=== PATIENT | male | born 1945 | race Caucasian/White ===

== ENCOUNTER → 2021-07-23 12:23 | Outpatient (BNVA) | payer MEDICARE, SELFPAY | PROVIDERS: PCP Nurse Practitioner Family; Visit Provider Internal Medicine Cardiovascular Disease | DX: I25.10 Atherosclerotic heart disease of native coronary artery without angina pectoris (principal); I10 Essential (primary) hypertension | CPT/HCPCS: 93005; 99212 ==

== ENCOUNTER → 2022-07-11 09:26 | Outpatient (REF) | payer MEDICARE, SELFPAY ==
--- NOTE | 2022-07-11 09:30 | CA_ITS ---
Transthoracic Echocardiogram Patient (Last, First, Middle): Luc Boswell A Gender: Male Date of : 1945 Age: 76 Procedure Date: 07/11/2022 Procedure Type: Transthoracic Echocardiogram Location: OP Height: 157.48 cm Weight: 70.76 kg BSA: 1.72 m2 Heart Rate: 63 bpm BP: 120 / 60 mmHg [employer] Teacher: SB Referring MD: Brijesh Kang MD Symptoms: I25.10 - Atherosclerotic heart disease of [place] coronary... Study Quality: Adequate ECG Rhythm: Sinus Conclusions: - The left ventricular systolic function is normal. The calculated ejection fraction is 61% by biplane method. - Mildly increased right ventricular cavity size. - There is moderate calcification of the aortic valve. No significant aortic stenosis. Findings Left Ventricle Normal left ventricular cavity size. There is normal left ventricular wall thickness. The left ventricular systolic function is normal. The calculated ejection fraction is 61% by biplane method. There is no evidence of regional wall motion abnormalities. Diastolic function is normal for age. Right Ventricle Mildly increased right ventricular cavity size. There is normal right ventricular systolic function. Atria Both atria are normal in size. Aortic Valve There is moderate calcification of the aortic valve. There is trace (trivial) aortic valve regurgitation. No significant aortic stenosis. Mitral Valve The mitral valve appears normal. There is trace mitral valve regurgitation. There is no mitral valve stenosis. Pulmonic Valve The pulmonic valve is likely normal. Tricuspid Valve Normal tricuspid valve structure. There is trace tricuspid valve regurgitation. The pulmonary artery systolic pressure is normal. Great Vessels The aortic annulus, sinuses of valsalva, and asc aorta are normal in size. Venous The inferior vena cava is normal in size and collapses greater than 50% with inspiration. Pericardium/Pleural There is no evidence of pericardial effusion. Prior Study Comparison Changes noted compared to prior study dated: 04/06/2015. See comments on RV size. Measurements 2D Linear Measurements IVSd: 0.80 0.6-0.9/0.6-1.0 cm LVIDd: 4.88 3.9-5.3/4.2-5.9 cm LVIDd Index: 2.84 2.4-3.2/2.2-3.1 cm/m2 LVIDs: 2.99 2.0-3.6 cm LVPWd: 0.76 0.7-1.1 cm LA Diam: 3.80 2.7-3.8/3.0-4.0 cm LAIDs Index: 2.21 1.5-2.3 cm/m2 LV Mass: 157.43 67-162/88-224 g LV Mass Index: 91.53 43-95/49-115 g/m2 LVOT Diam: 2.00 3.0+(-)1.3 cm 2D Systolic Function EF 4C: 66.50 >55% EF 2C: 54.70 >55% EF BiP: 61.00 >55% Mitral Valve MV Pk E: 0.61 MV PK A: 0.88 MV Decel Time: 186.00 E/A: 0.70 E'Lateral: 10.60 E'Medial: 4.57 E/E' Med: 13.30 E/E' Lat: 5.70 PHT: 55.00 MVA PHT: 4.00 Decel Wells: 3.26 Aortic Valve AoV Pk Gaurav: 2.02 AoV Mn Gaurav: 1.40 AoV VTI: 0.40 AoV Pk Grad: 16.00 Aov Mn Grad: 9.00 TALON Cont.VTI: 1.79 LVOT LVOT Pk Gaurav: 1.20 LVOT Mn Gaurav: 0.78 LVOT VTI: 0.23 LVOT Pk Grad: 6.00 LVOT Mn Grad: 3.00 LVOT Diam: 2.00 LVOT Area: 3.14 Diastolic Function MV Pk E: 0.61 MV Pk A: 0.88 E/A: 0.70 E'Medial: 4.57 E/E' Med: 13.30 E' Laterial: 10.60 E/E' Lat: 5.70 Right Ventricle TAPSE (mm): 22.60 TVS' Gaurav: 12.40 Tricuspid Valve TR Pk Gaurav: 2.09 TR Pk Grad: 17.00 RVSP: 17.00 Great Vessels Aorta Sinus of Valsalva: 3.40 2.0-3.5 cm Ao Asc: 3.30 2.1-3.4 cm Pulmonary Valve PV Pk Gaurav: 1.06 Peak PV Grad: 4.00 Updated in Other Vendor System with Status of Final Butch Webb MD electronically signed on 07/13/2022 12:10:32 PM with status of Final
== END ==
LOC: HO.CARD 09:26
PROVIDERS: PCP Internal Medicine; Visit Provider Internal Medicine Cardiovascular Disease
DX: I25.10 Atherosclerotic heart disease of native coronary artery without angina pectoris (principal)
CPT/HCPCS: 93306

== ENCOUNTER → 2022-08-28 13:05 | Outpatient (BNVA) | payer MEDICARE, SELFPAY | PROVIDERS: PCP Internal Medicine; Visit Provider Internal Medicine Cardiovascular Disease | DX: I25.10 Atherosclerotic heart disease of native coronary artery without angina pectoris (principal); R07.9 Chest pain, unspecified | CPT/HCPCS: 93005; 99212 ==

== ENCOUNTER → 2022-09-26 09:44 | Outpatient (REF) | payer MEDICARE, SELFPAY ==
--- NOTE | ~2022-09-26 | NM_ITS ---
Lexiscan Myocardial perfusion study Indication: Chest pain, assess for coronary disease ischemia Technique: The patient was brought in for a Lexiscan perfusion study on 09/26/2022 and was injected 0.4 mg of Lexiscan intravenously. Within a minute of this injection 25mCi of sestamibi was given intravenously. Images were obtained using the SPECT gamma camera interlaced with the gating device. Images were obtained in supine position. Resting perfusion study was performed on 09/30/2022. Patient was administered 25 mCi of sestamibi intravenously at rest. Images were then obtained in supine position. Images were processed with the software and compared side to side in short axis, horizontal long axis and vertical long axis views. Total DLP 94mGy-cm. Findings: Raw acquisition reviewed. The stress perfusion study showed moderate to severely diminished tracer uptake in the basal to mid inferior wall. There is improvement with CT attenuation correction and hence could be from diaphragmatic attenuation artifact. There is also minimally reduced tracer uptake in mid anteroseptal wall with improvement during CT attenuation correction. The gated study shows normal LV systolic function with calculated LVEF of 71%. LV cavity is normal in size. The gated study shows normal wall thickening and contraction of segments. Resting study shows no significant perfusion abnormality. Both uncorrected as well as CT attenuation corrected images were reviewed. Gating at rest reveals normal wall motion with ejection fraction at 74%. The findings are consistent with reversible defect in the basal to mid inferior wall but improving with CT attenuation correction and hence could be from diaphragmatic attenuation artifact. Less likely from ischemia. Mild mid to distal mid anteroseptal defect which also improves with CT attenuation correction. NM/NM clark perf SPECT rest & str Impression: 1. Myocardial perfusion imaging study shows reversible mid to distal inferior defect suspected to be from diaphragmatic attenuation artifact; less likely from ischemia. Mild reversible defect in the mid anteroseptal wall, could indicate mild degree of ischemia vs artifact. 2. Gated LVEF is >70% during stress and rest. 3. Transient ischemic dilatation not present. EKG component of the test reported separately..
--- NOTE | 2022-09-26 09:56 | CA_ITS ---
Acquisition Time: 2022-09-26 10:10:11 Total Exercise Time: 00:02:00 Test Indications: CP Medications: SEE CHART Protocol: LEXISCAN Max HR: 102 BPM 71% of Pred: 142 BPM Max BP: 136/074 mmHG Max Work Load: 1.0 METS Pharmacological stress test with Lexican injection, while sitting and kicking his legs, without anginal symptoms, with PACs, with normotensive response to injection, with nondiagnostic EKG for ischemia. In recovery he reported abdominal cramping that was treated with Aminophylline 75mg IVP to reverse Lexiscan with improvement in symptom. Nuclear images pending. Test reviewed with Dr Kang Referred By: Brijesh Kang Overread By: BREONNA MARTELL
== END ==
LOC: HO.CARD 09:44
PROVIDERS: PCP Internal Medicine; Visit Provider Internal Medicine Cardiovascular Disease
DX: R07.9 Chest pain, unspecified (principal)
CPT/HCPCS: 78452; 93017; A9500; J0280; J2785

== ENCOUNTER 2022-10-23 12:24 | Outpatient (REF) | payer MEDICARE, SELFPAY ==
[2022-10-23 12:56] LABS: Basophils Percent Auto 0.2 % (0-2); Eosinophils Absolute Auto 0.1 X10*3/uL (0.0-0.4); Eosinophils Percent Auto 1.8 % (0-4); Hematocrit 40.3 % (42.0-52.0); Hemoglobin 13.6 g/dl (14.0-18.0); Imm Gran Abs Auto 0.01 X10*3/uL (0.00-0.03); Imm Gran Pct Auto 0.2 % (0.0-0.4); Lymphocytes Absolute Auto 1.5 X10*3/uL (1.2-4.9); MANUAL DIFF FLAG NO; Mean Corpuscular HGB Conc 33.7 g/dl (31.0-36.0); Mean Corpuscular Hemoglobin 31.6 pg (27.0-33.0); Mean Corpuscular Volume 93.7 fL (80.0-98.0); Mean Platelet Volume 9.4 fL (9.4-12.4); Monocytes Absolute Auto 0.6 X10*3/uL (0.1-1.2); Monocytes Percent Auto 9.5 % (2-11); Neutrophils Absolute Auto 4.3 x10*3/uL (2.0-8.3); Neutrophils Percent Auto 65.3 % (45-73); Platelet Count 231 X10*3/uL (160-400); Red Cell Distribution Width 13.5 % (11.0-16.0); White Blood Count 6.6 X10*3/uL (4.8-10.8)
[2022-10-23 13:07] LABS: Estimated Average Glucose 117 mg/dL; Hemoglobin A1c % 5.7 %
[2022-10-23 13:25] LABS: Alanine Aminotransferase 19 U/L (0-40); Albumin Level 4.1 g/dL (3.5-5.0); Alkaline Phosphatase 120 U/L (39-117); Anion Gap 12 (12-20); Aspartate Amino Transferase 17 U/L (5-37); Bilirubin Total 0.8 mg/dL (0.0-1.0); Blood Urea Nitrogen 12 mg/dL (9-16); Calcium 9.4 mg/dL (8.4-10.2); Carbon Dioxide 29 mmol/L (22-29); Chloride 106 mmol/L (96-108); Cholesterol 116 mg/dL; Estimated Glomerular Filt Rate > 60; Glucose Random 113 mg/dL (60-115); HDL Cholesterol 37 mg/dL; LDL Cholesterol Calculated 67 mg/dl; Potassium 4.4 mmol/L (3.3-5.1); Sodium 143 mmol/L (135-145); Total Protein 6.3 g/dL (6.5-8.0); Triglycerides 63 mg/dL
== END 2022-10-23 12:25 | disposition home or self-care (01) ==
LOC: HO.LAB 12:24
PROVIDERS: Visit Provider Registered Nurse
DX: Z00.00 Encounter for general adult medical examination without abnormal findings (principal); I10 Essential (primary) hypertension; I25.10 Atherosclerotic heart disease of native coronary artery without angina pectoris; E78.5 Hyperlipidemia, unspecified; R07.9 Chest pain, unspecified; R93.1 Abnormal findings on diagnostic imaging of heart and coronary circulation; R73.01 Impaired fasting glucose; Z95.5 Presence of coronary angioplasty implant and graft; Z79.899 Other long term (current) drug therapy
CPT/HCPCS: 36415; 80053; 80061; 83036; 85025; 99212

== ENCOUNTER 2022-11-21 09:32 | Outpatient (REF) | payer MEDICARE, SELFPAY ==
[2022-11-21 09:50] LABS: MANUAL DIFF FLAG NO
[2022-11-21 10:32] LABS: Basophils Percent Auto 0.2 % (0-2); Eosinophils Absolute Auto 0.1 X10*3/uL (0.0-0.4); Eosinophils Percent Auto 2.3 % (0-4); Hematocrit 43.4 % (42.0-52.0); Hemoglobin 14.8 g/dl (14.0-18.0); Imm Gran Abs Auto 0.01 X10*3/uL (0.00-0.03); Imm Gran Pct Auto 0.2 % (0.0-0.4); Lymphocytes Absolute Auto 1.2 X10*3/uL (1.2-4.9); Lymphocytes Percent Auto 21.9 % (20-40); Mean Corpuscular HGB Conc 34.1 g/dl (31.0-36.0); Mean Corpuscular Volume 93.9 fL (80.0-98.0); Mean Platelet Volume 9.9 fL (9.4-12.4); Monocytes Absolute Auto 0.5 X10*3/uL (0.1-1.2); Monocytes Percent Auto 9.5 % (2-11); Neutrophils Absolute Auto 3.7 x10*3/uL (2.0-8.3); Neutrophils Percent Auto 65.9 % (45-73); Platelet Count 235 X10*3/uL (160-400); Red Blood Count 4.62 X10*6/uL (4.60-5.80); Red Cell Distribution Width 13.2 % (11.0-16.0); White Blood Count 5.6 X10*3/uL (4.8-10.8)
[2022-11-21 11:05] LABS: Iron 124 mcg/dL (45-160); Percent Iron Saturation 41 % (15-50); Total Iron Binding Capacity 301 mcg/dL (228-428); Unsaturated Iron Binding 177 ug/dL
[2022-11-21 11:48] LABS: Ferritin 208 ng/mL (20-250)
[2022-11-21 12:10] LABS: Vitamin B12 520 pg/mL (200-900)
== END 2022-11-21 09:33 | disposition home or self-care (01) ==
LOC: HO.LAB 09:32
PROVIDERS: PCP Internal Medicine; Visit Provider Registered Nurse
DX: D64.9 Anemia, unspecified (principal)
CPT/HCPCS: 36415; 82607; 82728; 83540; 85025

== ENCOUNTER → 2023-04-07 11:03 | Outpatient (BNVA) | payer MEDICARE, SELFPAY | PROVIDERS: PCP Internal Medicine; Referring Provider Internal Medicine; Visit Provider Internal Medicine Cardiovascular Disease | DX: I25.10 Atherosclerotic heart disease of native coronary artery without angina pectoris (principal); I10 Essential (primary) hypertension; Z79.899 Other long term (current) drug therapy | CPT/HCPCS: 99212 ==

== ENCOUNTER 2023-10-20 11:14 | Outpatient (AMB) | payer MEDICARE, SELFPAY ==
--- NOTE | 2023-10-20 11:16 | MHC.OFFVIS ---
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 Allergy (Unknown, Uncoded 10/23/22 12:55) Unknown Medication List - Last Reconciled 10/20/23 by Brijesh Kang MD alfuzosin ER 10 mg PO DAILY aspirin (Adult Aspirin Regimen) 81 mg PO DAILY atorvastatin 80 mg PO DAILY isosorbide mononitrate ER 30 mg PO DAILY lisinopril 10 mg PO DAILY metoprolol succinate ER 50 mg PO DAILY HPI HPI Comments History of Present Illness Details Luc comes for follow-up. Patient since I last saw him denies any exertional chest pain. Remains active. Taking all his medications. Although his prostate medications was stopped due to low blood pressure it seems like. He denies any lightheadedness, syncope. Denies any heart failure symptoms. Denies any palpitations, lightheadedness, syncope. Takes all his medications now. [facility] Medical History Hyperlipidemia HTN (hypertension) CAD (coronary artery disease) Surgical History Stented coronary artery Hx of cardiac cath Family History Father Cancer Mother Cancer Social History Patient Tobacco Use Status: Former Tobacco user Review of Systems Const Denies chills, Denies fatigue, Denies fever(s), Denies frequent falls, Denies weakness, Denies weight gain and Denies weight loss ENT Denies dizziness Card Denies chest pain, Denies leg edema, Denies lightheadedness, Denies palpitations, Denies dyspnea, Denies dyspnea on exertion, Denies orthopnea and Denies other (loss of consciousness) Resp Denies cough, Denies dyspnea and Denies dyspnea on exertion GI Denies hematochezia and Denies change in stool character Musc Denies abnormal gait, Denies muscle weakness, Denies numbness, Denies radiating pain into limb and Denies tingling Neuro Denies abnormal gait, Denies dizziness, Denies frequent falls, Denies numbness, Denies tingling and Denies weakness Endo Denies fatigue and Denies palpitations Physical Exam Vital Signs: Last Vital Signs Pulse 59 10/20/23 11:19 BP 122/80 10/20/23 11:19 BMI result Body Mass Index 27.7 Const General: cooperative, healthy appearing, comfortable and no acute distress Nutritional Appearance: thin and other (Frail appearing elderly man) Orientation/consciousness: patient oriented x3 Neck Neck: Yes normal visual inspection Resp Effort & Inspection: normal respiratory effort Auscultation: clear to auscultation bilaterally, no crackles, no rales, no rhonchi and no wheezes Cardio Jugular venous distension: no JVD Rate: regular rate Rhythm: regular rhythm Heart sounds: S1 normal heart sound present, S2 normal heart sound present, no gallops, no murmurs and no rubs GI Inspection: Yes normal to inspection Neuro General: patient oriented x3 Extrem General: Yes normal to inspection, No no pedal edema and No calf tenderness Psych Appearance: grossly normal Mental Status: mental status grossly normal Speech and movement: Normal speech and movement present Office Procedures EKG Details: EKG shows normal sinus rhythm at [address] changes [id number]-[id number], Complete Assessment & Plan Assessment & Plan (1) CAD (coronary artery disease): Code(s): I25.10 - Atherosclerotic heart disease of [place] coronary artery without angina pectoris Plan: CAD with prior drug clinic sent to [facility] with recent exertional symptoms which are now controlled on dual antianginal therapy. He has mildly abnormal myocardial perfusion imaging. Advised to call me with any recurrent exertional symptoms on dual antianginal therapy that might require cardiac catheterization. Continue aggressive risk factor modification. Continue high-intensity statin therapy. Target goal LDL closer to 60 mg/dL. Continue low-dose aspirin therapy for life. Advised to maintain activity level as tolerated. (2) HTN (hypertension): Code(s): I10 - Essential (primary) hypertension Plan: Hypertension which is well optimized on today's exam. Continue current therapy. Importance of good blood pressure control was discussed. Advised to maintain adequate hydration. Low-salt diet was discussed. Advised to monitor blood pressure at home maintain a log. Will follow up in the clinic in 6 months. Thank you for allowing me to partake in his care Orders: Orders Lipid Panel Today I25.10 - Atherosclerotic heart disease of [place] coronary artery without angina pectoris Coding Level of Care Code Est Pt Level 4 (09084) Diagnoses CAD (coronary artery disease) I25.10 HTN (hypertension) I10 CPT Codes EKG - CPT: 22302-[id number], Complete ([id number])
[2023-10-20 11:19] VITALS: BP 122/80; PULSE 59; BMI 27.7
== END 2023-10-20 11:37 | disposition home or self-care (01) ==
PROVIDERS: Visit Provider Internal Medicine Cardiovascular Disease
DX: I25.10 Atherosclerotic heart disease of native coronary artery without angina pectoris (principal); I10 Essential (primary) hypertension
CPT/HCPCS: 93010; 99214

== ENCOUNTER → 2023-10-20 11:14 | Outpatient (BNVA) | payer MEDICARE, SELFPAY | PROVIDERS: Visit Provider Internal Medicine Cardiovascular Disease | DX: I25.10 Atherosclerotic heart disease of native coronary artery without angina pectoris (principal); R00.1 Bradycardia, unspecified; I10 Essential (primary) hypertension; Z98.890 Other specified postprocedural states; Z95.5 Presence of coronary angioplasty implant and graft | CPT/HCPCS: 93005; 99212 ==

== ENCOUNTER 2023-10-28 10:14 | Outpatient (REF) | payer MEDICARE, SELFPAY ==
[2023-10-28 11:16] LABS: Cholesterol 140 mg/dL (<200); HDL Cholesterol 42 mg/dL (>40); LDL Cholesterol Calculated 77 mg/dL (<100); Triglycerides 105 mg/dL (<150)
== END 2023-10-28 10:15 | disposition home or self-care (01) ==
LOC: HO.LAB 10:14
PROVIDERS: PCP Internal Medicine; Visit Provider Internal Medicine Cardiovascular Disease
DX: I25.10 Atherosclerotic heart disease of native coronary artery without angina pectoris (principal)
CPT/HCPCS: 36415; 80061

== ENCOUNTER 2023-12-10 12:00 | Emergency (ER) | payer MEDICARE, SELFPAY ==
--- NOTE | ~2023-12-10 | XR_ITS ---
EXAMINATION: XR KNEE LEFT XR KNEE RIGHT CLINICAL INFORMATION: Knee pain COMPARISON: None TECHNIQUE: Right knee, 4 views Left knee, 4 views FINDINGS: Left knee: Bones have normal alignment. No fracture, subluxation or joint effusion. Moderate narrowing of medial tibiofemoral joint space with subarticular sclerosis and small marginal osteophytes. Also, marginal osteophytes are present at mildly degenerated without femoral and lateral tibiofemoral compartments. There are mild peripheral vascular calcifications in the lower extremity. Right knee: No fracture, subluxation or joint effusion. Minimal tibial osteophytes at tibiofemoral compartments. There are small osteophytes of the patella. Peripheral vascular calcifications are noted. XR/XR knee RT 3V IMPRESSION: * No acute osseous injury at either knee. * Osteoarthritis of the knees, left knee worse than right knee. At the left knee, the joint degeneration is worst (moderate in degree) at the medial tibiofemoral compartment.
--- NOTE | ~2023-12-10 | XR_ITS ---
EXAMINATION: XR LUMBOSACRAL SPINE CLINICAL INFORMATION: Back pain COMPARISON: Lumbar spine radiographs 08/13/2013 TECHNIQUE: Three views of the lumbosacral spine. FINDINGS: Degenerative changes are noted throughout the visualized spine with relative sparing of only L5-S1. Joint space narrowing seen elsewhere most marked from L2 through L5. There is endplate sclerosis and osteophyte formation. No bony destructive lesions are seen. XR/XR lumbar spine 2-3V IMPRESSION: Degenerative changes throughout the spine as described above.
--- NOTE | ~2023-12-10 | XR_ITS ---
EXAMINATION: XR KNEE LEFT XR KNEE RIGHT CLINICAL INFORMATION: Knee pain COMPARISON: None TECHNIQUE: Right knee, 4 views Left knee, 4 views FINDINGS: Left knee: Bones have normal alignment. No fracture, subluxation or joint effusion. Moderate narrowing of medial tibiofemoral joint space with subarticular sclerosis and small marginal osteophytes. Also, marginal osteophytes are present at mildly degenerated without femoral and lateral tibiofemoral compartments. There are mild peripheral vascular calcifications in the lower extremity. Right knee: No fracture, subluxation or joint effusion. Minimal tibial osteophytes at tibiofemoral compartments. There are small osteophytes of the patella. Peripheral vascular calcifications are noted. XR/XR knee LT 3V IMPRESSION: * No acute osseous injury at either knee. * Osteoarthritis of the knees, left knee worse than right knee. At the left knee, the joint degeneration is worst (moderate in degree) at the medial tibiofemoral compartment.
[2023-12-10 12:27] VITALS: BP 135/76; PULSE 71; RESP 18; TEMP 36.4; O2SAT 95; BMI 29.7
--- NOTE | 2023-12-10 12:27 | ED_ITS ---
HPI - Extremity Injury (Lower) General Chief Complaint: Extremity Injury, Lower Stated Complaint: Knee pain Time Seen by Provider: 12/10/23 14:07 Source: patient Mode of arrival: ambulatory Limitations: no limitations History of Present Illness HPI Narrative: Patient states that after shoveling the heavy snow he developed bilateral knee pain, no falling, nothing popped. complaint: knee injury Onset (ago): hour(s) Place: home Related Data Home Medications Medication Instructions Recorded Confirmed aspirin 81 mg tablet,delayed 81 mg PO DAILY 07/23/21 10/20/23 release (Adult Aspirin Regimen) alfuzosin 10 mg tablet,extended 10 mg PO DAILY 10/23/22 10/20/23 release 24 hr Previous Rx's Medication Instructions Recorded atorvastatin 80 mg tablet 80 mg PO DAILY #30 tabs 07/25/23 metoprolol succinate 50 mg 50 mg PO DAILY #90 tabs 09/23/23 tablet,extended release 24 hr ezetimibe 10 mg tablet (Zetia) 10 mg PO DAILY #30 tabs 10/29/23 isosorbide mononitrate 30 mg 30 mg PO DAILY #30 tabs 11/05/23 tablet,extended release 24 hr lisinopril 10 mg tablet 10 mg PO DAILY #90 tabs 12/02/23 meloxicam 7.5 mg tablet 7.5 mg PO DAILY #20 tabs 12/10/23 Allergies Allergy/AdvReac Type Severity Reaction Status Date / Time No Known Allergies Allergy Verified 04/07/23 11:26 Review of Systems Review of Systems: Yes all other systems are reviewed and are negative Neurologic: Denies Sensory deficit (Neuro) PMFSH Past Medical History Onset Date is defined in the Problem List Problems that require an onset date and time if occurred within 24 hrs of arrival to the ED Aortic Dissection and Rupture; Neurologic impairment; Cardiopulmonary Arrest; Endotracheal Intubation; Insertion or Replacement of Mechanical Circulatory Assist Device Medical History Hyperlipidemia HTN (hypertension) CAD (coronary artery disease) Surgical History Stented coronary artery Hx of cardiac cath Family History Family History Father Cancer Mother Cancer Social History Social History Patient Tobacco Use Status: Former Tobacco user Physical Exam Vital Signs: Vital Signs: Last Vital Signs Temp 97.5 F 12/10/23 12:27 Pulse 71 12/10/23 12:27 Resp 18 12/10/23 12:27 BP 135/76 12/10/23 12:27 Pulse Ox 95 12/10/23 12:27 O2 Del Method Room Air 12/10/23 12:27 BMI result Body Mass Index 29.7 Const: General: healthy appearing Nutritional Appearance: average body habitus Orientation/consciousness: oriented to person and patient oriented x3 Limitations: no limitations HEENT: Head: Yes normal to inspection Ears: external ears normal General nose exam: Normal external nose present Mouth: Normal oral and palatal mucosa present and oropharynx normal Throat: Yes posterior oropharynx normal Eyes: General: appearance normal, both eyes and all related structures Neck: Other: supple Neck: Yes normal visual inspection Chest: Chest palpation & inspection: normal inspection of the chest Resp: Auscultation: clear to auscultation bilaterally Cardio: Jugular venous distension: no JVD Rate: regular rate Rhythm: regular rhythm Heart sounds: S1 normal heart sound present and S2 normal h eart sound present GI: Inspection: Yes normal to inspection Palpation (GI): Soft to palpation, nontender and No hepatosplenomegaly present Auscultation: normal bowel sounds : General: Yes no CVA tenderness Back/Spine/Pelvis: Other: no tenderness Back: no CVA tenderness Skin: General skin exam: no rashes or lesions noted Neuro: General: oriented to person and patient oriented x3 Cranial nerves: Yes CN's II-XII intact bilaterally Motor exam (neuro): 5/5 motor strength present throughout Sensory Exam: No Sensory deficit (Neuro) Extrem: Other: bilateral chronic changes, no effusion, no erythema, Psych: Appearance: grossly normal Course Course Course Narrative: RME: 78 yo M w/ PMHx HTN, CAD, HLD, presenting to the ED c/o bilateral knee pain & low back pain s/p shoveling bottom of driveway. Denies injury or fall X-rays ordered Full HPI, ROS and PE to be performed by primary ED provider. Reevaluation(s) Reevaluation #1: Patient with mild strain from shoveliing snow Time: 14:18 Medical Decision Making Differential Diagnosis Differential Diagnoses: The differential diagnosis associated with the presentation includes (back strain, knee strain, internal derangement of knees, osteoarthritis) Independent Interpretation I performed an independent interpretation of an: Plain X-Ray (Knee: degenerative changes of the knees, Lumbar moderate degenerative changes) Tests considered The following testing was considered but not selected: MRI of knee and back were considered, but no acute changes Discharge Plan Discharge Clinical Impression: Lumbar back pain, Acute knee pain Patient Disposition: Home, Self-Care Instructions: Acute Low Back Pain (ED), Arthralgia (ED) Prescriptions: New meloxicam 7.5 mg tablet 7.5 mg PO DAILY Qty: 20 0RF No Action atorvastatin 80 mg tablet 80 mg PO DAILY Qty: 30 11RF metoprolol succinate 50 mg tablet extended release 24 hr 50 mg PO DAILY Qty: 90 3RF ezetimibe [Zetia] 10 mg tablet 10 mg PO DAILY Qty: 30 6RF Rx Instructions: This is for your cholesterol. Continue your atorvastatin along with this new med. isosorbide mononitrate 30 mg tablet extended release 24 hr 30 mg PO DAILY Qty: 30 11RF lisinopril 10 mg tablet 10 mg PO DAILY Qty: 90 3RF aspirin [Adult Aspirin Regimen] 81 mg tablet,delayed release (DR/EC) 81 mg PO DAILY alfuzosin 10 mg tablet extended release 24 hr 10 mg PO DAILY Referrals: [facility] [Provider Group] - 5 days (call for follow up)
== END 2023-12-10 15:12 | disposition home or self-care (01) ==
LOC: HO.ED 14:28
PROVIDERS: Emergency Provider Emergency Medicine; PCP Internal Medicine
DX: M54.50 Low back pain, unspecified (principal); M25.562 Pain in left knee; M25.561 Pain in right knee
CPT/HCPCS: 72100; 73562; 99282; 99283

== ENCOUNTER 2023-12-24 10:38 | Outpatient (AMB) | payer MEDICARE, SELFPAY ==
--- NOTE | 2023-12-24 10:39 | MHC.OFFVIS ---
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 Patient reports his pain is a 8 on the 1-10 pain scale. He denies any injury and has been going on for about 3 years. He states that he has had cortisone injections in the past and they did help somewhat. He has also had viscosupplementation injections which gave him minimal relief. He has done physical therapy exercises which aggravated his pain. Has also tried Tylenol and anti-inflammatory medicines which gave him minimal relief. The patient wishes to hold off on surgery for as long as possible. Allergies No Known Allergies Allergy (Verified 12/24/23 10:46) Medication List - Last Reconciled 12/24/23 by Wiliam Rowan MD alfuzosin ER 10 mg PO DAILY aspirin (Adult Aspirin Regimen) 81 mg PO DAILY atorvastatin 80 mg PO DAILY ezetimibe (Zetia) 10 mg PO DAILY finasteride 5 mg PO DAILY isosorbide mononitrate ER 30 mg PO DAILY lisinopril 10 mg PO DAILY meloxicam 7.5 mg PO DAILY metoprolol succinate ER 50 mg PO DAILY [facility] Medical History Hyperlipidemia HTN (hypertension) CAD (coronary artery disease) Surgical History Stented coronary artery Hx of cardiac cath Family History Father Cancer Mother Cancer Social History Patient Tobacco Use Status: Former Tobacco user Physical Exam Vital Signs: BMI result Body Mass Index 29.5 Const Other: Well-nourished well-developed very friendly male awake alert and oriented x3 in no acute distress Extrem Other: Bilateral lower extremity examination shows good capillary refill, no skin lesions noted, normal sensation light touch Bilateral knee examination shows minimal effusions, palpable crepitus with range of motion, pain with range of motion, no instability Office Procedures Joint Injection/Drain Joint Injection/Drain Primary Site: left knee Prep: site was prepped using aseptic technique Injected: 40 mg of, DepoMedrol and 1% plain lidocaine Procedure: The patient tolerated the procedure well Coding 98958 - Large joint Procedure code (CPT) selection complete Joint Injection/Drain Joint Injection/Drain Primary Site: right knee Prep: site was prepped using aseptic technique Injected: 40 mg of, DepoMedrol and 1% plain lidocaine Procedure: The patient tolerated the procedure well Coding 24945 - Large joint Procedure code (CPT) selection complete Results Reviewed Results Reviewed: X-rays of the patient's bilateral knee show moderate joint space narrowing, subchondral sclerosis, no acute bony abnormalities Assessment & Plan Assessment & Plan (1) Arthritis of left knee: Code(s): M17.12 - Unilateral primary osteoarthritis, left knee (2) Arthritis of right knee: Code(s): M17.11 - Unilateral primary osteoarthritis, right knee Plan Mr. Boswell presents with bilateral knee pains due to degenerative joint disease. I had a lengthy discussion with the patient regarding the treatment options. He wishes to hold off on surgery for as long as possible. I agree with this plan. The risks and benefits of bilateral knee cortisone injections were discussed at length with the patient. The patient wished to proceed. He tolerated the injections well. Will continue with his home exercise program. He will follow up with me on an as-needed basis should his symptoms not plateau at an unacceptable level over the next few months. Feel free to call me at any time should questions regarding his orthopedic management arise. Thank you very much for asking me to see this very friendly gentleman. I spent 22 minutes in reviewing the patient's records and imaging studies, seeing the patient and documenting in the medical record. Orders: Orders AMB Joint Injection/Aspiration Today M17.11 - Unilateral primary osteoarthritis, right knee AMB Joint Injection/Aspiration Today M17.12 - Unilateral primary osteoarthritis, left knee Coding Level of Care Code New Pt Level 2 (89586) Diagnoses Arthritis of left knee M17.12 Arthritis of right knee M17.11 CPT Codes Coding - 89333 Large joint: 64613 - Large joint ([id number]) Coding - 59264 Large joint: 48733 - Large joint ([id number])
[2023-12-24 10:40] VITALS: BMI 29.5
== END 2023-12-24 11:34 | disposition home or self-care (01) ==
PROVIDERS: PCP Internal Medicine; Visit Provider Orthopaedic Surgery
DX: M17.0 Bilateral primary osteoarthritis of knee (principal)
CPT/HCPCS: 20610; 99202

== ENCOUNTER → 2023-12-24 10:38 | Outpatient (BNVA) | payer MEDICARE, SELFPAY | PROVIDERS: PCP Internal Medicine; Visit Provider Orthopaedic Surgery | DX: M17.11 Unilateral primary osteoarthritis, right knee (principal); M17.12 Unilateral primary osteoarthritis, left knee | CPT/HCPCS: 20610; 99202; J1020 ==

== ENCOUNTER 2024-02-19 10:46 | Outpatient (AMB) | payer MEDICARE, SELFPAY ==
[2024-02-19 11:14] VITALS: BMI 29.5
--- NOTE | 2024-02-19 11:14 | MHC.OFFVIS ---
Intake Vital Signs 02/19/24 11:14 Height 5 ft 1 in Weight 156 lb BMI 29.5 Intake Visit Reasons: OV-Bilateral knee pain-follow up Intake Note: Luc is a 78 year old male who presents with bilateral knee pains, left greater than right. The patient states that at this point his right knee pain is tolerable to him. He describes his left knee pain as sharp and severe in nature. The patient states that he underwent left knee arthroscopic surgery by Dr. Esteves in 2014. He got very good relief from that procedure. He wishes to hold off on total knee replacement surgery for as long as possible. The patient states that his right knee will give out several times per day. He has had cortisone injections as well as viscosupplementation injections which gave him minimal relief. Has also done physical therapy exercises which aggravated his pain. Allergies No Known Allergies Allergy (Verified 02/19/24 11:17) Medication List - Last Reconciled 02/20/24 by Wiliam Rowan MD alfuzosin ER 10 mg PO DAILY aspirin (Adult Aspirin Regimen) 81 mg PO DAILY atorvastatin 80 mg PO DAILY ezetimibe (Zetia) 10 mg PO DAILY finasteride 5 mg PO DAILY isosorbide mononitrate ER 30 mg PO DAILY lisinopril 10 mg PO DAILY meloxicam 7.5 mg PO DAILY metoprolol succinate ER 50 mg PO DAILY [facility] Medical History Hyperlipidemia HTN (hypertension) CAD (coronary artery disease) Surgical History Stented coronary artery Hx of cardiac cath Family History Father Cancer Mother Cancer Social History Patient Tobacco Use Status: Former Tobacco user Current occupational status: retired Current occupation: 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 Physical Exam Vital Signs: BMI result Body Mass Index 29.5 Const Other: Well-nourished well-developed very friendly male awake alert and oriented x3 in no acute distress Extrem Other: Bilateral lower extremity examination shows good capillary refill, no skin lesions noted, normal sensation light touch Left knee examination shows a minimal effusion, minimal crepitus with range of motion, tenderness along his medial joint line, positive Debbie's test, no instability Results Reviewed Results Reviewed: X-rays of the patient's left knee show mild to moderate joint space narrowing, no acute bony abnormalities Assessment & Plan Assessment & Plan (1) Left knee pain: Code(s): M25.562 - Pain in left knee Plan Mr. Boswell presents with progressively worsening left knee pain and mechanical symptoms due to early degenerative joint disease as well as a tear of his medial meniscus. I had a lengthy discussion with the patient regarding the treatment options. At this point the patient has failed continued non operative treatments. The risks and benefits of revision left knee arthroscopic surgery versus total knee replacement surgery were discussed at length with the patient. The patient wishes to proceed with the arthroscopic procedure. Does understand that he may not get 100% relief of his symptoms depending on the severity of his degenerative changes. The patient will be scheduled for next available date. He will follow-up as instructed. Feel free to call me at any time should questions regarding his orthopedic management arise. Well-nourished well-developed very friendly male awake alert and oriented x3 in no acute distress Coding Level of Care Code Est Pt Level 2 (46380) Diagnoses Left knee pain M25.562
== END 2024-02-19 11:43 | disposition home or self-care (01) ==
PROVIDERS: PCP Internal Medicine; Visit Provider Orthopaedic Surgery
DX: M17.12 Unilateral primary osteoarthritis, left knee (principal); S83.242A Other tear of medial meniscus, current injury, left knee, initial encounter; M25.561 Pain in right knee
CPT/HCPCS: 99213

== ENCOUNTER → 2024-02-19 10:46 | Outpatient (BNVA) | payer MEDICARE, SELFPAY | PROVIDERS: PCP Internal Medicine; Visit Provider Orthopaedic Surgery | DX: M25.562 Pain in left knee (principal); M25.561 Pain in right knee; Z79.899 Other long term (current) drug therapy | CPT/HCPCS: 99212 ==

== ENCOUNTER 2024-03-01 13:41 | Outpatient (AMB) | payer MEDICARE, SELFPAY ==
--- NOTE | 2024-03-01 13:51 | A.OFFVIS_ITS ---
Intake Vital Signs 03/01/24 13:52 Height 5 ft 1 in Weight 159 lb 9.835 oz BMI 30.2 BP 132/62 Blood Pressure Location Lt brachial Position Sitting Pulse 63 Pulse Source Monitor Intake Visit Reasons: Pre-op/Dr. Rowan/Lt knee arthroscopy 04/02 Ice Rink Attendant Required: No Allergies No Known Allergies Allergy (Verified 03/01/24 13:53) Medication List - Last Reconciled 03/01/24 by Nikki Quintanilla NP-C alfuzosin ER 10 mg PO DAILY aspirin (Adult Aspirin Regimen) 81 mg PO DAILY atorvastatin 80 mg PO DAILY ezetimibe (Zetia) 10 mg PO DAILY finasteride 5 mg PO DAILY isosorbide mononitrate ER 30 mg PO DAILY lisinopril 10 mg PO DAILY meloxicam 7.5 mg PO DAILY metoprolol succinate ER 50 mg PO DAILY HPI Pre-op/Dr. Rowan/Lt knee arthroscopy 04/02 HPI Details Alexis is an 78-year-old male past medical history of hypertension, hyperlipidemia, CAD, RCA stent who presents for follow-up and preop cardiac clearance. Today he reports that he will be needing arthroscopic knee surgery early next month. He says otherwise he has been feeling well with no concerning symptoms. He denies chest discomfort at rest or with activity. No shortness of breath, palpitations, lightheadedness, presyncope, syncope, PND, orthopnea or edema. Reports good activity tolerance. He describes that he did 2-1/2 hours of yard work yesterday which he tolerated well. He has stairs in his home and is able to climb them without any chest discomfort or shortness of breath. He does have some left knee discomfort with stair climbing. Takes his meds as directed. 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 Review of Systems Const All systems reviewed & are unremarkable except as noted in HPI and below ENT Denies dizziness Card Denies chest pain, Denies chest pain at rest, Denies chest pain with activity, Denies rapid heart rate, Denies pedal edema, Denies edema, Denies leg edema, Denies lightheadedness, Denies palpitations, Denies dyspnea, Denies dyspnea on exertion and Denies orthopnea Resp Denies cough, Denies dyspnea and Denies dyspnea on exertion GI Denies hematochezia and Denies change in stool character Musc Denies abnormal gait, Denies limited range of motion, Denies muscle cramps, Denies muscle weakness, Denies numbness, Denies radiating pain into limb, Denies stiffness and Denies tingling Neuro Denies abnormal gait, Denies dizziness, Denies numbness and Denies tingling Endo Denies palpitations Physical Exam Vital Signs: Last Vital Signs Pulse 63 03/01/24 13:52 BP 132/62 03/01/24 13:52 BMI result Body Mass Index 30.2 Const General: cooperative, healthy appearing, comfortable and no acute distress Orientation/consciousness: patient oriented x3 Neck Neck: Yes normal visual inspection and Yes no JVD Resp Effort & Inspection: normal respiratory effort Auscultation: clear to auscultation bilaterally, no crackles, no rales, no rhonchi and no wheezes Cardio Jugular venous distension: no JVD Rate: regular rate Rhythm: regular rhythm Heart sounds: S1 normal heart sound present, S2 normal heart sound present, no murmurs and no rubs Neuro General: patient oriented x3 Extrem General: Yes normal to inspection, No no pedal edema and No calf tenderness Psych Appearance: grossly normal Mental Status: mental status grossly normal Speech and movement: Normal speech and movement present Office Procedures EKG Details: Today, read by me, normal sinus rhythm, no acute ST or T-wave abnormalities, rate 63, QTC 399 milliseconds [id number], Complete Assessment & Plan Assessment & Plan (1) CAD (coronary artery disease): Code(s): I25.10 - Atherosclerotic heart disease of [place] coronary artery without angina pectoris Plan: History of CAD. Cardiac catheterization in 01/2011 showed significant RCA stenosis, MATTHEW was placed. He did have a nuclear stress test 09/30/2022 for reports of chest discomfort. It showed a reversible mid to distal inferior defect thought to be diaphragm attenuation less likely to be from ischemia. Also mild reversible defect in the mid anterior septal wall which again could be mild ischemia versus artifact. At follow-up he had no reported symptoms and was just managed medically. At this time he continues to report feeling good. He describes no anginal symptoms and good activity tolerance. EKG done today shows normal sinus rhythm with no acute ST or T-wave abnormalities. Will continue on aspirin indefinitely. Continue atorvastatin and Zetia with ideal LDL goal less than 70. Continue isosorbide and metoprolol. Continue lisinopril for blood pressure control. Vital signs in normal range today. No med changes made. Signs and symptoms of angina reviewed. Cardiology follow-up in 6 months, sooner if needed (2) Stented coronary artery: Comment: Drug-eluting stent to proximal RCA, 3 x 24 mm-January 2011 Code(s): Z95.5 - Presence of coronary angioplasty implant and graft Plan: As above (3) HTN (hypertension): Code(s): I10 - Essential (primary) hypertension Plan: Well controlled. No med changes made (4) Hyperlipidemia: Code(s): E78.5 - Hyperlipidemia, unspecified Plan: Sharon LDL goal less than 70. Labs from 10/23/2022 showed LDL 67. Labs from 10/28/2023 shows LDL 77. Continues on high-dose atorvastatin and Zetia. Benefit of weight loss reviewed with him. Increase physical activity as tolerated. Plan for recheck prior to his next visit. (5) Preop cardiovascular exam: Code(s): Z01.810 - Encounter for preprocedural cardiovascular examination Plan: Preop for left knee arthroscopic surgery at [facility] with Dr. Rowan. Patient may proceed with surgery with an intermediate cardiac risk. Aspirin can be held as needed. Continue all other cardiac medications. Call/consult Cardiology if needed. Plan Time spent on chart review, documentation, interview and assessment Orders: Orders Lipid Panel 6 Months I25.10 - Atherosclerotic heart disease of [place] coronary artery without angina pectoris Comprehensive Met. Panel 6 Months I25.10 - Atherosclerotic heart disease of [place] coronary artery without angina pectoris Coding Level of Care Code Est Pt Level 4 (64983) Diagnoses CAD (coronary artery disease) I25.10 Stented coronary artery Z95.5 HTN (hypertension) I10 Hyperlipidemia E78.5 Preop cardiovascular exam Z01.810 CPT Codes EKG - CPT: 58655-[id number], Complete ([id number]) Time Spent (min) 28
[2024-03-01 13:52] VITALS: BP 132/62; PULSE 63; BMI 30.2
== END 2024-03-01 14:23 | disposition home or self-care (01) ==
PROVIDERS: PCP Internal Medicine; Visit Provider Nurse Practitioner Family
DX: I25.10 Atherosclerotic heart disease of native coronary artery without angina pectoris (principal); Z95.5 Presence of coronary angioplasty implant and graft; I10 Essential (primary) hypertension; E78.5 Hyperlipidemia, unspecified; Z01.810 Encounter for preprocedural cardiovascular examination
CPT/HCPCS: 93010; 99214

== ENCOUNTER → 2024-03-01 13:41 | Outpatient (BNVA) | payer MEDICARE, SELFPAY | PROVIDERS: PCP Internal Medicine; Visit Provider Nurse Practitioner Family | DX: Z01.810 Encounter for preprocedural cardiovascular examination (principal); I10 Essential (primary) hypertension; E78.5 Hyperlipidemia, unspecified; I25.10 Atherosclerotic heart disease of native coronary artery without angina pectoris; Z95.5 Presence of coronary angioplasty implant and graft | CPT/HCPCS: 93005; 99212 ==

== ENCOUNTER 2024-03-17 10:41 | Outpatient (AMB) | payer MEDICARE, SELFPAY ==
--- NOTE | 2024-03-17 11:21 | A.OFFVIS_ITS ---
Intake Vital Signs 03/17/24 11:21 Height 5 ft 1 in Weight 159 lb BMI 30.0 Intake Visit Reasons: Pre-Lt Knee 04/02/24 Intake Note: Luc is a 78 year old male who presents with bilateral knee pains and giving way, left greater than right. The patient states that at this point his right knee pain is tolerable to him. He describes his left knee pain as sharp and severe in nature. The patient states that he underwent left knee arthroscopic surgery by Dr. Esteves in 2014. He got very good relief from that procedure. He wishes to hold off on total knee replacement surgery for as long as possible. The patient states that his right knee will give out several times per day. He has had cortisone injections as well as viscosupplementation injections which gave him minimal relief. Has also done physical therapy exercises which aggravated his pain. Allergies No Known Allergies Allergy (Verified 03/17/24 11:31) Medication List - Last Reconciled 03/17/24 by Wiliam Rowan MD alfuzosin ER 10 mg PO DAILY aspirin (Adult Aspirin Regimen) 81 mg PO DAILY atorvastatin 80 mg PO DAILY ezetimibe (Zetia) 10 mg PO DAILY finasteride 5 mg PO DAILY isosorbide mononitrate ER 30 mg PO DAILY lisinopril 10 mg PO DAILY metoprolol succinate ER 50 mg PO DAILY [facility] Medical History Hyperlipidemia HTN (hypertension) CAD (coronary artery disease) Surgical History Stented coronary artery Hx of cardiac cath Family History Father Cancer Mother Cancer Social History Patient Tobacco Use Status: Former Tobacco user Current occupational status: retired Current occupation: 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 Physical Exam Vital Signs: BMI result Body Mass Index 30.0 Const Other: Well-nourished well-developed very friendly male awake alert and oriented x3 in no acute distress Extrem Other: Bilateral lower extremity examination shows good capillary refill, no skin lesions noted, normal sensation light touch Left knee examination shows a minimal effusion, mild crepitus with range of motion, tenderness along his medial joint line, positive Debbie's test, no instability Results Reviewed Results Reviewed: X-rays of the patient's left knee show mild to moderate diffuse joint space narrowing, no acute bony abnormalities Assessment & Plan Assessment & Plan (1) Tear of medial meniscus of left knee: Code(s): S83.242A - Other tear of medial meniscus, current injury, left knee, initial encounter Plan Mr. Boswell presents with progressively worsening left knee pain and mechanical symptoms due to early degenerative joint disease as well as a tear of his medial meniscus. I had a lengthy discussion with the patient regarding the treatment options. He wishes to hold off on total knee replacement surgery for as long as possible. The risks and benefits of revision left knee arthroscopic surgery were discussed at length with the patient. The patient wishes to proceed with surgery. Because of the patient's mechanical symptoms I do feel that he will get significant reduction in his symptoms from revision arthroscopic surgery. He does understand that he may not get 100% relief of his symptoms depending on the severity of his degenerative changes. The patient was given a prescription for pain medicine at his preoperative appointment. He will follow-up as instructed. Feel free to call me at any time should questions regarding his or thopedic management arise. I spent 22 minutes in reviewing the patient's records and imaging studies, seeing the patient and documenting in the medical record. Medications: New oxycodone Partial Fill upon patient request. 5 mg PO Q6H 1 week PRN 20 tabs 0RF pain Coding Level of Care Code Est Pt Level 2 (63478) Diagnoses Tear of medial meniscus of left knee S83.242A
== END 2024-03-17 11:52 | disposition home or self-care (01) ==
PROVIDERS: PCP Internal Medicine; Visit Provider Orthopaedic Surgery
DX: S83.242A Other tear of medial meniscus, current injury, left knee, initial encounter (principal)
CPT/HCPCS: 99213

== ENCOUNTER → 2024-03-17 10:41 | Outpatient (BNVA) | payer MEDICARE, SELFPAY | PROVIDERS: PCP Internal Medicine; Visit Provider Orthopaedic Surgery | DX: S83.242A Other tear of medial meniscus, current injury, left knee, initial encounter (principal); X58.XXXA Exposure to other specified factors, initial encounter; Y93.9 Activity, unspecified; Y92.9 Unspecified place or not applicable; Y99.9 Unspecified external cause status | CPT/HCPCS: 99212 ==

== ENCOUNTER 2024-03-25 09:32 | Outpatient (REF) | payer MEDICARE, SELFPAY ==
[2024-03-25 09:46] LABS: MANUAL DIFF FLAG NO
[2024-03-25 10:07] LABS: Basophils Percent Auto 0.3 % (0-2); Eosinophils Absolute Auto 0.2 X10*3/uL (0.0-0.4); Eosinophils Percent Auto 3.3 % (0-4); Hemoglobin 15.2 g/dl (14.0-18.0); Imm Gran Abs Auto 0.02 X10*3/uL (0.00-0.03); Imm Gran Pct Auto 0.3 % (0.0-0.4); Lymphocytes Percent Auto 15.6 % (20-40); Mean Corpuscular HGB Conc 34.5 g/dl (31.0-36.0); Mean Corpuscular Volume 92.6 fL (80.0-98.0); Mean Platelet Volume 9.2 fL (9.4-12.4); Monocytes Absolute Auto 0.8 X10*3/uL (0.1-1.2); Monocytes Percent Auto 11.2 % (2-11); Neutrophils Absolute Auto 4.6 x10*3/uL (2.0-8.3); Neutrophils Percent Auto 69.3 % (45-73); Platelet Count 255 X10*3/uL (160-400); Red Blood Count 4.75 X10*6/uL (4.60-5.80); Red Cell Distribution Width 13.1 % (11.0-16.0); White Blood Count 6.7 X10*3/uL (4.8-10.8)
[2024-03-25 10:29] LABS: Estimated Average Glucose 131 mg/dL; Hemoglobin A1c % 6.2 % (<6.0)
[2024-03-25 11:11] LABS: Alanine Aminotransferase 22 U/L (0-40); Albumin Level 4.3 g/dL (3.5-5.0); Alkaline Phosphatase 147 U/L (39-117); Anion Gap 12 (12-20); Aspartate Amino Transferase 18 U/L (5-37); Bilirubin Total 0.7 mg/dL (0.0-1.0); Blood Urea Nitrogen 14 mg/dL (9-16); Calcium 10.3 mg/dL (8.4-10.2); Carbon Dioxide 28 mmol/L (22-29); Chloride 106 mmol/L (96-108); Cholesterol 97 mg/dL (<200); Estimated Glomerular Filt Rate > 60; Glucose Random 120 mg/dL (60-115); HDL Cholesterol 37 mg/dL (>40); LDL Cholesterol Calculated 48 mg/dL (<100); Potassium 4.9 mmol/L (3.3-5.1); Sodium 141 mmol/L (135-145); Total Protein 7.1 g/dL (6.5-8.0); Triglycerides 63 mg/dL (<150)
== END 2024-03-25 09:33 | disposition home or self-care (01) ==
LOC: HO.LAB 09:32
PROVIDERS: PCP Internal Medicine; Visit Provider Internal Medicine
DX: I10 Essential (primary) hypertension (principal); R73.01 Impaired fasting glucose
CPT/HCPCS: 36415; 80053; 80061; 83036; 84443; 85025

== ENCOUNTER 2024-04-02 05:55 | Day surgery (SDC) | payer MEDICARE, SELFPAY ==
--- NOTE | 2024-03-31 12:35 | HO.ANESPROP2 ---
HPI - Anesthesia Eval Consult details Narrative: 78yo M for Left Knee Arthroscopy with partial medial meniscectomy Cardiac optimized REPLACED BY [facility] Active Problems Active Problems: All Active Problems Tear of medial meniscus of left knee (Acute) Preop cardiovascular exam (Acute) Left knee pain (Acute) Arthritis of right knee (Acute) Arthritis of left knee (Acute) Abnormal nuclear cardiac imaging test (Acute) Exertional chest pain (Acute) Stented coronary artery (Acute) Hyperlipidemia (Acute) HTN (hypertension) (Acute) CAD (coronary artery disease) (Acute) Past Medical History Medical History Impaired fasting glucose Back pain BPH (benign prostatic hyperplasia) GERD (gastroesophageal reflux disease) Arthritis Hyperlipidemia HTN (hypertension) CAD (coronary artery disease) Family History Family History Father Cancer Mother Cancer Surgical History Surgical History History of excision of mass H/O colonoscopy Stented coronary artery Social History Social History Are you a primary home care aide to a significant other at home: No Do you presently have visiting nurse or other home services: No Patient Tobacco Use Status: Former Tobacco user Quit Date: age 30's Tobacco use type: Cigarette Current occupational status: retired Current occupation: 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 [employer] Allergies Allergy/AdvReac Type Severity Reaction Status Date / Time No Known Allergies Allergy Verified 04/14/24 10:43 Home Medications ?Medication ?Instructions ?Recorded ?Confirmed ?Last Taken ?Type aspirin 81 mg tablet,delayed 81 mg PO DAILY 07/23/21 04/14/24 Unknown History release (Adult Aspirin Regimen) finasteride 5 mg tablet 5 mg PO DAILY 12/24/23 04/14/24 Unknown History multivitamin 1 tab PO DAILY 03/30/24 04/14/24 Unknown History omeprazole 20 mg tablet,delayed 20 mg PO DAILY 03/30/24 04/14/24 04/02/24 History release Exam Height,Weight and Vital Signs: Height 5 ft 1 in Weight 72.121 kg Pertinent Lab Results Pertinent Lab Results: Laboratory Tests 03/25/24 09:45 WBC 6.7 Hgb 15.2 Hct 44.0 Plt Count 255 Sodium 141 Potassium 4.9 Chloride 106 Carbon Dioxide 28 BUN 14 Creatinine 0.77 Narrative Narrative: EKG 03/2024 normal sinus rhythm, no acute ST or T-wave abnormalities, rate 63, QTC 399 milliseconds Per cardiac clearance note: Cardiac catheterization in 01/2011 showed significant RCA stenosis, MATTHEW was placed. He did have a nuclear stress test 09/30/2022 for reports of chest discomfort. It showed a reversible mid to distal inferior defect thought to be diaphragm attenuation less likely to be from ischemia. Also mild reversible defect in the mid anterior septal wall which again could be mild ischemia versus artifact. At follow-up he had no reported symptoms and was just managed medically. Assessment and Plan Assessment Anesthesia Assessment: Chart Reviewed
[2024-04-02] VITALS (9 sets, daily range): BP systolic 126–155; BP diastolic 65–73; PULSE 60–79; RESP 16–18; TEMP 36.3; O2SAT 94–100; BMI 29.9
[2024-04-02] MEDS: Lactated Ringers 1,000 ML 100 ML IVCONT (06:35)
--- NOTE | 2024-04-02 07:41 | HO.ANESPROP2 ---
[facility] Active Problems Active Problems: All Active Problems Tear of medial meniscus of left knee (Acute) Preop cardiovascular exam (Acute) Left knee pain (Acute) Arthritis of right knee (Acute) Arthritis of left knee (Acute) Abnormal nuclear cardiac imaging test (Acute) Exertional chest pain (Acute) Stented coronary artery (Acute) Hyperlipidemia (Acute) HTN (hypertension) (Acute) CAD (coronary artery disease) (Acute) Past Medical History Medical History Impaired fasting glucose Back pain BPH (benign prostatic hyperplasia) GERD (gastroesophageal reflux disease) Arthritis Hyperlipidemia HTN (hypertension) CAD (coronary artery disease) Family History Family History Father Cancer Mother Cancer Family history of problems with anesthesia: No Surgical History Surgical History History of excision of mass H/O colonoscopy Stented coronary artery History of Problems with Anesthesia: No Social History Social History Are you a primary inspector health care facilities to a significant other at home: No Do you presently have visiting nurse or other home services: No Patient Tobacco Use Status: Former Tobacco user Quit Date: age 30's Tobacco use type: Cigarette Use of substances other than those prescribed or required for medical reasons: No Have you been hit, kicked, punched, or otherwise hurt by someone within the past year? If so, by whom?: No Are you DNR?: No Advance Directives Information Provided: Yes (as above noted) Advance Directives on File: No Recently lost weight without trying: No Eating poorly because of decreased appetite: No Nutrition Risks: Surgical patient >75years Current occupational status: retired Current occupation: 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 Meds Allergies Allergy/AdvReac Type Severity Reaction Status Date / Time No Known Allergies Allergy Verified 03/17/24 11:31 Active Medications: Current Medications Lactated Ringer's (Lr) 1,000 mls @ 100 mls/hr IVCONT .Q10H MEERA Last Admin: 04/02/24 06:35 Dose: 100 mls/hr Home Medications ?Medication ?Instructions ?Recorded ?Confirmed ?Last Taken ?Type aspirin 81 mg tablet,delayed 81 mg PO DAILY 07/23/21 03/30/24 Unknown History release (Adult Aspirin Regimen) finasteride 5 mg tablet 5 mg PO DAILY 12/24/23 03/30/24 Unknown History multivitamin 1 tab PO DAILY 03/30/24 03/30/24 Unknown History omeprazole 20 mg tablet,delayed 20 mg PO DAILY 03/30/24 03/30/24 04/02/24 History release Exam Height,Weight and Vital Signs: Height 5 ft 1 in Weight 71.849 kg Last Vital Signs Temp 97.4 F 04/02/24 06:17 Pulse 68 04/02/24 06:17 Resp 18 04/02/24 06:17 BP 126/72 04/02/24 06:17 Pulse Ox 95 04/02/24 06:17 O2 Del Method Room Air 04/02/24 06:17 Airway Mallampati Class: II TM Dist: >3cm Neck ROM: Full Heart: RRR Lungs: CTA Assessment and Plan Assessment Anesthesia Assessment: Anesthesia Plan Discussed Final Anesthetic Review Family History of Problems with Anesthesia: No History of Problems with Anesthesia: No NPO: Yes ASA Class: III Final Preanesthetic Review: Meds/Allgs Chart Reviewed, Consent Obtained/Reviewed and Anes Risks/Benef Reviewed Patient Risk: Intermediate Procedure Risk: Low Anesthetic Plan Anesthetic Plan: GA Disposition: Standard PACU
--- NOTE | 2024-04-02 08:50 | P.BOP_ITS ---
Brief Operative Note Date of Service: 04/02/24 Pre-op diagnosis: Left knee medial meniscus tear, left knee lateral meniscus tear, left knee degenerative joint disease Post-op diagnosis: same Procedure: Left knee diagnostic arthroscopy with left knee arthroscopic partial medial and lateral meniscectomies, left knee arthroscopic chondroplasty of the undersurface of the patella and medial femoral condyle Implants: none Surgeon: Wiliam Rowan MD Anesthesia: GETA Was an Welding Inspector used for this Procedure?: No Estimated blood loss (mL): 10 Pathology: none sent Condition: stable Disposition: PACU
--- NOTE | 2024-04-02 08:51 | W.PM.OPN ---
Operative Note Operative Note Date of Service: 04/02/24 Narrative: After the patient was identified as Luc Boswell and his left knee was initialed by myself they were brought to the operating room where general anesthesia was induced by the anesthesiologist in routine fashion. The patient was given 2 g of IV Ancef preoperatively for infection prophylaxis. The patient's left lower extremity was prepped and draped in sterile fashion. A formal time-out was completed. Marcaine was injected into the planned incision sites as well as the patient's left knee joint. A #11 scalpel blade was used to make an anterolateral portal 1 cm proximal to the joint line and 1 cm lateral to the patellar tendon. Blunt trocar technique was used to enter the suprapatellar pouch with the knee in extension. Diagnostic arthroscopy showed multiple bands of thickened plica which would be excised at the end of the procedure. There were no loose bodies or abnormalities found in either the medial or lateral gutters. The articular surface of the patella showed diffuse grades 2 and 3 degenerative changes. The trochlear groove articular surface showed diffuse grades 1 and 2 degenerative changes. The patient's knee was flexed to 45 degrees and a valgus force was placed upon it. The medial compartment was entered. An anteromedial portal was made 1 cm proximal to the joint line and 1 cm medial to the patellar tendon. Probing of the medial meniscus showed a radial tear of the posterior horn. A partial medial meniscectomy was performed using the arthroscopic shaver. Following the partial meniscectomy the remainder of the meniscus tissue was stable. There were diffuse grades 3 and 4 degenerative changes of the medial femoral condyle as well as grades 3 and 4 degenerative changes of the medial tibial plateau. The articular surface of the medial femoral condyle was then made smooth using the arthroscopic shaver. The articular surface of the medial tibial plateau was already smooth so no chondroplasty was indicated. The patient's knee was placed into a neutral position. There was no injury to the anterior cruciate ligament. The patient's knee was then placed in the figure of 4 position and the lateral compartment was entered. There was a radial tear of the anterior horn of the lateral meniscus. Thus, a partial lateral meniscectomy was performed using the arthroscopic shaver. Following the partial meniscectomy the remainder of the meniscus tissue was stable. There were minimal degenerative changes of the lateral femoral condyle and lateral tibial plateau. The patient's knee was once again brought into extension and the suprapatellar pouch was entered. The arthroscopic shaver and the ArthroCare Wand were used to excise the thickened bands of plica. The undersurface of the patella was then made smooth using the arthroscopic shaver. The articular surface of the trochlear groove was already smooth so no chondroplasty was indicated. The knee joint was irrigated and then drained. All arthroscopic instruments were removed. The 2 portals were closed with 3-0 nylon interrupted suture. The knee joint was injected with Marcaine. Dry sterile dressing and Joe bandages were placed over the patient's knee. The patient was awoken and extubated in the operating room. The patient was transferred to the recovery room in stable condition.
[2024-04-02] MEDS: cefTRIAXone sodium 1 GM in 0.9 % Sodium Chloride 50 ML IV (09:03)
[2024-04-02] MEDS: fentaNYL citrate/PF 100 MCG/2 ML VIAL 25 MCG IVPUSH (09:15)
--- NOTE | 2024-04-02 13:59 | HO.POSTANES ---
Post Anesthesia Evaluation Post Anesthesia Evaluation Date of Service: 04/02/24 Vital Signs: Vital Signs Temp Pulse Resp BP Pulse Ox O2 Del Method O2 Flow Rate 04/02/24 09:25 79 18 155/73 H 95 Room Air 04/02/24 09:20 60 16 146/70 H 100 Simple Mask 4 04/02/24 09:15 18 04/02/24 09:10 65 18 154/70 H 100 Simple Mask 4 04/02/24 08:55 64 16 141/72 H 100 Simple Mask 4 04/02/24 08:50 64 16 148/71 H 94 Simple Mask 4 04/02/24 08:45 62 16 146/65 H 100 Simple Mask 8 04/02/24 08:40 62 18 143/66 H 98 Simple Mask 8 04/02/24 06:17 97.4 F 68 18 126/72 95 Room Air Anesthesia: Monitored Mental Status: Awake Pain Control: Satisfactory Nausea/Vomiting: None Hydration: Adequate Anesthesia-Related Issues: No Anes. Related Issues
== END 2024-04-02 10:16 | disposition home or self-care (01) ==
PROVIDERS: PCP Internal Medicine; Visit Provider Orthopaedic Surgery
PROC: (CPT 29870; principal; 2024-04-02 07:30)
DX: S83.242A Other tear of medial meniscus, current injury, left knee, initial encounter (principal); S83.282A Other tear of lateral meniscus, current injury, left knee, initial encounter; M17.12 Unilateral primary osteoarthritis, left knee; M67.52 Plica syndrome, left knee; X58.XXXA Exposure to other specified factors, initial encounter; Y93.9 Activity, unspecified; Y92.9 Unspecified place or not applicable; Y99.8 Other external cause status; I10 Essential (primary) hypertension; I25.10 Atherosclerotic heart disease of native coronary artery without angina pectoris; Z95.5 Presence of coronary angioplasty implant and graft; E78.5 Hyperlipidemia, unspecified; Z98.890 Other specified postprocedural states; Z79.82 Long term (current) use of aspirin; Z79.899 Other long term (current) drug therapy; Z87.891 Personal history of nicotine dependence
CPT/HCPCS: 29880; 29876; J0131; J0171; J0690; J0696; J1100; J2405; J2704; J2795; J3010

== ENCOUNTER → 2024-04-02 05:55 | Outpatient (BNV) | payer MEDICARE, SELFPAY | PROVIDERS: PCP Internal Medicine; Visit Provider Orthopaedic Surgery | DX: S83.242A Other tear of medial meniscus, current injury, left knee, initial encounter (principal); S83.282A Other tear of lateral meniscus, current injury, left knee, initial encounter | CPT/HCPCS: 29880 ==

== ENCOUNTER 2024-04-14 10:39 | Outpatient (AMB) | payer MEDICARE, SELFPAY ==
--- NOTE | 2024-04-14 10:40 | MHC.OFFVIS ---
Intake Visit Reasons: PO-Lt Knee 04/02/24 Intake Note: Luc is a 78 year old male who presents for his post operative appointment for his Left knee on 04/02/2024. Patient reports he is doing well with some discomfort. He denies any fevers or chills. He has been walking short distances for exercise. Allergies No Known Allergies Allergy (Verified 04/14/24 10:43) Medication List - Last Reconciled 04/14/24 by Wiliam Rowan MD aspirin (Adult Aspirin Regimen) 81 mg PO DAILY atorvastatin 80 mg PO DAILY ezetimibe (Zetia) 10 mg PO DAILY finasteride 5 mg PO DAILY isosorbide mononitrate ER 30 mg PO DAILY lisinopril 10 mg PO DAILY metoprolol succinate ER 50 mg PO DAILY multivitamin 1 tab PO DAILY omeprazole 20 mg PO DAILY oxycodone 5 mg PO Q6H PRN 1 week PFSH Medical History Impaired fasting glucose Back pain BPH (benign prostatic hyperplasia) GERD (gastroesophageal reflux disease) Arthritis Hyperlipidemia HTN (hypertension) CAD (coronary artery disease) Surgical History History of excision of mass H/O colonoscopy Stented coronary artery Family History Father Cancer Mother Cancer Social History Are you a primary child caregiver to a significant other at home: No Do you presently have visiting nurse or other home services: No Patient Tobacco Use Status: Former Tobacco user Quit Date: age 30's Tobacco use type: Cigarette Current occupational status: retired Current 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 Boswell is doing well after undergoing left knee arthroscopic surgery on 04/02/2024. His sutures were removed and Steri-Strips placed over his incisions. He will gradually progress to activities as tolerated. He will follow up with me in 6 weeks' time for repeat clinical examination. Feel free to call me at any time should questions regarding his orthopedic management arise. Coding Level of Care Code Global (53817) Diagnoses Left knee pain M25.562
== END 2024-04-14 11:08 | disposition home or self-care (01) ==
PROVIDERS: PCP Internal Medicine; Visit Provider Orthopaedic Surgery
DX: M25.562 Pain in left knee (principal)
CPT/HCPCS: 99024

== ENCOUNTER → 2024-04-14 10:39 | Outpatient (BNVA) | payer MEDICARE, SELFPAY | PROVIDERS: PCP Internal Medicine; Visit Provider Orthopaedic Surgery | DX: Z48.02 Encounter for removal of sutures (principal); M25.562 Pain in left knee | CPT/HCPCS: 99212 ==

== ENCOUNTER 2024-05-26 08:59 | Outpatient (AMB) | payer MEDICARE, SELFPAY ==
[2024-05-26 09:06] VITALS: BMI 30.2
--- NOTE | 2024-05-26 09:06 | A.OFFVIS_ITS ---
Vital Signs 05/26/24 09:06 Height 5 ft 1 in Weight 160 lb BMI 30.2 Intake Visit Reasons: PO-Lt Knee 04/02/24 DR Intake Note: Luc is an 78 year old male who presents today with his for a post operative appointment s/p Left Knee Arthroscopy 04/02/24. Patient reports that he is having mild pain on occasion, He is taking Tylenol for this mild pain which is offering relief. He was able to mow his lawn recently with only mild discomfort. He denies any fevers or chills. Allergies No Known Allergies Allergy (Verified 04/14/24 10:43) Medication List - Last Reconciled 05/26/24 by Wiliam Rowan MD aspirin (Adult Aspirin Regimen) 81 mg PO DAILY atorvastatin 80 mg PO DAILY ezetimibe (Zetia) 10 mg PO DAILY finasteride 5 mg PO DAILY isosorbide mononitrate ER 30 mg PO DAILY lisinopril 10 mg PO DAILY metoprolol succinate ER 50 mg PO DAILY multivitamin 1 tab PO DAILY omeprazole 20 mg PO DAILY [facility] Medical History Impaired fasting glucose Back pain BPH (benign prostatic hyperplasia) GERD (gastroesophageal reflux disease) Arthritis Hyperlipidemia HTN (hypertension) CAD (coronary artery disease) Surgical History History of excision of mass H/O colonoscopy Stented coronary artery Family History Father Cancer Mother Cancer Social History Are you a primary child care to a significant other at home: No Do you presently have visiting nurse or other home services: No Patient Tobacco Use Status: Former Tobacco user Tobacco use type: Cigarette Current occupational status: retired 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 Langevin continues to do well after undergoing left knee arthroscopic surgery on 04/02/2024. He does have residual discomfort due to degenerative joint disease. The patient wishes to hold off on total knee replacement surgery for as long as possible. I agree with this plan. He will continue with his activity modifications. He will contact me prior to his follow-up appointment in 2 months should any questions or concerns arise. Feel free to call me at any time should questions regarding his orthopedic management arise. Coding Level of Care Code Global (20506) Diagnoses Left knee pain M25.562
== END 2024-05-26 09:32 | disposition home or self-care (01) ==
PROVIDERS: PCP Internal Medicine; Visit Provider Orthopaedic Surgery
DX: M25.562 Pain in left knee (principal)
CPT/HCPCS: 99024

== ENCOUNTER → 2024-05-26 08:59 | Outpatient (BNVA) | payer MEDICARE, SELFPAY | PROVIDERS: PCP Internal Medicine; Visit Provider Orthopaedic Surgery | DX: Z47.89 Encounter for other orthopedic aftercare (principal); M25.562 Pain in left knee; Z98.890 Other specified postprocedural states | CPT/HCPCS: 99212 ==

== ENCOUNTER 2024-09-08 10:37 | Outpatient (REF) | payer MEDICARE, SELFPAY ==
[2024-09-09 11:59] LABS: Free Prostate Spec Ag 0.5 ng/mL; Percent Free Prostate Spec Ag 21 % (calc) (>25); Prostate Specific Ag Total 2.4 ng/mL (< OR = 4.0)
== END 2024-09-08 10:38 | disposition home or self-care (01) ==
LOC: HO.LAB 10:37
PROVIDERS: PCP Internal Medicine; Visit Provider Urology
DX: M17.12 Unilateral primary osteoarthritis, left knee (principal); R97.20 Elevated prostate specific antigen [PSA]
CPT/HCPCS: 20610; 36415; 84154; 99212; J1010; J2003

== ENCOUNTER 2024-09-08 11:08 | Outpatient (AMB) | payer MEDICARE, SELFPAY ==
--- NOTE | 2024-09-08 11:09 | MHC.OFFVIS ---
Intake Visit Reasons: PO-Lt Knee 04/02/24 Intake Note: Luc is a 78 year old male that presents today for a PO-Lt Knee 04/02/24 . The patient states that he has continued mild to moderate discomfort in his left knee. He denies any fevers or chills. He continues with his home exercise program. He has taken Tylenol and aspirin which gave him only mild relief. He wishes to hold off on total knee replacement surgery for as long as possible. Allergies No Known Allergies Allergy (Verified 09/08/24 11:10) Medication List - Last Reconciled 09/08/24 by Wiliam Rowan MD aspirin (Adult Aspirin Regimen) 81 mg PO DAILY atorvastatin 80 mg PO DAILY ezetimibe (Zetia) 10 mg PO DAILY finasteride 5 mg PO DAILY isosorbide mononitrate ER 30 mg PO DAILY lisinopril 10 mg PO DAILY metoprolol succinate ER 50 mg PO DAILY multivitamin 1 tab PO DAILY omeprazole 20 mg PO DAILY [facility] Medical History Impaired fasting glucose Back pain BPH (benign prostatic hyperplasia) GERD (gastroesophageal reflux disease) Arthritis Hyperlipidemia HTN (hypertension) CAD (coronary artery disease) Surgical History History of excision of mass H/O colonoscopy Stented coronary artery Family History Father Cancer Mother Cancer Social History Are you a primary acute care assistant to a significant other at home: No Do you presently have visiting nurse or other home services: No Patient Tobacco Use Status: Former Tobacco user Tobacco use type: Cigarette Current occupational status: retired Current 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: 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 Physical Exam Const Other: Well-nourished well-developed very friendly male awake alert and oriented x3 in no acute distress Extrem Other: Bilateral lower extremity examination shows good capillary refill, no skin lesions noted, normal sensation light touch Left knee examination shows a minimal effusion, mild crepitus with range of motion, pain with range of motion, no instability Office Procedures Joint Injection/Aspiration Joint Injection/Aspiration Primary Site: left knee Prep: site was prepped using aseptic technique Injected: 40 mg of, DepoMedrol and 1% plain lidocaine Procedure: The patient tolerated the procedure well Coding - Large joint Procedure code (CPT) selection complete Assessment & Plan Assessment & Plan (1) Arthritis of left knee: Code(s): M17.12 - Unilateral primary osteoarthritis, left knee Category: Medical Plan Mr. Boswell presents with left knee pain due to degenerative joint disease. I had a lengthy discussion with the patient regarding the treatment options. He wishes to hold off on left total knee replacement surgery for as long as possible. I agree with this plan. The risks and benefits of a left knee cortisone injection were discussed at length with the patient. The patient wished to proceed. He tolerated the injection well. He will continue with his home exercise program. He will contact me prior to his follow-up appointment in 3 months should any questions or concerns arise. Feel free to call me at any time should questions regarding his orthopedic management arise. I spent 21 minutes in reviewing the patient's records and imaging studies, seeing the patient and documenting in the medical record. Orders: Orders AMB Joint Injection/Aspiration Today M17.12 - Unilateral primary osteoarthritis, left knee Coding Level of Care Code Est Pt Level 3 (96040) Complex EM visit Add On G2211 Diagnoses Arthritis of left knee M17.12 CPT Codes Coding - Large joint: 48887 - Large joint ([id number])
== END 2024-09-08 11:34 | disposition home or self-care (01) ==
PROVIDERS: PCP Internal Medicine; Visit Provider Orthopaedic Surgery
DX: M17.12 Unilateral primary osteoarthritis, left knee (principal)
CPT/HCPCS: 20610; 99213

== ENCOUNTER 2024-11-03 08:39 | Outpatient (REF) | payer MEDICARE, SELFPAY ==
[2024-11-03 09:41] LABS: MANUAL DIFF FLAG NO
[2024-11-03 10:49] LABS: Basophils Percent Auto 0.4 % (0-2); Eosinophils Absolute Auto 0.2 X10*3/uL (0.0-0.4); Eosinophils Percent Auto 2.1 % (0-4); Hematocrit 40.2 % (42.0-52.0); Hemoglobin 14.1 g/dl (14.0-18.0); Imm Gran Abs Auto 0.03 X10*3/uL (0.00-0.03); Imm Gran Pct Auto 0.4 % (0.0-0.4); Lymphocytes Absolute Auto 1.3 X10*3/uL (1.2-4.9); Lymphocytes Percent Auto 15.5 % (20-40); Mean Corpuscular HGB Conc 35.1 g/dl (31.0-36.0); Mean Corpuscular Hemoglobin 33.1 pg (27.0-33.0); Mean Corpuscular Volume 94.4 fL (80.0-98.0); Mean Platelet Volume 9.6 fL (9.4-12.4); Monocytes Absolute Auto 0.8 X10*3/uL (0.1-1.2); Monocytes Percent Auto 9.6 % (2-11); Neutrophils Absolute Auto 5.9 x10*3/uL (2.0-8.3); Platelet Count 242 X10*3/uL (160-400); Red Blood Count 4.26 X10*6/uL (4.60-5.80); Red Cell Distribution Width 13.4 % (11.0-16.0); White Blood Count 8.2 X10*3/uL (4.8-10.8)
[2024-11-03 10:54] LABS: Estimated Average Glucose 128 mg/dL; Hemoglobin A1C 154.9189 umol/L; Hemoglobin A1c % 6.1 % (<6.0)
[2024-11-03 11:11] LABS: Appearance Urine Clear; Color Urine Yellow; Glucose Urine UA Negative (Negative); Leukocyte Esterase Urine Small (1+) (Negative); Nitrite Urine Negative (Negative); UMIC TRIGGER UACC YES; Urine Blood Negative (Negative); Urine Ketones Negative (Negative); Urine Protein Negative (Neg-Trace)
[2024-11-03 11:22] LABS: Bacteria Urine None Seen (None Seen); Hyaline Casts Urine 0-2 /LPF (0-2); RBC Urine 0-2 /HPF (0-2); Squamous Epithelial Cell Urine 0-2 /HPF (0-2); UACC Culture Trigger YES; WBC Urine 0-5 /HPF (0-5)
[2024-11-03 11:33] LABS: Alanine Aminotransferase 18 U/L (0-40); Albumin Level 4.1 g/dL (3.5-5.0); Alkaline Phosphatase 124 U/L (39-117); Anion Gap 13 (12-20); Aspartate Amino Transferase 23 U/L (5-37); Bilirubin Total 0.7 mg/dL (0.0-1.0); Blood Urea Nitrogen 18 mg/dL (9-16); Calcium 9.7 mg/dL (8.4-10.2); Carbon Dioxide 27 mmol/L (22-29); Chloride 107 mmol/L (96-108); Cholesterol 96 mg/dL (<200); Estimated Glomerular Filt Rate > 60; Glucose Random 114 mg/dL (60-115); HDL Cholesterol 37 mg/dL (>40); LDL Cholesterol Calculated 47 mg/dL (<100); Potassium 4.5 mmol/L (3.3-5.1); Sodium 142 mmol/L (135-145); Total Protein 6.6 g/dL (6.5-8.0); Triglycerides 61 mg/dL (<150)
[2024-11-03 11:37] LABS: TSH reflex Free T4 1.11 uIU/mL (0.32-4.0)
== END 2024-11-03 08:40 | disposition home or self-care (01) ==
LOC: HO.LAB 08:39
PROVIDERS: PCP Internal Medicine; Visit Provider Internal Medicine Cardiovascular Disease
DX: R06.09 Other forms of dyspnea (principal); I10 Essential (primary) hypertension; R73.01 Impaired fasting glucose; I25.10 Atherosclerotic heart disease of native coronary artery without angina pectoris; R35.1 Nocturia; R06.02 Shortness of breath
CPT/HCPCS: 36415; 80053; 80061; 81001; 83036; 84443; 85025; 87086; 99212

== ENCOUNTER 2024-11-03 08:39 | Outpatient (AMB) | payer MEDICARE, SELFPAY ==
--- NOTE | 2024-11-03 08:42 | MHC.OFFVIS ---
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 He said over the recent past he has been getting increasing shortness of breath doing exertional activity like working in the [employer] for short period time or going up a flight of stairs or walking on a flat land. Denies any exertional chest discomfort with it. However these symptoms are very bothersome to him. Said he occasionally wheezes and has some dry cough. Denies any clear orthopnea, PND, leg edema. He said he has not been exercising much due to back issues as well as new issues. He denies any prolonged palpitation irregular heartbeat. No lightheadedness, syncope. Takes all his medications. Scheduled for blood work today. [facility] Medical History Impaired fasting glucose Back pain BPH (benign prostatic hyperplasia) GERD (gastroesophageal reflux disease) Arthritis Hyperlipidemia HTN (hypertension) CAD (coronary artery disease) Surgical History History of excision of mass H/O colonoscopy Stented coronary artery Family History Father Cancer Mother Cancer Social History Are you a primary personal care service provider to a significant other at home: No Do you presently have visiting nurse or other home services: No Patient Tobacco Use Status: Former Tobacco user Tobacco use type: Cigarette Current occupational status: retired Current occupation: 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 Review of Systems Const Denies chills, Denies fatigue, Denies fever(s), Denies frequent falls, Denies weakness, Denies weight gain and Denies weight loss ENT Denies dizziness Card Denies chest pain, Denies leg edema, Denies lightheadedness, Denies palpitations, Denies dyspnea, Denies dyspnea on exertion, Denies orthopnea and Denies other (loss of consciousness) Resp Denies cough, Denies dyspnea and Denies dyspnea on exertion GI Denies hematochezia and Denies change in stool character Musc Denies abnormal gait, Denies muscle weakness, Denies numbness, Denies radiating pain into limb and Denies tingling Neuro Denies abnormal gait, Denies dizziness, Denies frequent falls, Denies numbness, Denies tingling and Denies weakness Endo Denies fatigue and Denies palpitations Physical Exam Vital Signs: Last Vital Signs Pulse 66 11/03/24 08:43 BP 120/74 11/03/24 08:43 BMI result Body Mass Index 28.7 Const General: cooperative, healthy appearing, comfortable and no acute distress Orientation/consciousness: patient oriented x3 Neck Neck: Yes normal visual inspection and Yes no JVD Resp Effort & Inspection: normal respiratory effort Auscultation: clear to auscultation bilaterally, no crackles, no rales, no rhonchi and no wheezes Cardio Jugular venous distension: no JVD Rate: regular rate Rhythm: regular rhythm Heart sounds: S1 normal heart sound present, S2 normal heart sound present, Murmur heart sound present systolic early, decrescendo and crescendo and no rubs Neuro General: patient oriented x3 Extrem General: Yes normal to inspection, No no pedal edema and No calf tenderness Psych Appearance: grossly normal Mental Status: mental status grossly normal Speech and movement: Normal speech and movement present Assessment & Plan Assessment & Plan (1) SOB (shortness of breath) on exertion: Code(s): R06.02 - Shortness of breath Category: Medical Plan: Patient with increasing symptoms exertional shortness of breath with lesser exertion, myocardial ischemia as well as LV systolic and diastolic function needs to be evaluated. This was discussed with him. It is possible this could be related to his deconditioning related to his advancing age as well as loss of muscle mass as well as reduced exercise activity due to his musculoskeletal issues. Pulmonary etiology is also likely. Will obtain a Lexiscan myocardial perfusion imaging in near future along with an echocardiogram to assess for cardiac dysfunction. This was discussed with him. He is agreeable. If negative can pursue chest x-ray and pulmonary function test through your office. (2) CAD (coronary artery disease): Code(s): I25.10 - Atherosclerotic heart disease of [place] coronary artery without angina pectoris Category: Medical Plan: CAD with remote RCA stenting many years ago. Myocardial perfusion imaging 2 years ago was mildly abnormal although not suggestive of significant ischemia. Will evaluate with myocardial perfusion imaging as above. Continue low-dose aspirin therapy. Continue high-intensity statin therapy along with ezetimibe to target goal LDL closer to 60 mg/dL. He is pursuing blood work today. Continue dual antianginal therapy with metoprolol as well as isosorbide. Continue monitor blood pressure at home maintain a log. (3) HTN (hypertension): Code(s): I10 - Essential (primary) hypertension Category: Medical Plan: Hypertension which is currently well optimized advised to monitor blood pressure at home maintain a log. Goal blood pressure less than 130/84. Low-salt diet was discussed. Advise to continue current therapy. Will follow up in the clinic in 1 year's time, sooner p.r.n.. Thank you for allowing me to partake in his care Orders: Orders CA echo transthoracic complete Today R06.02 - Shortness of breath CA lexiscan stress w clark Today R06.02 - Shortness of breath Coding Level of Care Code Est Pt Level 4 (03922) Complex EM visit Add On G2211 Diagnoses SOB (shortness of breath) on exertion R06.02 CAD (coronary artery disease) I25.10 HTN (hypertension) I10
[2024-11-03 08:43] VITALS: BP 120/74; PULSE 66; BMI 28.7
== END 2024-11-03 09:32 | disposition home or self-care (01) ==
PROVIDERS: PCP Internal Medicine; Visit Provider Internal Medicine Cardiovascular Disease
DX: R06.02 Shortness of breath (principal); I25.10 Atherosclerotic heart disease of native coronary artery without angina pectoris; I10 Essential (primary) hypertension
CPT/HCPCS: 99214; G2211

== ENCOUNTER → 2024-12-03 09:40 | Outpatient (REF) | payer MEDICARE, SELFPAY ==
--- NOTE | 2024-12-03 09:47 | CA_ITS ---
Transthoracic Echocardiogram Patient (Last, First, Middle): Luc Boswell A Gender: Male Date of : 1945 Age: 79 Procedure Date: 12/03/2024 Procedure Type: Transthoracic Echocardiogram Location: OP Height: 154.94 cm Weight: 70.76 kg BSA: 1.70 m2 Heart Rate: bpm BP: 130 / 70 mmHg Director Operating Room: TO Referring MD: Brijesh Knag MD Java Support Engineer: Brijesh Kang MD Symptoms: R06.02 - Shortness of breath Study Quality: Fair ECG Rhythm: Sinus Conclusions: - 1. Normal LV ejection fraction of 60 65% with grade 1 diastolic dysfunction 2. Mildly dilated left atrium 3. Mild aortic stenosis 4. Normal RV systolic pressure 5. No gross pericardial effusion Findings Procedure Information The study quality is limited by the patients inability to tolerate the test. Left Ventricle Normal left ventricular size, thickness, and systolic function. The visually estimated ejection fraction is between 60-65%. Spectral Doppler is indicative of an impaired relaxation filling pattern. E/E prime ratio is <8, consistent with normal filling pressures. Evidence suggests grade I (mild) diastolic dysfunction. Right Ventricle Normal right ventricular cavity size and systolic function. Atria The left atrium is mildly dilated. There is lipomatous hypertrophy of the interatrial septum. There is no evidence of interatrial shunt. The right atrium was not well visualized. Aortic Valve There is moderate calcification of the aortic valve. There is moderate thickening of the aortic valve. There is mild aortic valve stenosis. There is mild aortic valve regurgitation. Mitral Valve There is mild anterior and posterior mitral leaflet thickening. There is mild mitral annular calcification. There is trace mitral valve regurgitation. There is no mitral valve stenosis. Pulmonic Valve The pulmonic valve was not well visualized. Tricuspid Valve Likely normal tricuspid valve structure and function. There is trace tricuspid valve regurgitation. The right ventricular systolic pressure is normal. The right ventricular systolic pressure is 25 mmHg. Normal right atrial pressure. There is no evidence of pulmonary hypertension. Great Vessels All visible segments of the aorta are normal in size. The pulmonary artery was not well visualized. There is no dilatation of the ascending aorta measuring 3.30 cm. Small plaque is seen in the sino tubular ridge. Venous The inferior vena cava is normal in size and collapses greater than 50% with inspiration. Pericardium/Pleural There is no evidence of pericardial effusion. Prior Study Comparison Changes noted compared to prior study dated: 07/11/2022. mild aortic stenosis is noted Measurements 2D Linear Measurements IVSd: 0.97 0.6-0.9/0.6-1.0 cm LVIDd: 4.21 3.9-5.3/4.2-5.9 cm LVIDd Index: 2.48 2.4-3.2/2.2-3.1 cm/m2 LVIDs: 2.98 2.0-3.6 cm LVPWd: 0.84 0.7-1.1 cm LA Diam: 3.30 2.7-3.8/3.0-4.0 cm LAIDs Index: 1.94 1.5-2.3 cm/m2 LV Mass: 148.95 67-162/88-224 g LV Mass Index: 87.62 43-95/49-115 g/m2 LVOT Diam: 2.00 3.0+(-)1.3 cm 2D Systolic Function EF 4C: 60.40 >55% EF 2C: 59.60 >55% EF BiP: 60.40 >55% Mitral Valve MV Pk E: 0.49 MV PK A: 0.77 MV Decel Time: 223.00 E/A: 0.60 E'Lateral: 9.03 E'Medial: 5.44 E/E' Med: 9.10 E/E' Lat: 5.50 PHT: 65.00 MVA PHT: 3.38 Decel Mellette: 2.21 Aortic Valve AoV Pk Gaurav: 2.19 AoV Mn Gaurav: 1.49 AoV VTI: 0.44 AoV Pk Grad: 19.00 Aov Mn Grad: 10.00 TALON Cont.VTI: 1.98 AI Pk Gaurav: 4.06 AI Mellette: 1.93 LVOT LVOT Pk Gaurav: 1.37 LVOT Mn Gaurav: 0.82 LVOT VTI: 0.28 LVOT Pk Grad: 8.00 LVOT Mn Grad: 3.00 LVOT Diam: 2.00 LVOT Area: 3.14 Diastolic Function MV Pk E: 0.49 MV Pk A: 0.77 E/A: 0.60 E'Medial: 5.44 E/E' Med: 9.10 E' Laterial: 9.03 E/E' Lat: 5.50 Right Ventricle TAPSE (mm): 26.30 TVS' Gaurav: 15.30 Tricuspid Valve TR Pk Gaurav: 2.09 TR Pk Grad: 17.00 RA Press: 8.00 RVSP: 25.00 Great Vessels Aorta Sinus of Valsalva: 3.37 2.0-3.[address] [place]: 2.71 1.7-3.4 cm Ao Asc: 3.30 2.1-3.4 cm Updated in Other Vendor System with Status of Final Brijesh Kang MD electronically signed on 12/04/2024 2:17:52 PM with status of Final
== END ==
LOC: HO.CARD 09:40
PROVIDERS: PCP Internal Medicine; Visit Provider Internal Medicine Cardiovascular Disease
DX: R06.02 Shortness of breath (principal)
CPT/HCPCS: 93306

== ENCOUNTER → 2024-12-03 09:47 | Outpatient (BNV) | payer MEDICARE, SELFPAY | PROVIDERS: PCP Internal Medicine; Visit Provider Internal Medicine Cardiovascular Disease | DX: I35.2 Nonrheumatic aortic (valve) stenosis with insufficiency (principal) | CPT/HCPCS: 93306 ==

== ENCOUNTER 2024-12-29 10:40 | Outpatient (AMB) | payer MEDICARE, SELFPAY ==
[2024-12-29 10:46] VITALS: BP 122/68; PULSE 64; BMI 28.7
--- NOTE | 2024-12-29 10:46 | A.OFFVIS_ITS ---
Vital Signs 12/29/24 10:46 Height 5 ft 1 in Weight 152 lb 1.903 oz BMI 28.7 BP 122/68 Blood Pressure Location Lt brachial Position Sitting Pulse 64 Pulse Source Monitor Intake Visit Reasons: 1 yr f/up per NS Allergies No Known Allergies Allergy (Verified 09/08/24 11:10) Medication List - Last Reconciled 12/29/24 by Brijesh Kang MD aspirin (Adult Aspirin Regimen) 81 mg PO DAILY atorvastatin 80 mg PO DAILY ezetimibe (Zetia) 10 mg PO DAILY finasteride 5 mg PO DAILY isosorbide mononitrate ER 30 mg PO DAILY lisinopril 10 mg PO DAILY metoprolol succinate ER 50 mg PO DAILY multivitamin 1 tab PO DAILY omeprazole 20 mg PO DAILY HPI Comments Details: Luc comes for follow-up. He has not had a stress test done as yet. Continues to have exertional shortness of breath. No exertional chest pain. No worsening of the symptoms. No heart failure symptoms. Echocardiogram showed normal LV ejection fraction without significant diastolic dysfunction with mild aortic stenosis. Taking all his medications regularly. Denies prolonged palpitation heartbeat [facility] Medical History Impaired fasting glucose Back pain BPH (benign prostatic hyperplasia) GERD (gastroesophageal reflux disease) Arthritis Hyperlipidemia HTN (hypertension) CAD (coronary artery disease) Surgical History History of excision of mass H/O colonoscopy Stented coronary artery Family History Father Cancer Mother Cancer Social History Are you a primary senior care provider to a significant other at home: No Do you presently have visiting nurse or other home services: No Patient Tobacco Use Status: Former Tobacco user Tobacco use type: Cigarette Current occupational status: retired Current occupation: 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 Review of Systems Const Denies weakness ENT Denies dizziness Card Denies chest pain, Denies chest pain with activity, Denies syncope, Denies rapid heart rate, Denies pedal edema, Denies edema, Denies leg edema, Denies lightheadedness, Denies palpitations, Denies dyspnea, Denies dyspnea on exertion and Denies orthopnea Resp Denies cough, Denies dyspnea and Denies dyspnea on exertion GI Denies hematochezia and Denies change in stool character Musc Denies abnormal gait, Denies muscle cramps, Denies muscle weakness, Denies numbness, Denies radiating pain into limb and Denies tingling Neuro Denies abnormal gait, Denies dizziness, Denies syncope, Denies numbness, Denies tingling and Denies weakness Endo Denies palpitations Physical Exam Vital Signs: Last Vital Signs Pulse 64 12/29/24 10:46 BP 122/68 12/29/24 10:46 BMI result Body Mass Index 28.7 Const General: cooperative, healthy appearing, comfortable and no acute distress Orientation/consciousness: patient oriented x3 Neck Neck: Yes normal visual inspection and Yes no JVD Resp Effort & Inspection: normal respiratory effort Auscultation: clear to auscultation bilaterally, no crackles, no rales, no rhonchi and no wheezes Cardio Jugular venous distension: no JVD Rate: regular rate Rhythm: regular rhythm Heart sounds: S1 normal heart sound present, S2 normal heart sound present, Murmur heart sound present systolic early, decrescendo and crescendo and no rubs Neuro General: patient oriented x3 Extrem General: Yes normal to inspection, No no pedal edema and No calf tenderness Psych Appearance: grossly normal Mental Status: mental status grossly normal Speech and movement: Normal speech and movement present Office Procedures EKG Details: EKG shows normal sinus rhythm with normal EKG [id number], Complete Assessment & Plan Assessment & Plan (1) SOB (shortness of breath) on exertion: Code(s): R06.02 - Shortness of breath Category: Medical Plan: Shortness of breath on exertion, still awaiting stress test. Further treatment based on the findings. If this is within normal limits would strongly suggest to follow up with Pulmonary function test. Echocardiogram does not show any significant evidence of significant structural cardiac issues causing his shortness of breath. Possible other etiologies include advancing age and deconditioning. Discussed with him to continue maintain activity level as tolerated. (2) CAD (coronary artery disease): Code(s): I25.10 - Atherosclerotic heart disease of douglas coronary artery without angina pectoris Category: Medical Plan: CAD with remote stenting of the RCA. No recurrent symptoms suggestive of angina but exertional shortness of breath. Myocardial perfusion imaging as above. Continue low-dose aspirin therapy for life. Continue aggressive blood pressure control which is currently well optimized. Continue high-intensity statin therapy with ezetimibe with target goal LDL closer to 55 mg/dL. Follow up in the clinic in 1 year's time, sooner p.r.n.. Thank you for allowing me to partake in his care Medications: Refilled ezetimibe (Zetia) This is for your cholesterol. Continue your atorvastatin along with this new med. 10 mg PO DAILY 30 tabs 6RF Coding Level of Care Code Est Pt Level 4 (83988) Complex EM visit Add On G2211 Diagnoses SOB (shortness of breath) on exertion R06.02 CAD (coronary artery disease) I25.10 CPT Codes EKG - CPT: [id number], Complete ([id number])
== END 2024-12-29 11:11 | disposition home or self-care (01) ==
PROVIDERS: PCP Internal Medicine; Visit Provider Internal Medicine Cardiovascular Disease
DX: R06.02 Shortness of breath (principal); I25.10 Atherosclerotic heart disease of native coronary artery without angina pectoris
CPT/HCPCS: 93010; 99214; G2211

== ENCOUNTER → 2024-12-29 10:40 | Outpatient (BNVA) | payer MEDICARE, SELFPAY | PROVIDERS: PCP Internal Medicine; Visit Provider Internal Medicine Cardiovascular Disease | DX: I25.10 Atherosclerotic heart disease of native coronary artery without angina pectoris (principal); R06.02 Shortness of breath | CPT/HCPCS: 93005; 99212 ==

== ENCOUNTER 2025-01-05 11:33 | Outpatient (REF) | payer MEDICARE, SELFPAY ==
--- NOTE | ~2025-01-05 | XR_ITS ---
EXAMINATION: XR SHOULDER, RIGHT CLINICAL INFORMATION: M25.511 - Pain in right shoulder COMPARISON: None available. TECHNIQUE: Two views of the right shoulder. FINDINGS: No acute cortical disruption or malalignment. Degenerative changes in the inferior margin of the right acromion. Subchondral cyst formation greater tuberosity right humerus and the inferior glenoid of the right scapula. XR/XR shoulder RT min 2V IMPRESSION: Osteoarthrosis without acute fracture or dislocation. Electronically signed by: Neftaly Chen MD 01/05/2025 03:52 PM ANITA THORNTON
== END 2025-01-05 11:34 | disposition home or self-care (01) ==
LOC: HO.HOSX 11:33
PROVIDERS: PCP Internal Medicine; Visit Provider Orthopaedic Surgery
DX: M25.511 Pain in right shoulder (principal); M25.811 Other specified joint disorders, right shoulder
CPT/HCPCS: 73030; 99212

== ENCOUNTER 2025-01-05 11:33 | Outpatient (AMB) | payer MEDICARE, SELFPAY ==
[2025-01-05 11:39] VITALS: BMI 28.7
--- NOTE | 2025-01-05 11:39 | A.OFFVIS_ITS ---
Vital Signs 01/05/25 11:39 Height 5 ft 1 in Weight 152 lb BMI 28.7 Intake Visit Reasons: Right shoulder pain Intake Note: Luc is an 79 year old male who presents with complaints of intermittent right shoulder pain. The patient states that he aggravated his right shoulder several weeks ago when he slipped while getting off of his couch. Reports mild weakness when lifting his right hand above shoulder height. He denies any numbness or tingling in either of his upper extremities. Allergies No Known Allergies Allergy (Verified 01/05/25 11:39) Medication List - Last Reconciled 01/05/25 by Wiliam Rowan MD aspirin (Adult Aspirin Regimen) 81 mg PO DAILY atorvastatin 80 mg PO DAILY ezetimibe (Zetia) 10 mg PO DAILY finasteride 5 mg PO DAILY isosorbide mononitrate ER 30 mg PO DAILY lisinopril 10 mg PO DAILY metoprolol succinate ER 50 mg PO DAILY multivitamin 1 tab PO DAILY omeprazole 20 mg PO DAILY [facility] Medical History Impaired fasting glucose Back pain BPH (benign prostatic hyperplasia) GERD (gastroesophageal reflux disease) Arthritis Hyperlipidemia HTN (hypertension) CAD (coronary artery disease) Surgical History History of excision of mass H/O colonoscopy Stented coronary artery Family History Father Cancer Mother Cancer Social History Are you a primary care attendant to a significant other at home: No Do you presently have visiting nurse or other home services: No Patient Tobacco Use Status: Former Tobacco user Tobacco use type: Cigarette Current occupational status: retired Current occupation: 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 Physical Exam Vital Signs: BMI result Body Mass Index 28.7 Const Other: Well-nourished well-developed very friendly male awake alert and oriented x3 in no acute distress Extrem Other: Right shoulder examination shows almost full range of motion when compared to his left shoulder, 4+ out of 5 strength with supraspinatus testing, positive impingement signs, tenderness over his acromioclavicular joint, no instability Results Reviewed Results Reviewed: X-rays of the patient's right shoulder show severe acromioclavicular joint narrowing, a type 3 acromion, no acute bony abnormalities Assessment & Plan Assessment & Plan (1) Right shoulder pain: Code(s): M25.511 - Pain in right shoulder Category: Medical Plan Mr. Boswell presents with right shoulder pain due to impingement syndrome. I had a lengthy discussion with the patient regarding the treatment options. We will hold off on a cortisone injection for now. I did give him a prescription for a Medrol Dosepak. He will continue with his range of motion exercises to prevent stiffness. He will contact me prior to his follow-up appointment in 6 weeks should any questions or concerns arise. Feel free to call me at any time should questions regarding his orthopedic management arise. I spent 21 minutes in reviewing the patient's records and imaging studies, seeing the patient and documenting in the medical record. Orders: Orders XR shoulder RT min 2V Today M25.511 - Pain in right shoulder Medications: New methylprednisolone (Medrol (Augie)) PO PER PKG DIR 21 ea 0RF Coding Level of Care Code Est Pt Level 3 (42490) Complex EM visit Add On G2211 Diagnoses Right shoulder pain M25.511
--- OUTSIDE RECORDS SUMMARY | 2025-01-05 13:24 | XMS_ITS | Clinical Summary ---
Author Organization [employer] 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 DX:Chronic bilateral low gabbi k pain without sciatica Type 2 diabetes mellitus (CMS/HCC) DX:Type 2 diabetes mellitus (HCC) Social History Tobacco Use Types Packs/Day Years Used Date Smoking Tobacco: Former Cigarettes Q uit: 12/01/1983 Smokeless Tobacco: Never Alcohol Use Standard Drinks/Week Comments Yes 1 (1 standard drink = 0.6 oz pur e alcohol) Sex and Gender Information Value Date Recorded Sex Assigned at Not on file Gender Identity Not on file Sexual Orientation Not on file Obstetrics History Last Filed Vital Signs Vital Sign Reading Time Taken Comments Blood Pressure - - Pulse - - Temperature - - Respiratory Rate - - Oxygen Saturation - - Inhaled Oxygen Concentration - - Weight 72.6 kg (160 lb) 07/07/2023 10:51 AM EDT Height 154.9 cm (5' 1 ) 07/07/2023 10:51 AM EDT Body Mass Index 30.23 07/07/2023 10:51 AM EDT Plan of Treatment Health Maintenance Due Date Last Done Comments Zoster Vaccines (1 of 2) 1993 Pneumococcal Vaccine: 65+ Years (1 of 1 - PCV) 2008 RSV Immunization Patients 60 + Years Old (1 - 1-dose 75+ series) 2018 Cholesterol Screening (Lipid Panel) 11/02/2022 Depression Screening 11/02/2022 Falls Risk Assessment 11/02/2022 Social Influencers of Health Screening 11/02/2022 COVID-19 Vaccine (1 - 2023-2 5 season) 2024 Influenza Vaccine (#1) 2024 9, 08/29/2018 DTaP,Tdap,and Td Vaccines (2 - Td or Tdap) 09/24/2029 09/24/2019 HIB Vaccines Aged Out No longer eligi ble based on patient's age to complete this topic HPV Vaccines Aged Out No longer eligi ble based on patient's age to complete this topic Hepatitis A Vaccines Aged Out No long er eligible based on patient's age to complete this topic Hepatitis B Vaccines Aged Out No long er eligible based on patient's age to complete this topic IPV Vaccines Aged Out No longer eligi ble based on patient's age to complete this topic MMR Vaccines Aged Out No longer eligi ble based on patient's age to complete this topic Meningococcal ACWY Vaccine Aged Out N o longer eligible based on patient's age to complete this topic RSV Immunization Patients Under 20 months Aged Out No longer eligible b ased on patient's age to complete this topic Varicella Vaccines Aged Out No longer eligible based on patient's age to complete this topic Care Teams Plant Electrical Engineer Relationship Specialty Start Date End Date Sam Pitts MD [address] [place] [address] PCP - General Internal Medicine 09/24/21
== END 2025-01-05 12:13 | disposition home or self-care (01) ==
PROVIDERS: PCP Internal Medicine; Visit Provider Orthopaedic Surgery
DX: M75.41 Impingement syndrome of right shoulder (principal)
CPT/HCPCS: 99213; G2211

== ENCOUNTER → 2025-01-05 11:53 | Outpatient (BNV) | payer MEDICARE, SELFPAY | PROVIDERS: PCP Internal Medicine; Visit Provider Radiology Diagnostic Radiology | DX: M19.011 Primary osteoarthritis, right shoulder (principal); M85.611 Other cyst of bone, right shoulder | CPT/HCPCS: 73030 ==

== ENCOUNTER → 2025-02-04 09:33 | Outpatient (REF) | payer MEDICARE, SELFPAY ==
--- NOTE | 2025-02-04 09:36 | CA_ITS ---
Acquisition Time: 2025-02-04 09:45:44 Total Exercise Time: 00:02:00 Test Indications: CAD,Dyspnea Medications: SEE H&P Protocol: LEXISCAN Max HR: 139 BPM 100% of Pred: 139 BPM Max BP: 136/48 mmHG Max Work Load: 1.0 METS Pharmacological stress test with Lexiscan while pt moved his left leg, with reports of SOB and abdominal discomfort, with very frequent PVCs, and one brief episode of SVT- 6 secs around a minute radha- asymptomatic, with normotensive response to exercise. Nondiagnostic EKG for ischemia. In recovery, pt treated with IVP Aminophylline 75 mg to reverse Lexiscan, after which pt feeling back to baseline. Nuclear images pending. Test reviewed with Dr. Kang. Referred By: Brijesh Kang Electronically Signed By: Brenton Mckeon
--- OUTSIDE RECORDS SUMMARY | 2025-02-04 10:22 | XMS_ITS | Encounter Summary ---
Author Organization [facility] Address [address] [place] [address] Care Team Providers Care Outbound Supervisor Name Role Phone Sam Pitts MD Primary Care Provider [phone] Reason for Visit * Reason Comments Fall Trip and fall in [facility], c/o bilateral knee and shoulder pain Encounter Details Date Type Department Care Team (Late st Contact Info) Description 01/14/2025 12:15 PM EST - 01/14/2025 3:18 PM EST Emergency [facility] Emergency [address] [place] [id number] Todd Linda MD [address] [place] [address] Fall, initial encounter (Primary Dx) Discharge Disposition: Home or Self Care Social History Tobacco Use Types Packs/Day Years Used Date Smoking Tobacco: Former Cigarettes Q uit: 12/01/1983 Smokeless Tobacco: Never Alcohol Use Standard Drinks/Week Comments Yes 1 (1 standard drink = 0.6 oz pur e alcohol) Sex and Gender Information Value Date Recorded Sex Assigned at Male 01/14/2025 3:05 PM EST Legal Sex Male 10:00 PM EST Gender Identity Male 01/14/2025 3:05 PM EST Sexual Orientation Straight 01/14/2025 3: 05 PM EST documented as of this encounter Last Filed Vital Signs Vital Sign Reading Time Taken Comments Blood Pressure 116/65 01/14/2025 3:01 PM EST Pulse 75 01/14/2025 3:01 PM EST Temperature 36.7 ??C (98 ??F) 01/14/2025 3:01 PM EST Respiratory Rate 16 01/14/2025 3:01 PM EST Oxygen Saturation 96% 01/14/2025 3:01 PM EST Inhaled Oxygen Concentration - - Weight 71.7 kg (158 lb) 01/14/2025 12:13 PM EST Height 154.9 cm (5' 1 ) 01/14/2025 12:13 PM EST Body Mass Index 29.85 01/14/2025 12:13 PM EST documented in this encounter Discharge Instructions * Discharge Instructions* Todd Linda MD - 01/14/2025 2:38 PM EST You were seen in the emergency department for your fall. We did do x-rays which did not show any acute fracture. We advise that you follow-up with your primary care doctor. Please return if your symptoms worsen. * Attachments The following attachments cannot be sent through Care Everywhere. * Fall Prevention (Hungarian) documented in this encounter Discharge Disposition Disposition Code Departure Means Destination Comment s Home or Self Care documented in this encounter Progress Notes * Mak Pandey RN - 01/14/2025 12:08 PM EST Pt comes in after mechanical fall on side walk. Pt reports the sidewalk was raised and he tripped landing mostly on his right side. Pt denies head strike, no LOC, no blood thinners. Pt complains mostly of right arm pain; also some left arm and right leg pain as well. * Todd Linda MD - 01/14/2025 11:46 AM EST HPI Chief Complaint Patient presents with Fall Trip and fall in parking lot, c/o bilateral knee and shoulder pain 79-year-old male with a past medical history as below now presents with a chief complaint of a fall. Patient reports that he was walking outside, had a mechanical slip and fall on ice and landed on his right side. He denies any head injury. He denies any loss of consciousness. Ever since the fall, he is complaining of right and left shoulder pain. He is also complaining of right arm pain. He denies any complaints of headache, neck pain, chest pain, shortness of breath, abdominal pain, nausea orany vomiting. He denies being on anticoagulation. He said he was ambulatory at scene. He denies anylower extremity pains. Past Medical History: No date: ASCVD (arteriosclerotic cardiovascular disease) Comment: DX:ASCVD (arteriosclerotic cardiovascular disease) No date: BPH (benign prostatic hyperplasia) Comment: DX:BPH (benign prostatic hyperplasia) No date: Chronic bilateral low back pain without sciatica Comment: DX:Chronic bilateral low back pain without sciatica No date: Esophageal reflux Comment: DX:Esophageal reflux No date: Essential hypertension Comment: DX:Essential hypertension No date: Hyperlipidemia Comment: DX:Hyperlipidemia No date: Type 2 diabetes mellitus (CMS/HCC) Comment: DX:Type 2 diabetes mellitus (HCC) History provided by: Patient No data recorded Patient History Past Medical History: Diagnosis Date ASCVD (arteriosclerotic cardiovascular disease) DX:ASCVD (arteriosclerotic cardiovascular disease) BPH (benign prostatic hyperplasia) DX:BPH (benign prostatic hyperplasia) Chronic bilateral low back pain without sciatica DX:Chronic bilateral low back pain without sciatica Esophageal reflux DX:Esophageal reflux Essential hypertension DX:Essential hypertension Hyperlipidemia DX:Hyperlipidemia Type 2 diabetes mellitus (CMS/HCC) DX:Type 2 diabetes mellitus ([facility]) Past Surgical History: Procedure Laterality Date CHOLECYSTECTOMY PROCEDURE: AL LAPAROSCOPY SURG CHOLECYSTECTOMY HAND SURGERY Right PROCEDURE: HISTORICAL HAND SURGERY; COMMENT: Long Finger repair, due to traumatic injury HERNIA REPAIR PROCEDURE: HISTORICAL HERNIA REPAIR/UMB KNEE ARTHROSCOPY Left 07/27/2020 PROCEDURE: AL ARTHROSCOPY AID TX SPINE&/FX KNEE W/O FIXJ; COMMENT: Partial Medial Meniscectomy,Dr. Esteves OTHER SURGICAL HISTORY PROCEDURE: AL PATIENT HAS A CORONARY ARTERY STENT; COMMENT: RCA No family history on file. Social History Tobacco Use Smoking status: Former Current packs/day: 0.00 Types: Cigarettes Quit date: 12/01/1983 Years since quittin.1 Smokeless tobacco: Never Substance Use Topics Alcohol use: Yes Alcohol/week: 1.0 standard drink of alcohol Drug use: Not on file Review of Systems Review of Systems Constitutional: Negative. HENT: Negative. Respiratory: Negative. Cardiovascular: Negative. Gastrointestinal: Negative. Musculoskeletal: Positive for arthralgias. Skin: Negative. Physical Exam ED Triage Vitals [01/14/25 1213] Temp Heart Rate Resp BP 36.7 ??C (98.1 ??F) 69 18 (!) 142/74 SpO2 Temp Source Heart Rate Source Patient Position 95 % Oral -- Sitting BP Location FiO2 (%) Left arm -- Physical Exam Constitutional: General: He is not in acute distress. Appearance: Normal appearance. He is not ill-appearing or toxic-appearing. HENT: Head: Normocephalic and atraumatic. Mouth/Throat: Mouth: Mucous membranes are moist. Eyes: Extraocular Movements: Extraocular movements intact. Conjunctiva/sclera: Conjunctivae normal. Neck: Comments: No midline spinal tenderness. Full range of motion intact. Cardiovascular: Rate and Rhythm: Normal rate and regular rhythm. Pulses: Normal pulses. Pulmonary: Effort: Pulmonary effort is normal. No respiratory distress. Breath sounds: Normal breath sounds. Abdominal: General: There is no distension. Palpations: Abdomen is soft. Tenderness: There is no abdominal tenderness. Musculoskeletal: General: Normal range of motion. Cervical back: Normal range of motion and neck supple. Right lower leg: No edema. Left lower leg: No edema. Comments: No midline spinal tenderness. No signs of trauma to the chest, back or the abdomen. No bony tenderness. Skin: General: Skin is warm. Capillary Refill: Capillary refill takes less than 2 seconds. Neurological: General: No focal deficit present. Mental Status: He is alert and oriented to person, place, and time. Mental status is at baseline. Cranial Nerves: No cranial nerve deficit. Sensory: No sensory deficit. Motor: No weakness. Coordination: Coordination normal. Gait: Gait normal. Comments: Ambulating with a steady baseline gait. Psychiatric: Mood and Affect: Mood normal. ED Course & MDM Clinical Impressions as of 01/17/25 1700 Fall, initial encounter Medical Decision Making 79-year-old male presents with a chief complaint of a fall onto the right side. This fall was purely mechanical. He is complaining of bilateral shoulder pain and right upper arm pain. His x-rays are unremarkable for any acute fractures. Basic labs were drawn which were unremarkable. There is no indication for CT imaging of the head given no trauma to the head, or imaging of the C-spine given thatthere was no neck tenderness and he did not have any trauma to those areas. There is no findings ofchest or the abdomen that would warrant CT imaging. Given this, plan is for discharge with follow-up primary care doctor. Patient was given strict return precautions. Patient ambulated with a baseline steady gait in the ER without any issues. Patient and understood and agreed with plan. Procedures Todd Linda MD 01/14/25 3208 Todd Linda MD 01/17/25 1394 documented in this encounter Plan of Treatment Not on file documented as of this encounter Procedures Procedure Name Priority Date/Time Associated Diagnosis Comments XR HUMERUS 2+ VIEWS RIGHT STAT 01/14/2025 1:31 PM EST XR SHOULDER 2+ VIEWS LEFT STAT 01/14/2025 1:31 PM EST XR CHEST 2 VIEWS STAT 01/14/2025 1:31 PM EST CBC WITH AUTO DIFFERENTIAL STAT 01/14/2025 12:27 PM EST CBC AND DIFFERENTIAL STAT 01/14/2025 12:27 PM EST BASIC METABOLIC PANEL STAT 01/14/2025 12:27 PM EST documented in this encounter Results * XR Humerus 2+ Views Right (01/14/2025 1:31 PM EST) Anatomical Region Laterality Modality Upper Extremities, Humerus Right Radio graphic Imaging 01/14/2025 1:52 PM EST Impressions 01/14/2025 1:53 PM EST FINDINGS/IMPRESSION: Three views of the humerus demonstrate no evidence for an acute fracture. ??Anatomic alignment. ??Degenerative changes of the shoulders and elbow. -------- FINAL REPORT -------- Dictated By: Nils Locke Dictated Date: 01/14/2025 13:52 ET Assigned Physician: Nils Locke Reviewed and Electronically Signed By: Nils Locke Signed Date: 01/14/2025 13:53 ET Workstation ID: [id number] Transcribed By: Self Edit Transcribed Date: 01/14/2025 13:52 ET Narrative 01/14/2025 1:53 PM EST XR HUMERUS 2+ VIEWS RIGHT INDICATION: pain TECHNIQUE: XR HUMERUS 2+ VIEWS RIGHT COMPARISON: No priors available. Procedure Note Nils Locke MD - 01/14/2025 XR HUMERUS 2+ VIEWS RIGHT INDICATION: pain TECHNIQUE: XR HUMERUS 2+ VIEWS RIGHT COMPARISON: No priors available. IMPRESSION: FINDINGS/IMPRESSION: Three views of the humerus demonstrate no evidencefor an acute fracture. Anatomic alignment. Degenerative changes of theshoulders and elbow. -------- FINAL REPORT -------- Dictated By: Nils Locke Dictated Date: 01/14/2025 13:52 ET Assigned Physician: Nils Locke Reviewed and Electronically Signed By: Nils Locke Signed Date: 01/14/2025 13:53 ET Workstation ID: [id number] Transcribed By: Self Edit Transcribed Date: 01/14/2025 13:52 ET Todd Linda MD IMG XR PROCEDURES Final Result * XR Chest 2 Views (01/14/2025 1:31 PM EST) Anatomical Region Laterality Modality Body Radiographic Charmaine ging 01/14/2025 1:58 PM EST Impressions 01/14/2025 1:59 PM EST FINDINGS/IMPRESSION: Hypoventilatory examination with persistent elevation of the right hemidiaphragm. ??No consolidation or effusion. ??No displaced fractures. ??Degenerative osseous changes. -------- FINAL REPORT -------- Dictated By: Nils Locke Dictated Date: 01/14/2025 13:58 ET Assigned Physician: Nils Locke Reviewed and Electronically Signed By: Nils Locke Signed Date: 01/14/2025 13:59 ET Workstation ID: [id number] Transcribed By: Self Edit Transcribed Date: 01/14/2025 13:58 ET Narrative 01/14/2025 1:59 PM EST XR CHEST 2 VIEWS INDICATION: pain TECHNIQUE: XR CHEST 2 VIEWS COMPARISON: 08/17/2024 Procedure Note Nils Locke MD - 01/14/2025 XR CHEST 2 VIEWS INDICATION: pain TECHNIQUE: XR CHEST 2 VIEWS COMPARISON: 08/17/2024 IMPRESSION: FINDINGS/IMPRESSION: Hypoventilatory examination with persistent elevationof the right hemidiaphragm. No consolidation or effusion. No displacedfractures. Degenerative osseous changes. -------- FINAL REPORT -------- Dictated By: Nils Locke Dictated Date: 01/14/2025 13:58 ET Assigned Physician: Nils Locke Reviewed and Electronically Signed By: Nils Locke Signed Date: 01/14/2025 13:59 ET Workstation ID: [id number] Transcribed By: Self Edit Transcribed Date: 01/14/2025 13:58 ET Todd Linda MD IMG XR PROCEDURES Final Result * XR Shoulder 2+ Views Left (01/14/2025 1:31 PM EST) Anatomical Region Laterality Modality Upper Extremities, Shoulder Left Radi ographic Imaging 01/14/2025 1:54 PM EST Impressions 01/14/2025 1:55 PM EST FINDINGS/IMPRESSION: Three views of the shoulder demonstrating no evidence for an acute fracture or dislocation. ??There are significant degenerative changes of the glenohumeral and acromioclavicular joints. -------- FINAL REPORT -------- Dictated By: Nils Locke Dictated Date: 01/14/2025 13:54 ET Assigned Physician: Nils Locke Reviewed and Electronically Signed By: Nils Locke Signed Date: 01/14/2025 13:55 ET Workstation ID: [id number] Transcribed By: Self Edit Transcribed Date: 01/14/2025 13:54 ET Narrative 01/14/2025 1:55 PM EST XR SHOULDER 2+ VIEWS LEFT INDICATION: shoulder pain TECHNIQUE: XR SHOULDER 2+ VIEWS LEFT COMPARISON: No priors available. Procedure Note Nils Locke MD - 01/14/2025 XR SHOULDER 2+ VIEWS LEFT INDICATION: shoulder pain TECHNIQUE: XR SHOULDER 2+ VIEWS LEFT COMPARISON: No priors available. IMPRESSION: FINDINGS/IMPRESSION: Three views of the shoulder demonstrating no evidencefor an acute fracture or dislocation. There are significant degenerativechanges of the glenohumeral and acromioclavicular joints. -------- FINAL REPORT -------- Dictated By: Nils Locke Dictated Date: 01/14/2025 13:54 ET Assigned Physician: Nils Locke Reviewed and Electronically Signed By: Nils Locke Signed Date: 01/14/2025 13:55 ET Workstation ID: [id number] Transcribed By: Self Edit Transcribed Date: 01/14/2025 13:54 ET us Toddyudi Linda MD IMG XR PROCEDURES Final Result * (ABNORMAL) CBC auto differential (01/14/2025 12:27 PM EST) WBC 8.4 4.8 - 10.8 K/mcL LAB HEMETOLOGY METHOD 01/14/2025 12:57 PM [facility] RBC 4.30(L) 4.50 - 5.50 M/mcL LAB HEMETOLOGY METHOD 01/14/2025 12:57 PM [facility] Hemoglobin 13.9 13.5 - 17.5 g/dL LAB HEMETOLOGY METHOD 01/14/2025 12:57 PM [facility] Hematocrit 40.9(L) 42.0 - 54.0 % LAB HEMETOLOGY METHOD 01/14/2025 12:57 PM [facility] MCV 96.2 79.0 - 98.0 FL LAB HEMETOLOGY METHOD 01/14/2025 12:57 PM [facility] MCH 32.7(H) 27.0 - 32.0 pcg LAB HEMETOLOGY METHOD 01/14/2025 12:57 PM [facility] MCHC 34.0 32.0 - 37.0 g/dL LAB HEMETOLOGY METHOD 01/14/2025 12:57 PM [facility] RDW 13.3 11.0 - 15.0 % LAB HEMETOLOGY METHOD 01/14/2025 12:57 PM [facility] Platelets 269 130 - 400 K/mcL LAB HEMETOLOGY METHOD 01/14/2025 12:57 PM [facility] MPV 9.3 7.0 - 11.0 FL LAB HEMETOLOGY METHOD 01/14/2025 12:57 PM [facility] NRBC 0.0 <1.0 % LAB HEMETOLOGY METHOD 01/14/2025 12:57 PM [facility] NRBC Absolute 0.00 <0.10 K/mcL LAB HEMETOLOGY METHOD 01/14/2025 12:57 PM [facility] Neutrophils Relative 65.8 % LAB HEMETOLOGY METHOD 01/14/2025 12:57 PM [facility] Lymphocytes Relative 18.8 % LAB HEMETOLOGY METHOD 01/14/2025 12:57 PM [facility] Monocytes Relative 13.3 % LAB HEMETOLOGY METHOD 01/14/2025 12:57 PM [facility] Eosinophils Relative 1.2 % LAB HEMETOLOGY METHOD 01/14/2025 12:57 PM [facility] Basophils Relative 0.2 % LAB HEMETOLOGY METHOD 01/14/2025 12:57 PM [facility] Immature Granulocytes Relative 0.7 % LAB HEMETOLOGY METHOD 01/14/2025 12:57 PM [facility] Neutrophils Absolute 5.51 1.50 - 7.00 K/mcL LAB HEMETOLOGY METHOD 01/14/2025 12:57 PM [facility] Lymphocytes Absolute 1.58 1.00 - 5.00 K/mcL LAB HEMETOLOGY METHOD 01/14/2025 12:57 PM [facility] Monocytes Absolute 1.12(H) 0.20 - 1.00 K/mcL LAB HEMETOLOGY METHOD 01/14/2025 12:57 PM EST [facility] Eosinophils Absolute 0.10 0.00 - 0.50 K/[facility] LAB HEMETOLOGY METHOD 01/14/2025 12:57 PM EST [facility] Basophils Absolute 0.02 0.00 - 0.20 K/[facility] LAB HEMETOLOGY METHOD 01/14/2025 12:57 PM [facility] Immature Granulocytes Absolute 0.06(H) 0.00 - 0.03 K/[facility] LAB HEMETOLOGY METHOD 01/14/2025 12:57 PM [facility] Blood Venous blood specimen / Unknown Venipuncture / Unknown 01/14/2025 12:27 PM EST 01/14/2025 12:52 PM EST Todd B Alexei [place] LAB BLOOD ORDERABLES Final Resu lt [facility] [address] [place] [address], * (ABNORMAL) Basic metabolic panel (01/14/2025 12:27 PM EST) Sodium 139 133 - 145 mmol/L LAB CHEMISTRY METHOD 01/14/2025 1:21 PM [facility] Potassium 4.2 3.5 - 5.5 mmol/L LAB CHEMISTRY METHOD 01/14/2025 1:21 PM [facility] Chloride 110 96 - 110 mmol/L LAB CHEMISTRY METHOD 01/14/2025 1:21 PM [facility] CO2 26 21 - 32 mmol/L LAB CHEMISTRY METHOD 01/14/2025 1:21 PM [facility] Anion Gap 3 3 - 11 LAB CHEMISTRY METHOD 01/14/2025 1:21 PM [facility] Glucose 106(H) 70 - 100 mg/dL LAB CHEMISTRY METHOD 01/14/2025 1:21 PM [facility] BUN 19 5 - 25 mg/dL LAB CHEMISTRY METHOD 01/14/2025 1:21 PM EST [facility] Creatinine 0.70 0.70 - 1.30 mg/dL LAB CHEMISTRY METHOD 01/14/2025 1:21 PM EST [facility] eGFR 93 >=60 mL/min/1. 73m2 LAB CHEMISTRY METHOD 01/14/2025 1:21 PM EST [facility] Comment:Calculation based on the??Chronic Kidney Disease Epidemiology Collaboration (CKD-EPI) equation refit??without adjustment for race. BUN/Creatinine Ratio 27.1 LAB CHEMISTRY METHOD 01/14/2025 1:21 PM EST [facility] Calcium 9.3 8.5 - 10.5 mg/dL LAB CHEMISTRY METHOD 01/14/2025 1:21 PM [facility] Blood Venous blood specimen / Unknown Venipuncture / Unknown 01/14/2025 12:27 PM EST 01/14/2025 12:52 PM EST us Todd Linda MD LAB BLOOD ORDERABLES Final Resu lt [facility] [address] [place] [address], documented in this encounter Visit Diagnoses Diagnosis Fall, initial encounter- Primary documented in this encounter Administered Medications Inactive Administered Medications - up to 3 most recent administrations Medication Order MAR Action Action Date Dose Rate Site acetaminophen (TYLENOL) tablet 1,000 mg 1,000 mg, oral, Once, On Fri01/14/25 at 1257, For 1 dose Given 01/14/2025 1:04 PM EST 1,000 mg ibuprofen (ADVIL,MOTRIN) tablet 600 mg 600 mg, oral, Once, On Fri01/14/25 at 1257, For 1 dose, Administer with food or milk to decrease GI upset Given 01/14/2025 1:04 PM EST 600 mg methocarbamoL (ROBAXIN) tablet 1,500 mg 1,500 mg, oral, Once, On Fri01/14/25 at 1257, For 1 dose Given 01/14/2025 1:04 PM EST 1,500 mg documented in this encounter Active and Recently Administered Medications Times are shown in EST. Scheduled Medication Order 01/12/2025 01/13/2025 01/14/2025 acetaminophen (TYLENOL) tablet 1,000 mg (COMPLETED) 1,000 mg, oral, Once, On Fri01/14/25 at 1257, For 1 dose 1304 (Given - Provid er: Sarahy Jacobs RN) ibuprofen (ADVIL,MOTRIN) tablet 600 mg (COMPLETED) 600 mg, oral, Once, On Fri01/14/25 at 1257, For 1 dose, Administer with food or milk to decrease GI upset 1304 (Given - Provid er: Sarahy Jacosb RN) methocarbamoL (ROBAXIN) tablet 1,500 mg (COMPLETED) 1,500 mg, oral, Once, On Fri01/14/25 at 1257, For 1 dose 1304 (Given - Provid er: Sarayh Jacobs RN) documented in this encounter Care Teams Outbound Supervisor Relationship Specialty Start Date End Date Sam Pitts MD [address] [place] [id number] PCP - General Internal Medicine 09/24/21 documented as of this encounter
--- OUTSIDE RECORDS SUMMARY | 2025-02-04 10:22 | XMS_ITS | Clinical Summary ---
Author Organization [facility] Address [address] [place] [address] Phone Care Team Providers Care Industrial Truck Mechanic Name Role Phone Sam Pitts MD Primary Care Provider Allergies No known active allergies Encounters Date Type Department Care Team Description 01/14/2025 12:15 PM EST - 01/14/2025 3:18 PM EST Emergency [facility] Emergency [address] [place] [address] Todd Linda MD Fall, initial encounter (Primary Dx) Discharge Disposition: Home or Self Care from Last 3 Months Surgical History Surgery Date Site/Laterality Comments CHOLECYSTECTOMY PROCEDURE: RI LAPAROSCOPY SURG CHOLECYSTECTOMY HERNIA REPAIR PROCEDURE: HISTORICAL HERNIA REPAIR/UMB KNEE ARTHROSCOPY 07/27/2020 Left PROCEDURE: RI ARTHROSCOPY AID [place] SPINE&/FX KNEE W/O FIXJ; COMMENT: Partial Medial Meniscectomy, Dr. Esteves HAND SURGERY Right PROCEDURE: HISTORICAL HAND SURGERY; COMMENT: Long Finger repair, due to traumatic injury OTHER SURGICAL HISTORY PROCEDURE: RI PATIENT HAS A CORONARY ARTERY STENT; COMMENT: [...] Orientation Straight 01/14/2025 3: 05 PM EST Obstetrics History Last Filed Vital Signs Vital [...] Mass Index 29.85 01/14/2025 12:13 PM EST Plan of Treatment Health Maintenance Due Date Last Done Comments Diabetes: Annual Foot Exam 1955 Diabetes: Annual Retina Eye Exam 1955 Zoster Vaccines (1 of 2) 1993 RSV Immunization Patients 60+ Years Old (1 - 1-dose 75+ series) 2018 Cholesterol Screening (Lipid Panel) 11/02/2022 Depression Screening 11/02/2022 Falls Risk Assessment 11/02/2022 Medicare Annual Wellness Visit 11/02/2022 Social Influencers of Health Screening 11/02/2022 Diabetes: Annual Urine Albumin-Creatinine Ratio (uACR) 01/14/2025 09/24/2019, 09/18/2018 Diabetes: Blood Sugar Control Test (HGBA1C) 01/14/2025 Diabetes: Annual GFR (Glomerular Filtration Rate) 01/14/2026 01/14/2025, 03/25/2024, 03/18/2018 Hypertension/CHF/CAD Annual BMP Blood Test 01/14/2026 01/14/2025, 03/25/2024, 03/18/2018 DTaP,Tdap,and Td Vaccines (2 - Td or Tdap) 09/24/2029 09/24/2019 Pneumococcal Vaccine: 50+ Years Completed 10/04/2022, 08/30/2015 Influenza Vaccine Completed 10/15/2024, , 09/05/2022, Additional history exists COVID-19 Vaccine Completed 10/18/2024, , 01/27/2022, Additional history exists HIB Vaccines Aged Out No longer eligi [...] patient's age to complete this topic Meningococcal B Vacine Aged Out No lo nger eligible based on patient's age to complete this topic RSV Immunization Patients Under 20 months Aged Out No longer eligible based on patient's age to complete this topic Varicella Vaccines Aged Out No longer eligible based on patient's age to complete this topic Procedures Procedure Name Priority Date/Time Associated Diagnosis Comments XR HUMERUS 2+ VIEWS RIGHT STAT 01/14/2025 1:31 PM EST XR CHEST 2 VIEWS STAT 01/14/2025 1:31 PM EST XR SHOULDER 2+ VIEWS LEFT STAT 01/14/2025 1:31 PM EST CBC WITH AUTO DIFFERENTIAL STAT 01/14/2025 12:27 PM EST BASIC METABOLIC PANEL STAT 01/14/2025 12:27 PM EST CBC AND DIFFERENTIAL STAT 01/14/2025 12:27 PM EST from Last 3 Months Results * XR Humerus 2+ Views Right [...] Signed Date: 01/14/2025 13:53 ET Workstation ID: [id number] Transcribed By: Self Edit Transcribed Date: 01/14/2025 [...] Signed Date: 01/14/2025 13:53 ET Workstation ID: [id number] Transcribed By: Self Edit Transcribed Date: 01/14/2025 [...] Signed Date: 01/14/2025 13:55 ET Workstation ID: [id number] Transcribed By: Self Edit Transcribed Date: 01/14/2025 [...] Signed Date: 01/14/2025 13:55 ET Workstation ID: [id number] Transcribed By: Self Edit Transcribed Date: 01/14/2025 13:54 ET Todd Dennis Linda MD IMG XR PROCEDURES Final Result [...] Signed Date: 01/14/2025 13:59 ET Workstation ID: [id number] Transcribed By: Self Edit Transcribed Date: 01/14/2025 [...] Signed Date: 01/14/2025 13:59 ET Workstation ID: [id number] Transcribed By: Self Edit Transcribed Date: 01/14/2025 13:58 ET Todd Linda MD IMG XR PROCEDURES Final Result * (ABNORMAL) CBC auto differential (01/14/2025 12:27 PM EST) WBC 8.4 4.8 - 10.8 K/mcL LAB HEMETOLOGY METHOD 01/14/2025 12:57 PM EST [facility] RBC 4.30(L) 4.50 - 5.50 M/mcL LAB HEMETOLOGY METHOD 01/14/2025 12:57 PM EST [facility] Hemoglobin 13.9 13.5 - 17.5 g/dL LAB HEMETOLOGY METHOD 01/14/2025 12:57 PM EST [facility] Hematocrit 40.9(L) 42.0 - 54.0 % LAB HEMETOLOGY METHOD 01/14/2025 12:57 PM [facility] MCV 96.2 79.0 - 98.0 FL LAB HEMETOLOGY METHOD 01/14/2025 12:57 PM [facility] MCH 32.7(H) 27.0 - 32.0 pcg LAB HEMETOLOGY METHOD 01/14/2025 12:57 PM [facility] MCHC 34.0 32.0 - 37.0 g/dL LAB HEMETOLOGY METHOD 01/14/2025 12:57 PM [facility] RDW 13.3 11.0 - 15.0 % LAB HEMETOLOGY METHOD 01/14/2025 12:57 PM [facility] Platelets 269 130 - 400 K/mcL LAB HEMETOLOGY METHOD 01/14/2025 12:57 PM [facility] MPV 9.3 7.0 - 11.0 FL LAB HEMETOLOGY METHOD 01/14/2025 12:57 PM [facility] NRBC 0.0 <1.0 % LAB HEMETOLOGY METHOD 01/14/2025 12:57 PM [facility] NRBC Absolute 0.00 <0.10 K/mcL LAB HEMETOLOGY METHOD 01/14/2025 12:57 PM [facility] Neutrophils Relative 65.8 % LAB HEMETOLOGY METHOD 01/14/2025 12:57 PM [facility] Lymphocytes Relative 18.8 % LAB HEMETOLOGY METHOD 01/14/2025 12:57 PM [facility] Monocytes Relative 13.3 % LAB HEMETOLOGY METHOD 01/14/2025 12:57 PM [facility] Eosinophils Relative 1.2 % LAB HEMETOLOGY METHOD 01/14/2025 12:57 PM [facility] Basophils Relative 0.2 % LAB HEMETOLOGY METHOD 01/14/2025 12:57 PM EST [facility] Immature Granulocytes Relative 0.7 % LAB HEMETOLOGY METHOD 01/14/2025 12:57 PM [facility] Neutrophils Absolute 5.51 1.50 - 7.00 K/mcL LAB HEMETOLOGY METHOD 01/14/2025 12:57 PM [facility] Lymphocytes Absolute 1.58 1.00 - 5.00 K/mcL LAB HEMETOLOGY METHOD 01/14/2025 12:57 PM [facility] Monocytes Absolute 1.12(H) 0.20 - 1.00 K/mcL LAB HEMETOLOGY METHOD 01/14/2025 12:57 PM [facility] Eosinophils Absolute 0.10 0.00 - 0.50 K/mcL LAB HEMETOLOGY METHOD 01/14/2025 12:57 PM [facility] Basophils Absolute 0.02 0.00 - 0.20 K/mcL LAB HEMETOLOGY METHOD 01/14/2025 12:57 PM [facility] Immature Granulocytes Absolute 0.06(H) 0.00 - 0.03 K/mcL LAB HEMETOLOGY METHOD 01/14/2025 12:57 PM [facility] Blood Venous blood specimen / Unknown Venipuncture / Unknown 01/14/2025 12:27 PM EST 01/14/2025 12:52 PM EST us Todd B Alexei [place] LAB BLOOD ORDERABLES Final Resu lt [facility] [address] [place] [address], * (ABNORMAL) Basic metabolic panel (01/14/2025 12:27 PM EST) Sodium 139 133 - 145 mmol/L LAB CHEMISTRY METHOD 01/14/2025 1:21 PM EST [facility] Potassium 4.2 3.5 - 5.5 mmol/L LAB CHEMISTRY METHOD 01/14/2025 1:21 PM [facility] Chloride 110 96 - 110 mmol/L LAB CHEMISTRY METHOD 01/14/2025 1:21 PM [facility] CO2 26 21 - 32 mmol/L LAB CHEMISTRY METHOD 01/14/2025 1:21 PM [facility] Anion Gap 3 3 - 11 LAB CHEMISTRY METHOD 01/14/2025 1:21 PM [facility] Glucose 106(H) 70 - 100 mg/dL LAB CHEMISTRY METHOD 01/14/2025 1:21 PM [facility] BUN 19 5 - 25 mg/dL LAB CHEMISTRY METHOD 01/14/2025 1:21 PM [facility] Creatinine 0.70 0.70 - 1.30 mg/dL LAB CHEMISTRY METHOD 01/14/2025 1:21 PM [facility] eGFR 93 >=60 mL/min/1. 73m2 LAB CHEMISTRY METHOD 01/14/2025 1:21 PM [facility] Comment:Calculation based on the??Chronic Kidney Disease Epidemiology Collaboration (CKD-EPI) equation refit??without adjustment for race. BUN/Creatinine Ratio 27.1 LAB CHEMISTRY METHOD 01/14/2025 1:21 PM [facility] Calcium 9.3 8.5 - 10.5 mg/dL LAB CHEMISTRY METHOD 01/14/2025 1:21 PM [facility] Blood Venous blood specimen / Unknown Venipuncture / Unknown 01/14/2025 12:27 PM EST 01/14/2025 12:52 PM EST us Todd Linda MD LAB BLOOD ORDERABLES Final Resu lt [facility] [address] [place] [address], [place] [phone] from Last 3 Months Insurance [employer] Care Teams Industrial Truck Mechanic Relationship Specialty Start Date End Date Sam Pitts MD [address] [place] [address] PCP - General Internal Medicine 09/24/21
== END ==
LOC: HO.CARD 09:33
PROVIDERS: PCP Internal Medicine; Visit Provider Internal Medicine Cardiovascular Disease
DX: R06.02 Shortness of breath (principal)
CPT/HCPCS: 93017; J0280; J2785

== ENCOUNTER → 2025-02-04 09:36 | Outpatient (BNV) | payer MEDICARE, SELFPAY | PROVIDERS: PCP Internal Medicine | DX: I25.5 Ischemic cardiomyopathy (principal); I25.10 Atherosclerotic heart disease of native coronary artery without angina pectoris; R06.02 Shortness of breath | CPT/HCPCS: 78452; 93016; 93018 ==

== ENCOUNTER 2025-02-23 10:36 | Outpatient (AMB) | payer MEDICARE, SELFPAY ==
--- NOTE | 2025-02-23 10:45 | MHC.OFFVIS ---
Vital Signs 02/23/25 10:53 Height 5 ft 1 in Weight 152 lb BMI 28.7 Intake Visit Reasons: Left knee pain Intake Note: Lcu is an 79 year old male who presents with complaints of left knee pain. He states that he got fairly good relief from the cortisone injection that he was given on 09/08/2024. His knee pain has returned. He states that he recently fell when he tripped over curb. He states that he aggravated his right shoulder pain and left knee pain during the fall. He denies any locking or giving way. He has tried Tylenol and aspirin which gave him only mild relief. Allergies No Known Allergies Allergy (Verified 02/23/25 10:53) Medication List - Last Reconciled 02/23/25 by Wiliam Rowan MD aspirin (Adult Aspirin Regimen) 81 mg PO DAILY atorvastatin 80 mg PO DAILY ezetimibe (Zetia) 10 mg PO DAILY finasteride 5 mg PO DAILY isosorbide mononitrate ER 30 mg PO DAILY lisinopril 10 mg PO DAILY methylprednisolone (Medrol (Augie)) PO PER PKG DIR metoprolol succinate ER 50 mg PO DAILY multivitamin 1 tab PO DAILY omeprazole 20 mg PO DAILY [facility] Medical History Impaired fasting glucose Back pain BPH (benign prostatic hyperplasia) GERD (gastroesophageal reflux disease) Arthritis Hyperlipidemia HTN (hypertension) CAD (coronary artery disease) Surgical History History of excision of mass H/O colonoscopy Stented coronary artery Family History Father Cancer Mother Cancer Social History Are you a primary college and career counselor to a significant other at home: No Do you presently have visiting nurse or other home services: No Patient Tobacco Use Status: Former Tobacco user Tobacco use type: Cigarette Current occupational status: retired Current occupation: 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 Physical Exam Vital Signs: BMI result Body Mass Index 28.7 Const Other: Well-nourished well-developed very friendly male awake alert and oriented x3 in no acute distress Extrem Other: Bilateral lower extremity examination shows good capillary refill, no skin lesions noted, normal sensation light touch Left knee examination shows a minimal effusion, palpable crepitus with range of motion, pain with range of motion, no instability Office Procedures AMB Joint Injection/Aspiration Joint Injection/Aspiration Primary Site: left knee Prep: site was prepped using aseptic technique Injected: 40 mg of, DepoMedrol and 1% plain lidocaine Procedure: The patient tolerated the procedure well Coding - Large joint Procedure code (CPT) selection complete Assessment & Plan Assessment & Plan (1) Arthritis of left knee: Code(s): M17.12 - Unilateral primary osteoarthritis, left knee Category: Medical (2) Left knee pain: Code(s): M25.562 - Pain in left knee Category: Medical Plan Mr. Boswell presents with left knee pain due to degenerative joint disease. The risks and benefits of a left knee cortisone injection were discussed at length with the patient. The patient wished to proceed. He tolerated the injection well. He will continue with his home exercise program. He will contact me prior to his follow-up appointment in 6 weeks should any questions or concerns arise. Feel free to call me at any time should questions regarding his orthopedic management arise. I spent 22 minutes in reviewing the patient's records and imaging studies, seeing the patient and documenting in the medical record. Orders: Orders AMB Joint Injection/Aspiration Today M17.12 - Unilateral primary osteoarthritis, left knee Coding Level of Care Code Est Pt Level 3 (79217) Complex EM visit Add On G2211 Diagnoses Arthritis of left knee M17.12 Left knee pain M25.562 CPT Codes Coding - Large joint: 19913 - Large joint ([id number])
[2025-02-23 10:53] VITALS: BMI 28.7
--- OUTSIDE RECORDS SUMMARY | 2025-02-23 12:30 | XMS_ITS | Clinical Summary ---
Author Organization [facility] Address [address] [place] [address] Phone Care Team Providers Care Instructional Interventionist Name Role Phone Sam Pitts MD Primary Care Provider Allergies No known active allergies Encounters Date Type Department Care Team Description 01/14/2025 12:15 PM EST - 01/14/2025 3:[address] [facility] Emergency [address] [place] [address] Todd Linda MD Fall, initial encounter (Primary Dx) Discharge Disposition: Home or Self Care from Last 3 Months Surgical History Surgery Date Site/Laterality Comments CHOLECYSTECTOMY PROCEDURE: CT LAPAROSCOPY SURG CHOLECYSTECTOMY HERNIA REPAIR PROCEDURE: HISTORICAL HERNIA REPAIR/UMB KNEE ARTHROSCOPY 07/27/2020 Left PROCEDURE: CT ARTHROSCOPY AID [place] SPINE&/FX KNEE W/O FIXJ; COMMENT: Partial Medial Meniscectomy, Dr. 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 DX:Chronic bilateral low gabbi k pain without sciatica Type 2 diabetes mellitus DX:Type 2 diabetes mellitus (HCC) Social History [...] Signed Date: 01/14/2025 13:53 ET Workstation ID: [id number] Transcribed By: Self Edit Transcribed Date: 01/14/2025 [...] Signed Date: 01/14/2025 13:53 ET Workstation ID: [id number] Transcribed By: Self Edit Transcribed Date: 01/14/2025 [...] Signed Date: 01/14/2025 13:55 ET Workstation ID: [id number] Transcribed By: Self Edit Transcribed Date: 01/14/2025 [...] Signed Date: 01/14/2025 13:55 ET Workstation ID: [id number] Transcribed By: Self Edit Transcribed Date: 01/14/2025 13:54 ET Todd Linda MD IMG XR PROCEDURES [...] Signed Date: 01/14/2025 13:59 ET Workstation ID: [id number] Transcribed By: Self Edit Transcribed Date: 01/14/2025 [...] Signed Date: 01/14/2025 13:59 ET Workstation ID: [id number] Transcribed By: Self Edit Transcribed Date: 01/14/2025 13:58 ET Todd Linda MD IMG XR PROCEDURES Final Result * (ABNORMAL) CBC auto differential (01/14/2025 12:27 PM EST) WBC 8.4 4.8 - 10.8 K/mcL LAB HEMETOLOGY METHOD 01/14/2025 12:57 PM EST [facility] RBC 4.30(L) 4.50 - 5.50 M/mcL LAB HEMETOLOGY METHOD 01/14/2025 12:57 PM EST [facility] Hemoglobin 13.9 13.5 - 17.5 g/dL LAB HEMETOLOGY METHOD 01/14/2025 12:57 PM EST [facility] Hematocrit 40.9(L) 42.0 - 54.0 % LAB HEMETOLOGY METHOD 01/14/2025 12:57 PM [facility] MCV 96.2 79.0 - 98.0 FL LAB HEMETOLOGY METHOD 01/14/2025 12:57 PM [facility] MCH 32.7(H) 27.0 - 32.0 pcg LAB HEMETOLOGY METHOD 01/14/2025 12:57 PM [facility] MCHC 34.0 32.0 - 37.0 g/dL LAB HEMETOLOGY METHOD 01/14/2025 12:57 PM [facility] RDW 13.3 11.0 - 15.0 % LAB HEMETOLOGY METHOD 01/14/2025 12:57 PM [facility] Platelets 269 130 - 400 K/mcL LAB HEMETOLOGY METHOD 01/14/2025 12:57 PM [facility] MPV 9.3 7.0 - 11.0 FL LAB HEMETOLOGY METHOD 01/14/2025 12:57 PM [facility] NRBC 0.0 <1.0 % LAB HEMETOLOGY METHOD 01/14/2025 12:57 PM [facility] NRBC Absolute 0.00 <0.10 K/mcL LAB HEMETOLOGY METHOD 01/14/2025 12:57 PM [facility] Neutrophils Relative 65.8 % LAB HEMETOLOGY METHOD 01/14/2025 12:57 PM [facility] Lymphocytes Relative 18.8 % LAB HEMETOLOGY METHOD 01/14/2025 12:57 PM [facility] Monocytes Relative 13.3 % LAB HEMETOLOGY METHOD 01/14/2025 12:57 PM [facility] Eosinophils Relative 1.2 % LAB HEMETOLOGY METHOD 01/14/2025 12:57 PM [facility] Basophils Relative 0.2 % LAB HEMETOLOGY METHOD 01/14/2025 12:57 PM EST [facility] Immature Granulocytes Relative 0.7 % LAB HEMETOLOGY METHOD 01/14/2025 12:57 PM [facility] Neutrophils Absolute 5.51 1.50 - 7.00 K/[facility] LAB HEMETOLOGY METHOD 01/14/2025 12:57 PM [facility] Lymphocytes Absolute 1.58 1.00 - 5.00 K/mcL LAB HEMETOLOGY METHOD 01/14/2025 12:57 PM [facility] Monocytes Absolute 1.12(H) 0.20 - 1.00 K/mcL LAB HEMETOLOGY METHOD 01/14/2025 12:57 PM [facility] Eosinophils Absolute 0.10 0.00 - 0.50 K/[facility] LAB HEMETOLOGY METHOD 01/14/2025 12:57 PM [facility] Basophils Absolute 0.02 0.00 - 0.20 K/mcL LAB HEMETOLOGY METHOD 01/14/2025 12:57 PM [facility] Immature Granulocytes Absolute 0.06(H) 0.00 - 0.03 K/mcL LAB HEMETOLOGY METHOD 01/14/2025 12:57 PM [facility] Blood Venous blood specimen / Unknown Venipuncture / Unknown 01/14/2025 12:27 PM EST 01/14/2025 12:52 PM EST us Todd Linda MD LAB BLOOD ORDERABLES Final Resu lt [facility] [address] [place] [address], * (ABNORMAL) Basic metabolic panel (01/14/2025 12:27 PM EST) Sodium 139 133 - 145 mmol/L LAB CHEMISTRY METHOD 01/14/2025 1:21 PM EST [facility] Potassium 4.2 3.5 - 5.5 mmol/L LAB CHEMISTRY METHOD 01/14/2025 1:21 PM [facility] Chloride 110 96 - 110 mmol/L LAB CHEMISTRY METHOD 01/14/2025 1:21 PM [facility] CO2 26 21 - 32 mmol/L LAB CHEMISTRY METHOD 01/14/2025 1:21 PM [facility] Anion Gap 3 3 - 11 LAB CHEMISTRY METHOD 01/14/2025 1:21 PM [facility] Glucose 106(H) 70 - 100 mg/dL LAB CHEMISTRY METHOD 01/14/2025 1:21 PM [facility] BUN 19 5 - 25 mg/dL LAB CHEMISTRY METHOD 01/14/2025 1:21 PM [facility] Creatinine 0.70 0.70 - 1.30 mg/dL LAB CHEMISTRY METHOD 01/14/2025 1:21 PM [facility] eGFR 93 >=60 mL/min/1. 73m2 LAB CHEMISTRY METHOD 01/14/2025 1:21 PM [facility] Comment:Calculation based on the??Chronic Kidney Disease Epidemiology Collaboration (CKD-EPI) equation refit??without adjustment for race. BUN/Creatinine Ratio 27.1 LAB CHEMISTRY METHOD 01/14/2025 1:21 PM [facility] Calcium 9.3 8.5 - 10.5 mg/dL LAB CHEMISTRY METHOD 01/14/2025 1:21 PM [facility] Blood Venous blood specimen / Unknown Venipuncture / Unknown 01/14/2025 12:27 PM EST 01/14/2025 12:52 PM EST us Todd Linda MD LAB BLOOD ORDERABLES Final Resu lt [facility] [address] [place] [address], [place] [phone] from Last 3 Months Insurance [employer] Care Teams Instructional Interventionist Relationship Specialty Start Date End Date Sam Pitts MD [address] [place] [address] PCP - General Internal Medicine 09/24/21
== END 2025-02-23 11:11 | disposition home or self-care (01) ==
LOC: HO.HOS 10:37
PROVIDERS: PCP Internal Medicine; Visit Provider Orthopaedic Surgery
DX: M17.12 Unilateral primary osteoarthritis, left knee (principal)
CPT/HCPCS: 20610; 99213

== ENCOUNTER → 2025-02-23 10:36 | Outpatient (BNVA) | payer MEDICARE, SELFPAY | PROVIDERS: PCP Internal Medicine; Visit Provider Orthopaedic Surgery | DX: M17.12 Unilateral primary osteoarthritis, left knee (principal); M25.562 Pain in left knee | CPT/HCPCS: 20610; 99212; J1010; J2003 ==

== ENCOUNTER 2025-04-06 10:15 | Outpatient (REF) | payer MEDICARE, SELFPAY ==
[2025-04-06 10:28] LABS: MANUAL DIFF FLAG NO
--- OUTSIDE RECORDS SUMMARY | 2025-04-06 11:30 | XMS_ITS | Clinical Summary ---
Author Organization [facility] Address [address] [place] [address] Phone Care Team Providers Care Direct Support Professional Name Role Phone Sam Pitts MD Primary Care Provider Allergies No known active allergies Encounters Date Type Department Care Team Description 01/14/2025 12:15 PM EST - 01/14/2025 3:18 PM EST Emergency [facility] Emergency [address] [place] [address] Todd Linda MD Fall, initial encounter (Primary Dx) Discharge Disposition: Home or Self Care from Last 3 Months Surgical History Surgery Date Site/Laterality Comments CHOLECYSTECTOMY PROCEDURE: [place] LAPAROSCOPY SURG CHOLECYSTECTOMY HERNIA REPAIR PROCEDURE: HISTORICAL HERNIA REPAIR/UMB KNEE ARTHROSCOPY 07/27/2020 Left PROCEDURE: [place] ARTHROSCOPY AID [place] SPINE&/FX KNEE W/O FIXJ; COMMENT: Partial Medial Meniscectomy, Dr. Esteves HAND SURGERY Right PROCEDURE: HISTORICAL HAND SURGERY; COMMENT: Long Finger repair, due to traumatic injury OTHER SURGICAL HISTORY PROCEDURE: [place] PATIENT HAS A CORONARY ARTERY STENT; COMMENT: RCA Medical History Medical History Date Comments Hyperlipidemia DX:Hyperlipidemi a Essential hypertension DX:Essent ial hypertension Esophageal reflux DX:Esophageal reflux BPH (benign prostatic hyperplasia) DX:BPH (benign prostatic hyperplasia) ASCVD (arteriosclerotic card iovascular disease) DX:ASCVD (arteriosclerotic cardiovascular disease) Chronic bilateral low back p ain without sciatica DX:Chronic bilateral low gabbi k pain without sciatica Type 2 diabetes mellitus (CM S/HCC V24, CMS/HCC V28) DX:Type 2 diabetes mellitus (HCC) Social History [...] Vaccines (1 of 2) 1993 RSV Immunization Adult Patients (1 - 1-dose 75+ series) 2018 Cholesterol Screening (Lipid Panel) 11/02/2022 Depression Screening 11/02/2022 Falls Risk Assessment 11/02/2022 Medicare Annual Wellness Visit 11/02/2022 Social Influencers of Health Screening 11/02/2022 Diabetes: Annual Urine Albumin-Creatinine Ratio (uACR) 01/14/2025 09/24/2019, 09/18/2018 Diabetes: Blood Sugar Control Test (HGBA1C) 01/14/2025 COVID-19 Vaccine ( season) 2025 10/18/2024, 08/16/2023, 01/27/2022, Additional history exists Diabetes: Annual GFR (Glomerular Filtration Rate) 01/14/2026 01/14/2025, 03/25/2024, 03/18/2018 Hypertension/CHF/CAD Annual BMP Blood Test 01/14/2026 01/14/2025, 03/25/2024, 03/18/2018 DTaP,Tdap,and Td Vaccines (2 - Td or Tdap) 09/24/2029 09/24/2019 Pneumococcal Vaccine: 50+ Years Completed 10/04/2022, 08/30/2015 Influenza Vaccine Completed 10/15/2024, , 09/05/2022, Additional history exists HIB Vaccines Aged Out [...] age to complete this topic Meningococcal B Vaccine Aged Out No l onger eligible based on patient's age to complete [...] Signed Date: 01/14/2025 13:53 ET Workstation ID: [id number] Transcribed By: Self Edit Transcribed Date: 01/14/2025 13:52 ET Narrative 01/14/2025 1:53 PM EST XR HUMERUS 2+ VIEWS RIGHT INDICATION: pain TECHNIQUE: XR HUMERUS 2+ VIEWS RIGHT COMPARISON: No priors available. Procedure Note Nils Locek MD - 01/14/2025 XR HUMERUS 2+ VIEWS [...] Signed Date: 01/14/2025 13:53 ET Workstation ID: [id number] Transcribed By: Self Edit Transcribed Date: 01/14/2025 [...] Signed Date: 01/14/2025 13:55 ET Workstation ID: [id number] Transcribed By: Self Edit Transcribed Date: 01/14/2025 [...] Signed Date: 01/14/2025 13:55 ET Workstation ID: [id number] Transcribed By: Self Edit Transcribed Date: 01/14/2025 [...] Signed Date: 01/14/2025 13:59 ET Workstation ID: [id number] Transcribed By: Self Edit Transcribed Date: 01/14/2025 [...] Signed Date: 01/14/2025 13:59 ET Workstation ID: [id number] Transcribed By: Self Edit Transcribed Date: 01/14/2025 13:58 ET Todd Linda MD IMG XR PROCEDURES Final Result * (ABNORMAL) CBC auto differential (01/14/2025 12:27 PM EST) WBC 8.4 4.8 - 10.8 K/mcL LAB HEMETOLOGY METHOD 01/14/2025 12:[address] [facility] RBC 4.30(L) 4.50 - 5.50 M/mcL LAB HEMETOLOGY METHOD 01/14/2025 12:[address] [facility] Hemoglobin 13.9 13.5 - 17.5 g/dL LAB HEMETOLOGY METHOD 01/14/2025 12:[address] [facility] Hematocrit 40.9(L) 42.0 - 54.0 % LAB HEMETOLOGY METHOD 01/14/2025 12:57 PM [facility] MCV 96.2 79.0 - 98.0 FL LAB HEMETOLOGY METHOD 01/14/2025 12:57 PM [facility] MCH 32.7(H) 27.0 - 32.0 pcg LAB HEMETOLOGY METHOD 01/14/2025 12:57 PM [facility] MCHC 34.0 32.0 - 37.0 g/dL LAB HEMETOLOGY METHOD 01/14/2025 12:57 PM [facility] RDW 13.3 11.0 - 15.0 % LAB HEMETOLOGY METHOD 01/14/2025 12:57 PM [facility] Platelets 269 130 - 400 K/mcL LAB HEMETOLOGY METHOD 01/14/2025 12:57 PM [facility] MPV 9.3 7.0 - 11.0 FL LAB HEMETOLOGY METHOD 01/14/2025 12:57 PM [facility] NRBC 0.0 <1.0 % LAB HEMETOLOGY METHOD 01/14/2025 12:57 PM [facility] NRBC Absolute 0.00 <0.10 K/mcL LAB HEMETOLOGY METHOD 01/14/2025 12:57 PM [facility] Neutrophils Relative 65.8 % LAB HEMETOLOGY METHOD 01/14/2025 12:57 PM [facility] Lymphocytes Relative 18.8 % LAB HEMETOLOGY METHOD 01/14/2025 12:57 PM [facility] Monocytes Relative 13.3 % LAB HEMETOLOGY METHOD 01/14/2025 12:57 PM [facility] Eosinophils Relative 1.2 % LAB HEMETOLOGY METHOD 01/14/2025 12:57 PM [facility] Basophils Relative 0.2 % LAB HEMETOLOGY METHOD 01/14/2025 12:[address] [facility] Immature Granulocytes Relative 0.7 % LAB HEMETOLOGY METHOD 01/14/2025 12:57 PM [facility] Neutrophils Absolute 5.51 1.50 - 7.00 K/mcL LAB HEMETOLOGY METHOD 01/14/2025 12:57 PM [facility] Lymphocytes Absolute 1.58 1.00 - 5.00 K/mcL LAB HEMETOLOGY METHOD 01/14/2025 12:57 PM [facility] Monocytes Absolute 1.12(H) 0.20 - 1.00 K/mcL LAB HEMETOLOGY METHOD 01/14/2025 12:57 PM [facility] Eosinophils Absolute 0.10 0.00 - 0.50 K/mcL LAB HEMETOLOGY METHOD 01/14/2025 12:57 PM [facility] Basophils Absolute 0.02 0.00 - 0.20 K/mcL LAB HEMETOLOGY METHOD 01/14/2025 12:[address] [facility] Immature Granulocytes Absolute 0.06(H) 0.00 - 0.03 K/mcL LAB HEMETOLOGY METHOD 01/14/2025 12:57 PM [facility] Blood Venous blood specimen / Unknown Venipuncture / Unknown 01/14/2025 12:27 PM EST 01/14/2025 12:52 PM EST us Todd Linda MD LAB BLOOD ORDERABLES Final Resu lt [facility] [address] [place] [address], * (ABNORMAL) Basic metabolic panel (01/14/2025 12:27 PM EST) Sodium 139 133 - 145 mmol/L LAB CHEMISTRY METHOD 01/14/2025 1:21 PM [facility] Potassium 4.2 3.5 - 5.5 mmol/L LAB CHEMISTRY METHOD 01/14/2025 1:21 PM [facility] Chloride 110 96 - 110 mmol/L LAB CHEMISTRY METHOD 01/14/2025 1:21 PM [facility] CO2 26 21 - 32 mmol/L LAB CHEMISTRY METHOD 01/14/2025 1:21 PM [facility] Anion Gap 3 3 - 11 LAB CHEMISTRY METHOD 01/14/2025 1:21 PM [facility] Glucose 106(H) 70 - 100 mg/dL LAB CHEMISTRY METHOD 01/14/2025 1:21 PM [facility] BUN 19 5 - 25 mg/dL LAB CHEMISTRY METHOD 01/14/2025 1:21 PM [facility] Creatinine 0.70 0.70 - 1.30 mg/dL LAB CHEMISTRY METHOD 01/14/2025 1:21 PM [facility] eGFR 93 >=60 mL/min/1. 73m2 LAB CHEMISTRY METHOD 01/14/2025 1:21 PM [facility] Comment:Calculation based on the??Chronic Kidney Disease Epidemiology Collaboration (CKD-EPI) equation refit??without adjustment for race. BUN/Creatinine Ratio 27.1 LAB CHEMISTRY METHOD 01/14/2025 1:21 PM [facility] Calcium 9.3 8.5 - 10.5 mg/dL LAB CHEMISTRY METHOD 01/14/2025 1:21 PM [facility] Blood Venous blood specimen / Unknown Venipuncture / Unknown 01/14/2025 12:27 PM EST 01/14/2025 12:52 PM EST us Todd Linda MD LAB BLOOD ORDERABLES Final Resu lt [facility] [address] [place] [address], from Last 3 Months Insurance [employer] Care Teams Direct Support Professional Relationship Specialty Start Date End Date Sam Pitts MD [address] [place] [id number] PCP - General Internal Medicine 09/24/21
[2025-04-06 11:51] LABS: Basophils Percent Auto 0.1 % (0-2); Eosinophils Absolute Auto 0.1 X10*3/uL (0.0-0.4); Eosinophils Percent Auto 1.8 % (0-4); Hematocrit 41.5 % (42.0-52.0); Hemoglobin 14.7 g/dl (14.0-18.0); Imm Gran Abs Auto 0.03 X10*3/uL (0.00-0.03); Imm Gran Pct Auto 0.4 % (0.0-0.4); Lymphocytes Absolute Auto 1.6 X10*3/uL (1.2-4.9); Lymphocytes Percent Auto 23.1 % (20-40); Mean Corpuscular HGB Conc 35.4 g/dl (31.0-36.0); Mean Corpuscular Hemoglobin 33.4 pg (27.0-33.0); Mean Corpuscular Volume 94.3 fL (80.0-98.0); Mean Platelet Volume 9.7 fL (9.4-12.4); Monocytes Absolute Auto 0.7 X10*3/uL (0.1-1.2); Monocytes Percent Auto 9.3 % (2-11); Neutrophils Absolute Auto 4.6 x10*3/uL (2.0-8.3); Neutrophils Percent Auto 65.3 % (45-73); Platelet Count 247 X10*3/uL (160-400); Red Cell Distribution Width 13.2 % (11.0-16.0); White Blood Count 7.1 X10*3/uL (4.8-10.8)
[2025-04-06 12:03] LABS: Estimated Average Glucose 131 mg/dL; Hemoglobin A1C 171.1176 umol/L; Hemoglobin A1c % 6.2 % (<6.0); Total Hemoglobin (HGBA1C) 3895.5361 umol/L
[2025-04-06 12:41] LABS: Alanine Aminotransferase 18 U/L (0-40); Albumin Level 4.3 g/dL (3.5-5.0); Alkaline Phosphatase 107 U/L (39-117); Anion Gap 11 (12-20); Aspartate Amino Transferase 20 U/L (5-37); Bilirubin Total 0.7 mg/dL (0.0-1.0); Blood Urea Nitrogen 19 mg/dL (9-16); Calcium 9.6 mg/dL (8.4-10.2); Carbon Dioxide 28 mmol/L (22-29); Chloride 107 mmol/L (96-108); Cholesterol 102 mg/dL (<200); Estimated Glomerular Filt Rate > 60; Glucose Random 119 mg/dL (60-115); HDL Cholesterol 41 mg/dL (>40); LDL Cholesterol Calculated 45 mg/dL (<100); Potassium 4.5 mmol/L (3.3-5.1); Sodium 141 mmol/L (135-145); Total Protein 6.7 g/dL (6.5-8.0); Triglycerides 84 mg/dL (<150)
[2025-04-06 12:44] LABS: Thyroid Stimulating Hormone 1.24 uIU/mL (0.32-4.0)
[2025-04-06 12:45] LABS: Creatinine Urine 69.11 mg/dL; Microalbum/Creatinine Ratio Ur 27.4 ug/mg cr (<30)
== END 2025-04-06 10:16 | disposition home or self-care (01) ==
LOC: HO.LAB 10:15
PROVIDERS: PCP Internal Medicine; Visit Provider Internal Medicine
DX: I10 Essential (primary) hypertension (principal); R73.01 Impaired fasting glucose; I25.10 Atherosclerotic heart disease of native coronary artery without angina pectoris; M25.811 Other specified joint disorders, right shoulder; M25.511 Pain in right shoulder; Z95.5 Presence of coronary angioplasty implant and graft
CPT/HCPCS: 20610; 36415; 80053; 80061; 82043; 82570; 83036; 84443; 85025; 99212; J1010; J2003

== ENCOUNTER 2025-04-06 10:40 | Outpatient (AMB) | payer MEDICARE, SELFPAY ==
--- NOTE | 2025-04-06 11:08 | A.OFFVIS_ITS ---
Vital Signs 04/06/25 11:10 Height 5 ft 1 in Weight 152 lb BMI 28.7 Intake Visit Reasons: Right shoulder pain Intake Note: Luc is an 79 year old left hand dominant male who presents with complaints of right shoulder pain. He describes his pain as sharp in nature. His pain has gotten worse over the last few months in spite of continued non operative treatments. He has tried Tylenol which gives him only mild relief. He denies any weakness. Allergies No Known Allergies Allergy (Verified 02/23/25 10:53) Medication List - Last Reconciled 04/06/25 by Wiliam Rowan MD aspirin (Adult Aspirin Regimen) 81 mg PO DAILY atorvastatin 80 mg PO DAILY ezetimibe (Zetia) 10 mg PO DAILY finasteride 5 mg PO DAILY isosorbide mononitrate ER 30 mg PO DAILY lisinopril 10 mg PO DAILY methylprednisolone (Medrol (Augie)) PO PER PKG DIR metoprolol succinate ER 50 mg PO DAILY multivitamin 1 tab PO DAILY omeprazole 20 mg PO DAILY PFSH Medical History Impaired fasting glucose Back pain BPH (benign prostatic hyperplasia) GERD (gastroesophageal reflux disease) Arthritis Hyperlipidemia HTN (hypertension) CAD (coronary artery disease) Surgical History History of excision of mass H/O colonoscopy Stented coronary artery Family History Father Cancer Mother Cancer Social History Are you a primary transition of care specialist to a significant other at home: No Do you presently have visiting nurse or other home services: No Patient Tobacco Use Status: Former Tobacco user Tobacco use type: Cigarette Current occupational status: retired Current occupation: 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 Physical Exam Vital Signs: BMI result Body Mass Index 28.7 Const Other: Well-nourished well-developed very friendly male awake alert and oriented x3 in no acute distress Extrem Other: Bilateral upper extremity examination shows good capillary refill, no skin lesions noted, normal sensation light touch Right shoulder examination shows slightly decreased range of motion when compared to his left shoulder, 4+ out of 5 strength with supraspinatus testing, positive impingement signs, no instability Office Procedures AMB Joint Injection/Aspiration Joint Injection/Aspiration Primary Site: right shoulder Prep: site was prepped using aseptic technique Injected: 40 mg of, DepoMedrol and 1% plain lidocaine Procedure: The patient tolerated the procedure well Coding - Large joint Procedure code (CPT) selection complete Assessment & Plan Assessment & Plan (1) Impingement of right shoulder: Code(s): M25.811 - Other specified joint disorders, right shoulder Category: Medical (2) Right shoulder pain: Code(s): M25.511 - Pain in right shoulder Category: Medical Plan Mr. Boswell presents with right shoulder pain due to impingement syndrome. The risks and benefits of a right shoulder cortisone injection were discussed at length with the patient. The patient wished to proceed. Tolerated the injection well. I also gave him a prescription for meloxicam. He will continue with his home stretching program. He will contact me prior to his follow-up appointment in 3 months should any questions or concerns arise. Feel free to call me at any time should questions regarding his orthopedic management arise. I spent 21 minutes in reviewing the patient's records and imaging studies, seeing the patient and documenting in the medical record. Orders: Orders AMB Joint Injection/Aspiration Today M25.811 - Other specified joint disorders, right shoulder Medications: New meloxicam 15 mg PO DAILY PRN 30 tabs 3RF pain Coding Level of Care Code Est Pt Level 3 (26457) Complex EM visit Add On G2211 Diagnoses Impingement of right shoulder M25.811 Right shoulder pain M25.511 CPT Codes Coding - Large joint: - Large joint ([id number])
[2025-04-06 11:10] VITALS: BMI 28.7
--- OUTSIDE RECORDS SUMMARY | 2025-04-06 11:56 | XMS_ITS | Clinical Summary ---
Author Organization [facility] Address [address] [place] [address] Phone Care Team Providers Care Face Worker Name Role Phone Sam Pitts MD Primary Care Provider Allergies No known active allergies Encounters Date Type Department Care Team Description 01/14/2025 12:15 PM EST - 01/14/2025 3:18 PM EST Emergency [facility] Emergency [address] [place] [address] Todd Linda MD Fall, initial encounter (Primary Dx) Discharge Disposition: Home or Self Care from Last 3 Months Surgical History Surgery Date Site/Laterality Comments CHOLECYSTECTOMY PROCEDURE: [place] LAPAROSCOPY SURG CHOLECYSTECTOMY HERNIA REPAIR PROCEDURE: HISTORICAL HERNIA REPAIR/UMB KNEE ARTHROSCOPY 07/27/2020 Left PROCEDURE: [place] ARTHROSCOPY AID [place] SPINE&/FX KNEE W/O FIXJ; COMMENT: Partial Medial Meniscectomy, Dr. Esteves HAND SURGERY Right PROCEDURE: HISTORICAL HAND SURGERY; COMMENT: Long Finger repair, due to traumatic injury OTHER SURGICAL HISTORY PROCEDURE: [place] PATIENT HAS A CORONARY ARTERY STENT; COMMENT: [...] Signed Date: 01/14/2025 13:53 ET Workstation ID: [id number] Transcribed By: Self Edit Transcribed Date: 01/14/2025 [...] Signed Date: 01/14/2025 13:53 ET Workstation ID: [id number] Transcribed By: Self Edit Transcribed Date: 01/14/2025 [...] Signed Date: 01/14/2025 13:55 ET Workstation ID: [id number] Transcribed By: Self Edit Transcribed Date: 01/14/2025 [...] Signed Date: 01/14/2025 13:55 ET Workstation ID: [id number] Transcribed By: Self Edit Transcribed Date: 01/14/2025 [...] Signed Date: 01/14/2025 13:59 ET Workstation ID: [id number] Transcribed By: Self Edit Transcribed Date: 01/14/2025 [...] Signed Date: 01/14/2025 13:59 ET Workstation ID: [id number] Transcribed By: Self Edit Transcribed Date: 01/14/2025 13:58 ET Todd Linda MD IMG XR PROCEDURES Final Result * (ABNORMAL) CBC auto differential (01/14/2025 12:27 PM EST) WBC 8.4 4.8 - 10.8 K/mcL LAB HEMETOLOGY METHOD 01/14/2025 12:57 PM EST [facility] RBC 4.30(L) 4.50 - 5.50 M/mcL LAB HEMETOLOGY METHOD 01/14/2025 12:57 PM EST [facility] Hemoglobin 13.9 13.5 - 17.5 g/dL LAB HEMETOLOGY METHOD 01/14/2025 12:57 PM EST [facility] Hematocrit 40.9(L) 42.0 - 54.0 % LAB HEMETOLOGY METHOD 01/14/2025 12:57 PM [facility] MCV 96.2 79.0 - 98.0 FL LAB HEMETOLOGY METHOD 01/14/2025 12:57 PM [facility] MCH 32.7(H) 27.0 - 32.0 pcg LAB HEMETOLOGY METHOD 01/14/2025 12:57 PM [facility] MCHC 34.0 32.0 - 37.0 g/dL LAB HEMETOLOGY METHOD 01/14/2025 12:57 PM [facility] RDW 13.3 11.0 - 15.0 % LAB HEMETOLOGY METHOD 01/14/2025 12:57 PM [facility] Platelets 269 130 - 400 K/mcL LAB HEMETOLOGY METHOD 01/14/2025 12:57 PM [facility] MPV 9.3 7.0 - 11.0 FL LAB HEMETOLOGY METHOD 01/14/2025 12:57 PM [facility] NRBC 0.0 <1.0 % LAB HEMETOLOGY METHOD 01/14/2025 12:57 PM [facility] NRBC Absolute 0.00 <0.10 K/mcL LAB HEMETOLOGY METHOD 01/14/2025 12:57 PM [facility] Neutrophils Relative 65.8 % LAB HEMETOLOGY METHOD 01/14/2025 12:57 PM [facility] Lymphocytes Relative 18.8 % LAB HEMETOLOGY METHOD 01/14/2025 12:57 PM [facility] Monocytes Relative 13.3 % LAB HEMETOLOGY METHOD 01/14/2025 12:57 PM [facility] Eosinophils Relative 1.2 % LAB HEMETOLOGY METHOD 01/14/2025 12:57 PM [facility] Basophils Relative 0.2 % LAB HEMETOLOGY METHOD 01/14/2025 12:57 PM EST [facility] Immature Granulocytes Relative 0.7 % LAB HEMETOLOGY METHOD 01/14/2025 12:57 PM [facility] Neutrophils Absolute 5.51 1.50 - 7.00 K/mcL LAB HEMETOLOGY METHOD 01/14/2025 12:57 PM [facility] Lymphocytes Absolute 1.58 1.00 - 5.00 K/mcL LAB HEMETOLOGY METHOD 01/14/2025 12:57 PM [facility] Monocytes Absolute 1.12(H) 0.20 - 1.00 K/mcL LAB HEMETOLOGY METHOD 01/14/2025 12:57 PM [facility] Eosinophils Absolute 0.10 0.00 - 0.50 K/mcL LAB HEMETOLOGY METHOD 01/14/2025 12:57 PM [facility] Basophils Absolute 0.02 0.00 - 0.20 K/mcL LAB HEMETOLOGY METHOD 01/14/2025 12:57 PM EST [facility] Immature Granulocytes Absolute 0.06(H) 0.00 - 0.03 K/mcL LAB HEMETOLOGY METHOD 01/14/2025 12:57 PM [facility] Blood Venous blood specimen / Unknown Venipuncture / Unknown 01/14/2025 12:27 PM EST 01/14/2025 12:52 PM EST us Todd Linda MD LAB BLOOD ORDERABLES Final Resu lt [facility] [address] [place] [address], * (ABNORMAL) Basic metabolic panel (01/14/2025 12:27 PM EST) Sodium 139 133 - 145 mmol/L LAB CHEMISTRY METHOD 01/14/2025 1:21 PM [facility] Potassium 4.2 3.5 - 5.5 mmol/L LAB CHEMISTRY METHOD 01/14/2025 1:21 PM [facility] Chloride 110 96 - 110 mmol/L LAB CHEMISTRY METHOD 01/14/2025 1:21 PM [facility] CO2 26 21 - 32 mmol/L LAB CHEMISTRY METHOD 01/14/2025 1:21 PM [facility] Anion Gap 3 3 - 11 LAB CHEMISTRY METHOD 01/14/2025 1:21 PM [facility] Glucose 106(H) 70 - 100 mg/dL LAB CHEMISTRY METHOD 01/14/2025 1:21 PM [facility] BUN 19 5 - 25 mg/dL LAB CHEMISTRY METHOD 01/14/2025 1:21 PM [facility] Creatinine 0.70 0.70 - 1.30 mg/dL LAB CHEMISTRY METHOD 01/14/2025 1:21 PM [facility] eGFR 93 >=60 mL/min/1. 73m2 LAB CHEMISTRY METHOD 01/14/2025 1:21 PM [facility] Comment:Calculation based on the??Chronic Kidney Disease Epidemiology Collaboration (CKD-EPI) equation refit??without adjustment for race. BUN/Creatinine Ratio 27.1 LAB CHEMISTRY METHOD 01/14/2025 1:21 PM [facility] Calcium 9.3 8.5 - 10.5 mg/dL LAB CHEMISTRY METHOD 01/14/2025 1:21 PM [facility] Blood Venous blood specimen / Unknown Venipuncture / Unknown 01/14/2025 12:27 PM EST 01/14/2025 12:52 PM EST us Todd Linda MD LAB BLOOD ORDERABLES Final Resu lt [facility] [address] [place] [address], from Last 3 Months Insurance [employer] Care Teams Face Worker Relationship Specialty Start Date End Date Sam Pitts MD [address] [place] [id number] PCP - General Internal Medicine 09/24/21
== END 2025-04-06 11:24 | disposition home or self-care (01) ==
LOC: HO.HOS 10:40
PROVIDERS: PCP Internal Medicine; Visit Provider Orthopaedic Surgery
DX: M25.811 Other specified joint disorders, right shoulder (principal); M25.511 Pain in right shoulder
CPT/HCPCS: 20610; 99213

== ENCOUNTER 2025-06-08 10:59 | Outpatient (AMB) | payer MEDICARE, SELFPAY ==
[2025-06-08 11:03] VITALS: BMI 28.7
--- NOTE | 2025-06-08 11:03 | MHC.OFFVIS ---
Vital Signs 06/08/25 11:03 Height 5 ft 1 in Weight 152 lb BMI 28.7 Intake Visit Reasons: Left knee pain and giving way Intake Note: Luc is an 79 year old male who presents with complaints of progressively worsening left knee pain and giving way. The patient did undergo left knee arthroscopic surgery last year. He states that he got very good relief from that procedure. He states that he re-injured his left knee approximately 5 months ago when he fell and twisted his knee. Since that time his symptoms have gotten worse. He has had cortisone injections in the past which gave him minimal relief. He has failed the last 6 weeks of conservative treatment which has included a home exercise program, physical therapy exercises, Tylenol and meloxicam. Wishes to hold off on total knee replacement surgery for as long as possible. He states that his left knee will give out several times per day. Allergies No Known Allergies Allergy (Verified 06/08/25 11:10) Medication List - Last Reconciled 06/08/25 by Wiliam Rowan MD aspirin (Adult Aspirin Regimen) 81 mg PO DAILY atorvastatin 80 mg PO DAILY ezetimibe (Zetia) 10 mg PO DAILY finasteride 5 mg PO DAILY isosorbide mononitrate ER 30 mg PO DAILY lisinopril 10 mg PO DAILY meloxicam 15 mg PO DAILY PRN methylprednisolone (Medrol (Augie)) PO PER PKG DIR metoprolol succinate ER 50 mg PO DAILY multivitamin 1 tab PO DAILY omeprazole 20 mg PO DAILY [facility] Medical History Impaired fasting glucose Back pain BPH (benign prostatic hyperplasia) GERD (gastroesophageal reflux disease) Arthritis Hyperlipidemia HTN (hypertension) CAD (coronary artery disease) Surgical History History of excision of mass H/O colonoscopy Stented coronary artery Family History Father Cancer Mother Cancer Social History Are you a primary caregivers homecare to a significant other at home: No Do you presently have visiting nurse or other home services: No Patient Tobacco Use Status: Former Tobacco user Tobacco use type: Cigarette Current occupational status: retired Current occupation: 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 Physical Exam Vital Signs: BMI result Body Mass Index 28.7 Const Other: Well-nourished well-developed very friendly male awake alert and oriented x3 in no acute distress Extrem Other: Bilateral lower extremity examination shows good capillary refill, no skin lesions noted, normal sensation light touch Left knee examination shows a minimal effusion, mild crepitus with range of motion, tenderness along his medial joint line, positive Debbie's test, no instability Results Reviewed Results Reviewed: X-rays of the patient's left knee taken previously show mild to moderate joint space narrowing, no acute bony abnormalities Assessment & Plan Assessment & Plan (1) Tear of medial meniscus of left knee: Code(s): S83.242A - Other tear of medial meniscus, current injury, left knee, initial encounter Category: Medical Plan Mr. Boswell presents with recurrent left knee pain and giving way due to degenerative joint disease as well as a medial meniscus tear. I had a lengthy discussion with the patient regarding the treatment options. He wishes to hold off on total knee replacement surgery if at all possible. We did discuss the risks and benefits of revision left knee arthroscopic surgery. The patient wishes to proceed with surgery. The patient does understand that he may not get 100% relief of his symptoms depending on the severity of his degenerative changes. He will be scheduled for next available date. He will follow-up as instructed. Feel free to call me at any time should questions regarding his orthopedic management arise. I spent 20 minutes in reviewing the patient's records and imaging studies, seeing the patient and documenting in the medical record. Coding Level of Care Code Est Pt Level 3 (91213) Complex EM visit Add On G2211 Diagnoses Tear of medial meniscus of left knee S83.242A
--- OUTSIDE RECORDS SUMMARY | 2025-06-08 12:08 | XMS_ITS | Patient Health Record ---
Author Organization [facility] [place] Address [address] [place] [address] Care Team Providers Care Lock Technician Name Role Phone Sam Pitts MD Primary Care Provider Unavaila ble Neto Doris Unavailable [phone] Reason For Referral No Information Medications Medication SIG (Take, Route, Frequency, Duration) Notes Start Date End Date Status Metoprolol Succinate ER 50 MG TK 1 T PO ONCE A DAY Oral; Duration: 30 Active Rhonda Childrens Aspirin 05/22/2016 Active Lisinopril 10 MG TK 1 T PO QD Oral; Duration: 30 Active Atorvastatin Calcium 80 MG TK 1 T PO QD Oral; Duration: 30 Active Problems No Known Problems Plan Of Treatment No Information Insurance Providers Payer Name Payer Address Payer Phone Subscriber Number Group Number Insured Name Patient Relationship to Insured Coverage Start Date Coverage End Date [facility] [address] [place] [address] [phone] [id number] Luc Boswell Self - patient is the insured Medical (General) History Medical History History ICD Code Cholesterol Chicken pox High blood pressure Measles Mumps Heart valve conditions/replacement Surgical History Surgery Date(Month/Year) stent insertion gall stones
--- OUTSIDE RECORDS SUMMARY | 2025-06-08 12:08 | XMS_ITS | Clinical Summary ---
Author Organization [facility] Address [address] [place] [address] Phone Care Team Providers Care Digital Intern Name Role Phone Sam Pitts MD Primary Care Provider [phone] Allergies No known active allergies Surgical History Surgery Date Site/Laterality Comments CHOLECYSTECTOMY PROCEDURE: [place] LAPAROSCOPY SURG CHOLECYSTECTOMY HERNIA REPAIR PROCEDURE: HISTORICAL HERNIA REPAIR/UMB KNEE ARTHROSCOPY 07/27/2020 Left PROCEDURE: [place] ARTHROSCOPY AID [place] SPINE&/FX KNEE W/O FIXJ; COMMENT: Partial Medial Meniscectomy, Dr. Esteves HAND SURGERY Right PROCEDURE: HISTORICAL HAND SURGERY; COMMENT: Long Finger repair, due to traumatic injury OTHER SURGICAL HISTORY PROCEDURE: [place] PATIENT HAS A CORONARY ARTERY STENT; COMMENT: [...] 73 01/14/2025 3:01 PM EST Temperature 36.7 C (98 F) 01/14/2025 3:01 PM EST Respiratory Rate 16 [...] 2025 10/18/2024, 08/16/2023, 01/27/2022, Additional history exists Influenza Vaccine (#1) 2025 , 08/16/2023, 09/05/2022, Additional history exists Diabetes: Annual GFR (Glomerular Filtration Rate) 01/14/2026 01/14/2025, 03/25/2024, 03/18/2018 Hypertension/CHF/CAD Annual BMP Blood Test 01/14/2026 01/14/2025, 03/25/2024, 03/18/2018 DTaP,Tdap,and Td Vaccines (2 - Td or Tdap) 09/24/2029 09/24/2019 Pneumococcal Vaccine: 50+ Years Completed 10/04/2022, 08/30/2015 HIB Vaccines Aged Out No longer eligi [...] Procedure Name Priority Date/Time Associated Diagnosis Comments BASIC METABOLIC PANEL STAT 01/14/2025 12:27 PM EST from Last 3 Months or Most Recently Relevant to Health Maintenance Results * (ABNORMAL) Basic metabolic panel (01/14/2025 12:27 PM EST) Sodium 139 133 - 145 mmol/L LAB CHEMISTRY METHOD 01/14/2025 1:21 PM [facility] Potassium 4.2 3.5 - 5.5 mmol/L LAB CHEMISTRY METHOD 01/14/2025 1:21 PM [facility] Chloride 110 96 - 110 mmol/L LAB CHEMISTRY METHOD 01/14/2025 1:21 PM [facility] CO2 26 21 - 32 mmol/L LAB CHEMISTRY METHOD 01/14/2025 1:21 PM [facility] Anion Gap 3 3 - 11 LAB CHEMISTRY METHOD 01/14/2025 1:21 PM [facility] Glucose 106(H) 70 - 100 mg/dL LAB CHEMISTRY METHOD 01/14/2025 1:21 PM EST [facility] BUN 19 5 - 25 mg/dL LAB CHEMISTRY METHOD 01/14/2025 1:21 PM [facility] Creatinine 0.70 0.70 - 1.30 mg/dL LAB CHEMISTRY METHOD 01/14/2025 1:21 PM [facility] eGFR 93 >=60 mL/min/1. 73m2 LAB CHEMISTRY METHOD 01/14/2025 1:21 PM EST [facility] Comment:Calculation based on the Chronic Kidney Disease Epidemiology Collaboration (CKD-EPI) equation refit without adjustment for race. BUN/Creatinine Ratio 27.1 LAB CHEMISTRY METHOD 01/14/2025 1:21 PM [facility] Calcium 9.3 8.5 - 10.5 mg/dL LAB CHEMISTRY METHOD 01/14/2025 1:21 PM [facility] Blood Venous blood specimen / Unknown Venipuncture / Unknown 01/14/2025 12:27 PM EST 01/14/2025 12:52 PM EST [facility] Dennis Linda MD LAB BLOOD ORDERABLES Final Resu lt [facility] [address] [place] [address], from Last 3 Months or Most Recently Relevant to Health Maintenance Insurance [employer] Care Teams Digital Intern Relationship Specialty Start Date End Date Sam Pitts MD [address] [place] [address] PCP - General Internal Medicine 09/24/21
--- OUTSIDE RECORDS SUMMARY | 2025-06-08 12:08 | XMS_ITS | Patient Health Record ---
Author Organization [facility] Address [address] [place] [address] Care Team Providers Care Surveillance Specialist Name Role Phone Ijeoma ACOSTA, [place] Primary Care Provider Flo Tello Jr Unavailable Reason For Referral No Information Medications Medication SIG (Take, Route, Frequency, Duration) Notes Start Date End Date Status Lansoprazole 15 MG 1 capsule Orally Onc e a day/prn Active Atorvastatin Calcium 80 MG 1 tablet Oral ly Once a day Active Aspir-81 81 MG 1 tablet Orally Once a day Active Lisinopril 10 MG 1 tablet Orally Once a day Active Metoprolol & Diet Manage Prod 50 MG as directed Orally once a day Active Colyte with Flavor Packs 240 GM As directed Orally Over the specified time. for 1 day(s) 04/14/2019 Active Immunizations Vaccine Route Administration Date Status Comme nts Influenza Unknown 09/09/2018 Administered Problems Problem Type SNOMED Code ICD Code Onset Dates Problem Status W/U Status Risk Notes Problem [id number] Colon cancer screening (Z12.11) Active confirmed Problem [id number] care home (current) use of aspirin (Z79.82) Active confirmed Plan Of Treatment Future Test Test Name Order Date COLONOSCOPY 10/01/2013 COLONOSCOPY 04/14/2019 Insurance Providers Payer Name Payer Address Payer Phone Subscriber Number Group Number Insured Name Patient Relationship to Insured Coverage Start Date Coverage End Date [facility] [address] [place] [address] [id number] ANJU ESPINAL Self - patient is the insured Medicare of [facility] [address] [place] [address] [id number] ANJU ESPINAL Self - patient is the insured Medical (General) History Medical History History ICD Code colonoscopy 02/04/14, tubular adenoma x1 GERD elevated cholesterol coronary artery disease, history of [place] Surgical History Surgery Date(Month/Year) hernia surgery finger surgery stent placement 2006
== END 2025-06-08 11:43 | disposition home or self-care (01) ==
LOC: HO.HOS 11:00
PROVIDERS: PCP Internal Medicine; Visit Provider Orthopaedic Surgery
DX: S83.242A Other tear of medial meniscus, current injury, left knee, initial encounter (principal)
CPT/HCPCS: 99214; G2211

== ENCOUNTER → 2025-06-08 10:59 | Outpatient (BNVA) | payer MEDICARE, SELFPAY | PROVIDERS: PCP Internal Medicine; Visit Provider Orthopaedic Surgery | DX: M25.562 Pain in left knee (principal); S83.242A Other tear of medial meniscus, current injury, left knee, initial encounter | CPT/HCPCS: 99212 ==

== ENCOUNTER 2025-07-15 07:00 | Day surgery (SDC) | payer MEDICARE, SELFPAY ==
--- OUTSIDE RECORDS SUMMARY | 2025-06-09 07:53 | XMS_ITS | Clinical Summary ---
Author Organization [facility] Address [address] [place] [address] Phone Care Team Providers Care Audit Consultant Name Role Phone Sam Pitts MD Primary Care Provider [phone] Allergies No known active allergies Surgical History Surgery Date Site/Laterality Comments CHOLECYSTECTOMY PROCEDURE: NE LAPAROSCOPY SURG CHOLECYSTECTOMY HERNIA REPAIR PROCEDURE: HISTORICAL HERNIA REPAIR/UMB KNEE ARTHROSCOPY 07/27/2020 Left PROCEDURE: NE ARTHROSCOPY AID TX SPINE&/FX KNEE W/O FIXJ; COMMENT: Partial Medial Meniscectomy, Dr. Esteves HAND SURGERY Right PROCEDURE: HISTORICAL HAND SURGERY; COMMENT: Long Finger repair, due to traumatic injury OTHER SURGICAL HISTORY PROCEDURE: NE PATIENT HAS A CORONARY ARTERY STENT; COMMENT: [...] mmol/L LAB CHEMISTRY METHOD 01/14/2025 1:21 PM [facility] Potassium 4.2 3.5 - 5.5 mmol/L LAB CHEMISTRY METHOD 01/14/2025 1:21 PM [facility] Chloride 110 96 - 110 mmol/L LAB CHEMISTRY METHOD 01/14/2025 1:21 PM [facility] CO2 26 21 - 32 mmol/L LAB CHEMISTRY METHOD 01/14/2025 1:21 PM [facility] Anion Gap 3 3 - 11 LAB CHEMISTRY METHOD 01/14/2025 1:21 PM [facility] Glucose 106(H) 70 - 100 mg/dL LAB CHEMISTRY METHOD 01/14/2025 1:21 PM EST [facility] BUN 19 5 - 25 mg/dL LAB CHEMISTRY METHOD 01/14/2025 1:21 PM [facility] Creatinine 0.70 0.70 - 1.30 mg/dL LAB CHEMISTRY METHOD 01/14/2025 1:21 PM [facility] eGFR 93 >=60 mL/min/1. 73m2 LAB CHEMISTRY METHOD 01/14/2025 1:21 PM EST [facility] Comment:Calculation based on the Chronic Kidney Disease Epidemiology Collaboration (CKD-EPI) equation refit without adjustment for race. BUN/Creatinine Ratio 27.1 LAB CHEMISTRY METHOD 01/14/2025 1:21 PM [facility] Calcium 9.3 8.5 - 10.5 mg/dL LAB CHEMISTRY METHOD 01/14/2025 1:21 PM [facility] Blood Venous blood specimen / Unknown Venipuncture / Unknown 01/14/2025 12:27 PM EST 01/14/2025 12:52 PM EST [facility] Dennis Linda MD LAB BLOOD ORDERABLES Final Resu lt [facility] [address] [place] [address], from Last 3 Months or Most Recently Relevant to Health Maintenance Insurance [employer] Care Teams Audit Consultant Relationship Specialty Start Date End Date Sam Pitts MD [address] [place] [address] PCP - General Internal Medicine 09/24/21
--- OUTSIDE RECORDS SUMMARY | 2025-06-09 07:53 | XMS_ITS | Patient Health Record ---
Author Organization [facility] [place] Address [address] [place] [address] Care Team Providers Care Senior Process Engineer Name Role Phone Sam Pitts MD Primary Care Provider Unavaila ble Neto Doris Unavailable [phone] Reason For Referral No Information Medications Medication [...] Insured Coverage Start Date Coverage End Date [facility] [address] [place] [address] [id number] Luc Boswell Self - patient is the insured Medical (General) History Medical History History ICD Code Cholesterol Chicken pox High blood pressure Measles Mumps Heart valve conditions/replacement Surgical History Surgery Date(Month/Year) stent insertion gall stones
--- OUTSIDE RECORDS SUMMARY | 2025-06-09 07:53 | XMS_ITS | Patient Health Record ---
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 [address] [place] [address] [id number] ANJU ESPINAL Self - patient is the insured Medicare of [facility] [address] [place] [address] [id number] ANJU ESPINAL Self - patient is the insured Medical (General) History Medical History History ICD Code colonoscopy 02/04/14, tubular adenoma x1 GERD elevated cholesterol coronary artery disease, history of [place] Surgical History Surgery Date(Month/Year) hernia surgery finger surgery stent placement 2006
[2025-07-01 10:08] VITALS: BMI 31.0
[2025-07-01 10:27] VITALS: BP 165/79; PULSE 51; RESP 16; O2SAT 97
--- NOTE | 2025-07-01 10:28 | HO.ANESPROP2 ---
Documented by User: Clara Telles NP 07/13/25 14:53 HPI - Anesthesia Eval Consult details Narrative: 79yo M for Left Knee Arthroscopy with partial Medial meniscectomy, 07/15/25 Cardiac optimized via workload. Follows [facility] Cardiology for CAD s/p stent. Last office visit 12/2024 - sent for nuc stress for AUGUST. s/p same 03/2024 with GA-LMA 4 No recent illness No CP, some AUGUST with yard work for months. Resolves with rest. Cardiology aware and testing complete GERD: ppi controls Moderate postive Stop Bang PMFSH Active Problems Active Problems: All Active Problems Impingement of right shoulder (Acute) Right shoulder pain (Acute) SOB (shortness of breath) on exertion (Acute) Tear of medial meniscus of left knee (Acute) Preop cardiovascular exam (Acute) Left knee pain (Acute) Arthritis of right knee (Acute) Arthritis of left knee (Acute) Abnormal nuclear cardiac imaging test (Acute) Exertional chest pain (Acute) Stented coronary artery (Acute) Hyperlipidemia (Acute) HTN (hypertension) (Acute) CAD (coronary artery disease) (Acute) Past Medical History Medical History Ambulates with cane Bilateral numbness and tingling of arms and legs AUGUST (dyspnea on exertion) Chronic cough Snores Impaired fasting glucose Back pain BPH (benign prostatic hyperplasia) GERD (gastroesophageal reflux disease) Arthritis Hyperlipidemia HTN (hypertension) CAD (coronary artery disease) Family History Family History Father Cancer Mother Cancer Family history of problems with anesthesia: No (Daughter with PONV) Surgical History Surgical History H/O heart artery stent (~2014) Hx of arthroscopy of left knee (04/02/24) History of excision of mass H/O colonoscopy Stented coronary artery History of Problems with Anesthesia: No Social History Social History Household Members: Family Housing: House Are you a primary care transition manager to a significant other at home: No Do you presently have visiting nurse or other home services: No Patient Tobacco Use Status: Former Tobacco user Tobacco use type: Cigarette Use of substances other than those prescribed or required for medical reasons: No Have you been hit, kicked, punched, or otherwise hurt by someone within the past year? If so, by whom?: No Are you DNR?: No Advance Directives: No Advance Directives Information Provided: Yes Advance Directives on File: No Poor oral hygiene: Yes Current occupational status: retired Current occupation: 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 Meds Allergies Allergy/AdvReac Type Severity Reaction Status Date / Time No Known Allergies Allergy Verified 06/08/25 11:10 Home Medications ?Medication ?Instructions ?Recorded ?Confirmed ?Last Taken ?Type aspirin 81 mg tablet,delayed 81 mg PO DAILY 07/23/21 07/15/25 07/13/25 History release (Adult Aspirin Regimen) finasteride 5 mg tablet 5 mg PO DAILY 12/24/23 07/15/25 07/14/25 History multivitamin 1 tab PO DAILY 03/30/24 07/15/25 07/14/25 History omeprazole 20 mg tablet,delayed 20 mg PO DAILY 03/30/24 07/15/25 07/14/25 History release Exam Height,Weight and Vital Signs: Height 5 ft Weight 72.121 kg Pertinent Lab Results Pertinent Lab Results: Laboratory Tests 04/06/25 10:27 WBC 7.1 Hgb 14.7 Hct 41.5 L Plt Count 247 Sodium 141 Potassium 4.5 Chloride 107 Carbon Dioxide 28 BUN 19 H Creatinine 0.73 Narrative Narrative: EKG 12/2024 Details: EKG shows normal sinus rhythm with normal EKG NM clark perf SPECT rest & str 03/2025 Impression: 1. Myocardial perfusion imaging study shows nontransmural infarct pattern in the inferior wall with some lui-infarct ischemia. Probable components of diaphragmatic attenuation artifact superimposed. 2. Gated LVEF is 70% during stress and 70% during rest. Correlate with echocardiogram. 3. Transient ischemic dilatation not present. ECHO 12/2024 Conclusions: - 1. Normal LV ejection fraction of 60 65% with grade 1 diastolic dysfunction 2. Mildly dilated left atrium 3. Mild aortic stenosis 4. Normal RV systolic pressure 5. No gross pericardial effusion Airway Mallampati Class: II TM Dist: >3cm Neck ROM: Full Loose/Missing/Broken Teeth: Yes (many missing throughout - pt denies any loose or broken) Heart: RRR +Murmur (known mild ) Lungs: CTAB Assessment and Plan Assessment Anesthesia Assessment: Anesthesia Plan Discussed and PAT Visit Final Anesthetic Review Family History of Problems with Anesthesia: No (Daughter with PONV) History of Problems with Anesthesia: No Documented by User: Judith Marie MD 07/15/25 09:12 [facility] Past Medical History Medical History Ambulates with cane Bilateral numbness and tingling of arms and legs AUGUST (dyspnea on exertion) Chronic cough Snores Impaired fasting glucose Back pain BPH (benign prostatic hyperplasia) GERD (gastroesophageal reflux disease) Arthritis Hyperlipidemia HTN (hypertension) CAD (coronary artery disease) Family History Family History Father Cancer Mother Cancer Surgical History Surgical History H/O heart artery stent (~2014) Hx of arthroscopy of left knee (04/02/24) History of excision of mass H/O colonoscopy Stented coronary artery Social History Social History Household Members: Family Housing: House Are you a primary care transition manager to a significant other at home: No Do you presently have visiting nurse or other home services: No Patient Tobacco Use Status: Former Tobacco user Tobacco use type: Cigarette Use of substances other than those prescribed or required for medical reasons: No Have you been hit, kicked, punched, or otherwise hurt by someone within the past year? If so, by whom?: No Are you DNR?: No Advance Directives: No Advance Directives Information Provided: Yes Advance Directives on File: No Poor oral hygiene: Yes Current occupational status: retired Current occupation: 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 Meds Allergies Allergy/AdvReac Type Severity Reaction Status Date / Time No Known Allergies Allergy Verified 06/08/25 11:10 Home Medications ?Medication ?Instructions ?Recorded ?Confirmed ?Last Taken ?Type aspirin 81 mg tablet,delayed 81 mg PO DAILY 07/23/21 07/15/25 07/13/25 History release (Adult Aspirin Regimen) finasteride 5 mg tablet 5 mg PO DAILY 12/24/23 07/15/25 07/14/25 History multivitamin 1 tab PO DAILY 03/30/24 07/15/25 07/14/25 History omeprazole 20 mg tablet,delayed 20 mg PO DAILY 03/30/24 07/15/25 07/14/25 History release Assessment and Plan Assessment Anesthesia Assessment: Chart Reviewed Final Anesthetic Review NPO: Yes ASA Class: III Final Preanesthetic Review: No Changes in Pt Med Stat, Meds/Allgs Chart Reviewed, Consent Obtained/Reviewed and Anes Risks/Benef Reviewed Patient Risk: Intermediate Procedure Risk: Low Anesthetic Plan Anesthetic Plan: GA Disposition: Standard PACU
[2025-07-15] VITALS (10 sets, daily range): BP systolic 124–163; BP diastolic 59–82; PULSE 58–75; RESP 13–21; TEMP 36.1–36.8; O2SAT 93–98
[2025-07-15] MEDS: Lactated Ringers 1,000 ML 100 ML IVCONT (08:02)
--- NOTE | 2025-07-15 09:43 | PM.OP ---
Brief Operative Note Date of Service: 07/15/25 Pre-op diagnosis: Left knee medial meniscus tear, left knee degenerative joint disease Post-op diagnosis: same Procedure: Left knee arthroscopic partial medial meniscectomy, left knee arthroscopic chondroplasty of the medial femoral condyle and the undersurface of the patella Implants: none Surgeon: Wiliam Rowan MD Anesthesia: GLMA Was an Civil Cadd Technician used for this Procedure?: No Estimated blood loss (mL): 10 Pathology: none sent Condition: stable Disposition: PACU
--- NOTE | 2025-07-15 09:44 | W.PM.OPN ---
Operative Note Operative Note Date of Service: 07/15/25 Narrative: After the patient was identified as Luc Boswell and his left knee was initialed by myself they were brought to the operating room where general anesthesia was induced by the anesthesiologist in routine fashion. The patient was given 2 g of IV Ancef preoperatively for infection prophylaxis. The patient's left lower extremity was prepped and draped in sterile fashion. A formal time-out was completed. Marcaine was injected into the planned incision sites as well as the patient's left knee joint. A #11 scalpel blade was used to make an anterolateral portal 1 cm proximal to the joint line and 1 cm lateral to the patellar tendon. Blunt trocar technique was used to enter the suprapatellar pouch with the knee in extension. Diagnostic arthroscopy showed multiple bands of thickened plica which would be excised at the end of the procedure. There were no loose bodies or abnormalities found in either the medial or lateral gutters. The articular surface of the patella showed diffuse grades 2 and 3 degenerative changes. The trochlear groove articular surface showed diffuse grades 1 and 2 degenerative changes. The patient's knee was flexed to 45 degrees and a valgus force was placed upon it. The medial compartment was entered. An anteromedial portal was made 1 cm proximal to the joint line and 1 cm medial to the patellar tendon. Probing of the medial meniscus showed a radial tear of the posterior horn. A partial medial meniscectomy was performed using the arthroscopic shaver. Following the partial meniscectomy the remainder of the meniscus tissue was stable. There were diffuse grades 3 and 4 degenerative changes of the medial femoral condyle as well as grades 3 and 4 degenerative changes of the medial tibial plateau. The articular surface of the medial femoral condyle was then made smooth using the arthroscopic shaver. The articular surface of the medial tibial plateau was already smooth so no chondroplasty was indicated. The patient's knee was placed into a neutral position. There was no injury to the anterior cruciate ligament. The patient's knee was then placed in the figure of 4 position and the lateral compartment was entered. There was no evidence of lateral meniscus tearing. There were minimal degenerative changes of the lateral femoral condyle and lateral tibial plateau. The patient's knee was once again brought into extension and the suprapatellar pouch was entered. The arthroscopic shaver and the ArthroCare Wand were used to excise the thickened bands of plica. The undersurface of the patella was then made smooth using the arthroscopic shaver. The articular surface of the trochlear groove was already smooth so no chondroplasty was indicated. The knee joint was irrigated and then drained. All arthroscopic instruments were removed. The 2 portals were closed with 3-0 nylon interrupted suture. The knee joint was injected with Marcaine. Dry sterile dressing and Joe bandages were placed over the patient's knee. The patient was awoken and extubated in the operating room. The patient was transferred to the recovery room in stable condition.
== END 2025-07-15 11:33 | disposition home or self-care (01) ==
PROVIDERS: PCP Internal Medicine; Visit Provider Orthopaedic Surgery
PROC: (CPT 29870; principal; 2025-07-15 09:00)
DX: S83.242A Other tear of medial meniscus, current injury, left knee, initial encounter (principal); M25.562 Pain in left knee; M17.12 Unilateral primary osteoarthritis, left knee; M23.52 Chronic instability of knee, left knee; M67.52 Plica syndrome, left knee; M54.9 Dorsalgia, unspecified; I10 Essential (primary) hypertension; E78.5 Hyperlipidemia, unspecified; I25.10 Atherosclerotic heart disease of native coronary artery without angina pectoris; Z95.5 Presence of coronary angioplasty implant and graft; K21.9 Gastro-esophageal reflux disease without esophagitis; Z98.890 Other specified postprocedural states; W19.XXXA Unspecified fall, initial encounter; X50.1XXA Overexertion from prolonged static or awkward postures, initial encounter; Y93.9 Activity, unspecified; Y92.9 Unspecified place or not applicable; Y99.9 Unspecified external cause status; Z79.82 Long term (current) use of aspirin; Z79.899 Other long term (current) drug therapy; R73.01 Impaired fasting glucose; M19.90 Unspecified osteoarthritis, unspecified site; Z87.891 Personal history of nicotine dependence
CPT/HCPCS: 29881; J0131; J0165; J0690; J0696; J1100; J2003; J2405; J2704; J2795; J3010

== ENCOUNTER → 2025-07-15 07:00 | Outpatient (BNV) | payer MEDICARE, SELFPAY | PROVIDERS: PCP Internal Medicine; Visit Provider Orthopaedic Surgery | DX: S83.242A Other tear of medial meniscus, current injury, left knee, initial encounter (principal) | CPT/HCPCS: 29881 ==

== ENCOUNTER 2025-07-28 11:24 | Outpatient (AMB) | payer MEDICARE, SELFPAY ==
--- NOTE | 2025-07-28 11:37 | A.OFFVIS_ITS ---
Vital Signs 07/28/25 11:38 Height 4 ft 11 in Weight 156 lb BMI 31.5 Intake Visit Reasons: Left knee pain Intake Note: Luc is a 79 year old male who presents with complaints of mild intermittent discomfort in his left knee after undergoing left knee arthroscopic surgery on 07/15/2025. He continues with his home stretching program. He has been able to mow his grass with minimal discomfort. He denies any fevers or chills. Allergies No Known Allergies Allergy (Verified 07/28/25 11:39) Medication List - Last Reconciled 07/28/25 by Wiliam Rowan MD aspirin (Adult Aspirin Regimen) 81 mg PO DAILY atorvastatin 80 mg PO DAILY ezetimibe (Zetia) 10 mg PO DAILY finasteride 5 mg PO DAILY isosorbide mononitrate ER 30 mg PO DAILY lisinopril 10 mg PO DAILY meloxicam 15 mg PO DAILY PRN methylprednisolone (Medrol (Augie)) PO PER PKG DIR metoprolol succinate ER 50 mg PO DAILY multivitamin 1 tab PO DAILY omeprazole 20 mg PO DAILY PFSH Medical History Ambulates with cane Bilateral numbness and tingling of arms and legs AUGUST (dyspnea on exertion) Chronic cough Snores Impaired fasting glucose Back pain BPH (benign prostatic hyperplasia) GERD (gastroesophageal reflux disease) Arthritis Hyperlipidemia HTN (hypertension) CAD (coronary artery disease) Surgical History H/O heart artery stent (~2014) Hx of arthroscopy of left knee (04/02/24) History of excision of mass H/O colonoscopy Stented coronary artery Family History Father Cancer Mother Cancer Social History Household Members: Family Housing: House Are you a primary dialysis patient care technician to a significant other at home: No Do you presently have visiting nurse or other home services: No Patient Tobacco Use Status: Former Tobacco user Tobacco use type: Cigarette Current occupational status: retired Current occupation: 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 Physical Exam Vital Signs: BMI result Body Mass Index 31.5 Const Other: Well-nourished well-developed very friendly male awake alert and oriented x3 in no acute distress Extrem Other: Left knee examination shows that the surgical incisions are healing well, no erythema, minimal discomfort with range of motion, no instability Assessment & Plan Assessment & Plan (1) Left knee pain: Code(s): M25.562 - Pain in left knee Category: Medical Plan Mr. Boswell continues to do well after undergoing left knee arthroscopic surgery on 07/18/2025. His sutures were removed and Steri-Strips placed over his incisions. He will gradually progress to activities as tolerated. He will contact me prior to his follow-up appointment in 3 months should any questions or concerns arise. Feel free to call me at any time should questions regarding his orthopedic management arise. Coding Level of Care Code Global (60060) Diagnoses Left knee pain M25.562
[2025-07-28 11:38] VITALS: BMI 31.5
--- OUTSIDE RECORDS SUMMARY | 2025-07-28 12:45 | XMS_ITS | Patient Health Record ---
Author Organization [facility] [place] Address [address] [place] [address] Care Team Providers Care Systems Trainer Name Role Phone Sam Pitts MD Primary Care Provider Unavaila ble Neto Doris Unavailable [phone] Reason For Referral No Information Medications Medication [...] Insured Coverage Start Date Coverage End Date [facility] [address] [place] [address] [id number] Luc Boswell Self - patient is the insured Medical (General) History Medical History History ICD Code Cholesterol Chicken pox High blood pressure Measles Mumps Heart valve conditions/replacement Surgical History Surgery Date(Month/Year) stent insertion gall stones
--- OUTSIDE RECORDS SUMMARY | 2025-07-28 12:45 | XMS_ITS | Clinical Summary ---
Author Organization [facility] Address [address] [place] [address] Phone Care Team Providers Care Silk Screen Operator Name Role Phone Sam Pitts MD Primary Care Provider [phone] Allergies No known active allergies Surgical History Surgery Date Site/Laterality Comments CHOLECYSTECTOMY PROCEDURE: [place] LAPAROSCOPY SURG CHOLECYSTECTOMY HERNIA REPAIR PROCEDURE: HISTORICAL HERNIA REPAIR/UMB KNEE ARTHROSCOPY 07/27/2020 Left PROCEDURE: [place] ARTHROSCOPY AID TX SPINE&/FX KNEE W/O FIXJ; COMMENT: Partial Medial Meniscectomy, Dr. Esteves HAND SURGERY Right PROCEDURE: HISTORICAL HAND SURGERY; COMMENT: Long Finger repair, due to traumatic injury OTHER SURGICAL HISTORY PROCEDURE: [place] PATIENT HAS A CORONARY ARTERY STENT; COMMENT: [...] series) 2018 Cholesterol Screening (Lipid Panel) 11/02/2022 Falls Risk Assessment 11/02/2022 Medicare Annual Wellness Visit 11/02/2022 Social Influencers of Health Screening 11/02/2022 Depression Screening 12/01/2024 Diabetes: Annual Urine Albumin-Creatinine Ratio (uACR) 01/14/2025 [...] mmol/L LAB CHEMISTRY METHOD 01/14/2025 1:21 PM [facility] Potassium 4.2 3.5 - 5.5 mmol/L LAB CHEMISTRY METHOD 01/14/2025 1:21 PM [facility] Chloride 110 96 - 110 mmol/L LAB CHEMISTRY METHOD 01/14/2025 1:21 PM [facility] CO2 26 21 - 32 mmol/L LAB CHEMISTRY METHOD 01/14/2025 1:21 PM [facility] Anion Gap 3 3 - 11 LAB CHEMISTRY METHOD 01/14/2025 1:21 PM [facility] Glucose 106(H) 70 - 100 mg/dL LAB CHEMISTRY METHOD 01/14/2025 1:21 PM EST [facility] BUN 19 5 - 25 mg/dL LAB CHEMISTRY METHOD 01/14/2025 1:21 PM [facility] Creatinine 0.70 0.70 - 1.30 mg/dL LAB CHEMISTRY METHOD 01/14/2025 1:21 PM [facility] eGFR 93 >=60 mL/min/1. 73m2 LAB CHEMISTRY METHOD 01/14/2025 1:21 PM EST [facility] Comment:Calculation based on the Chronic Kidney Disease Epidemiology Collaboration (CKD-EPI) equation refit without adjustment for race. BUN/Creatinine Ratio 27.1 LAB CHEMISTRY METHOD 01/14/2025 1:21 PM [facility] Calcium 9.3 8.5 - 10.5 mg/dL LAB CHEMISTRY METHOD 01/14/2025 1:21 PM [facility] Blood Venous blood specimen / Unknown Venipuncture / Unknown 01/14/2025 12:27 PM EST 01/14/2025 12:52 PM EST [facility] Dennis Linda MD LAB BLOOD ORDERABLES Final Resu lt [facility] [address] [place] [address], from Last 3 Months or Most Recently Relevant to Health Maintenance Insurance [employer] Care Teams Silk Screen Operator Relationship Specialty Start Date End Date Sam Pitts MD [address] [place] [address] PCP - General Internal Medicine 09/24/21
--- OUTSIDE RECORDS SUMMARY | 2025-07-28 12:45 | XMS_ITS | Clinical Summary ---
Author Organization [facility] Address [address] [address] Phone Care Team Providers Care Vehicle Monitor Technician Name Role Phone Sam Pitts MD Primary Care Provider [phone] Allergies No known active allergies Medications metoprolol succinate (TOPROL-XL) 50 MG 24 hr tablet Take 1 tablet by mouth daily. Active lisinopril (PRINIVIL,ZESTRI L) 10 MG tablet 1 tab daily Ac tive atorvastatin (LIPITOR) 80 MG tablet Orally Once a day Active aspirin 81 MG EC tablet Take 1 tablet by mouth daily. Active MULTIVITAMIN ORALIndications: Centrum Mens 50 plus Take 1 tablet by mouth daily. Indications: Centrum Mens 50 plus Active isosorbide mononitrate (IMDUR) 30 MG 24 hr tablet Take 30 mg by mouth daily. 3 Active omeprazole (PRILOSEC) 20 MG tablet Take 20 mg by mouth daily. Active finasteride (PROSCAR) 5 mg tablet Take 5 mg by mouth daily. 4 Active ezetimibe (ZETIA) 10 mg tablet Take 10 mg by mouth daily. 4 Active oxyCODONE 5 MG immediate release tabletIndication s:prescribed by Wiliam Rowan M.D to be taken post op. Indications: prescribed by Wiliam Rowan M.D to be taken post op. 4 Active Active Problems Problem Noted Date Diagnosed Date Anemia 01/13/2023 Bilateral hearing loss 01/13/2023 Assessment & Plan (01/13/2023 3:40 AM EST): Declines referral to audiology at this time. BPH (benign prostatic hyperplasia) 01/13/2023 Assessment & Plan (01/13/2023 3:41 AM EST): Continue to follow with urology Spasm of muscle of lower back 10/06/2022 Assessment & Plan (10/06/2022 1:28 PM EST): Discussed ongoing pain, he is going to trial Robaxin which has worked well in the past. He is aware that this will likely impair his balance and should not be combined with any other medications that could cause sedation. I recommend he consider physical therapy, but he states he is already done this and it was not helpful. We are also going to request his most recent pipe recovery specialist notes and consider returning to orthopedist given chronic issue. Right ear impacted cerumen 10/06/2022 Assessment & Plan (10/06/2022 1:27 PM EST): Removed with irrigation and curette today, will return if any recurrent symptoms Anal polyp 07/07/2020 Claudication in peripheral vascular disease 05/2020 Impaired fasting glucose 07/07/2020 LVH (left ventricular hypertrophy) 07/07/2020 Stented coronary artery 07/07/2020 Seborrheic dermatitis 09/24/2019 Chronic bilateral low back pain with left-sided sciatica 03/19/2019 Gastroesophageal reflux disease without esophagi tis 09/18/2018 Mixed hyperlipidemia 03/18/2018 Arteriosclerotic cardiovascular disease (ASCVD) 03/18/2018 Assessment & Plan (10/06/2022 1:26 PM EST): Continue care with cardiology, await results of most recent studies. Assessment & Plan (03/18/2018 11:25 AM EDT): He is followed by Dr. Kang. No chest pain. Essential hypertension 03/18/2018 Assessment & Plan (01/13/2023 3:40 AM EST): Stable on current medication regimen. Continue to follow with cardiology. Elevated PSA 03/18/2018 Assessment & Plan (03/18/2018 11:25 AM EDT): He is followed by Dr. Chand annually. His PSA has been stable. Type 2 diabetes mellitus wit hout complication, without long-term current use of insulin 03/18/2018 Assessment & Plan (10/06/2022 1:27 PM EST): Check fasting labs Acute pain of right shoulder 03/18/2018 Immunizations Immunization Administration Dates Next Due COVID-19 (Pre-09/22) Pfizer Vaccine, mRNA, PF 08/28/2021 COVID-19 Pfizer Comirnaty Vaccine 12+ 08/16/2023 Influenza High-Dose Quadriva lent Preservative Free IM 08/16/2023 Influenza High-Dose Trivalen t Preservative Free IM 10/15/2024,09/24/2019 Influenza Quadrivalent Adjuv anted Preservative Free IM 09/05/2022,10/22/2021,09/16/2020 Influenza Quadrivalent Preservative Free IM 08/31 Influenza Trivalent Adjuvant ed Preservative free IM 08/29/2018 Pneumococcal conjugate PCV13 08/30/2015 Pneumococcal polysaccharide PPSV23 10/04/2022 Tdap 09/24/2019 Family History Medical History Relation Comments Brain cancer Brother Anxiety disorder Daughter Cancer Father Lung cancer Father smoker No Known Problems Son Relation Status Comments Brother Daughter Alive Father Mother Sibling Son Alive Social History Tobacco Use Types Packs/Day Years Used Date Smoking Tobacco: Former Cigarettes 1.5 25 1 961 - 10/23/1984 Smokeless Tobacco: Never Tobacco Cessation:Counseling Given: Not Answered Alcohol Use Standard Drinks/Week Comments Yes 0 (1 standard drink = 0.6 oz pure alcohol) 0-1 beer on Sundays before dinner Child or Family Care Answer Date Record ed Do you have problems with on e of the following making it difficult for you to work, study, or receive health care? No 08/29/2021 Education Answer Date Recorded Are you interested in more education? Not on deedee e 09/10/2023 Are you concerned about learning? Not on file 09/10/2023 No 09/10/2023 No 09/10/2023 Food Answer Date Recorded Within the past 6 months we worried whether our food would run out before we got money to buy more. Never True 08/29/2021 Food didn't last Not on file 08/29/2021 Residential Stability Answer Date Recor ded Family situation today data Not on file 08/02 How many times have you moved in the past 12 fri ths? One time 08/29/2021 Paying Utility Bills Answer Date Record ed Do you have trouble paying your heating or elect ricity bill? No 08/29/2021 Transportation Answer Date Recorded Has the lack of transportati on kept you from medical appointments or from getting medications? No 08/29/2021 Unemployment Answer Date Recorded Are you currently unemployed or working on a part-time or temporary basis, and looking for work? No 08/29/2021 Digital Access Answer Date Recorded No 04/26/2023 No 04/26/2023 Reliable internet access at home? Not on file 04/26/2023 Device with a working camera? Not on file Intimate Partner Violence Answer Date R ecorded Denied Basic Needs Not on file 10/15/2024 In the past 12 months have y ou been in a relationship with a person who hurts, threatens, or tries to control you? No 10/15/2024 Worried food would run out Not on file 10/15 In the past 12 months have y ou been in a relationship with a person who hurts, threatens, or tries to control you? No 10/15/2024 Sex and Gender Information Value Date Recorded Sex Assigned at Not on file Legal Sex Male 10:10 PM EDT Gender Identity Not on file Sexual Orientation Not on file Last Filed Vital Signs Vital Sign Reading Time Taken Comments Blood Pressure 120/56 02/18/2025 10:11 AM EDT Pulse 69 02/18/2025 10:11 AM EDT Temperature 36.6 C (97.8 F) 02/18/2025 10:11 AM EDT Respiratory Rate 16 02/18/2025 10:11 AM EDT Oxygen Saturation 97% 02/18/2025 10:11 AM EDT Inhaled Oxygen Concentration - - Weight 68.6 kg (151 lb 3.2 oz) 02/18/2025 10:11 AM EDT Height 154.6 cm (5' 0.87 ) 02/18/2025 10:11 AM E DT Body Mass Index 28.69 02/18/2025 10:11 AM EDT Plan of Treatment Upcoming Encounters Date Type Department Care Team (Late st Contact Info) Description 10/21/2025 10:00 AM EST Office Visit [facility] Internal Medicine [address] [place] [address] Sam Pitts MD [address] [place] [address] [email or web address] Maintenance Due Date Last Done Comments ZOSTER VACCINES (1 of 2) 1993 DIABETIC EYE EXAM 03/18/2018 06/20/2011 RSV VACCINE (1 - 1-dose 75+ series) 2018 COVID-19 VACCINE ( season) 2025 10/18/2024, 08/16/2023, 01/27/2022, Additional history exists HEMOGLOBIN A1C 05/04/2025 11/03/2024, 03/02, 10/23/2022, Additional history exists BLOOD PRESSURE 08/21/2025 02/18/2025 DEPRESSION SCREENING 10/15/2025 10/15/2024 CREATININE LEVEL 11/03/2025 11/03/2024, , 01/03/2023, Additional history exists POTASSIUM LEVEL 11/03/2025 11/03/2024, 03/02, 01/03/2023, Additional history exists Adult Td,Tdap Booster 09/24/2029 09/24/2019 PNEUMOCOCCAL VACCINES (50+ years) Completed 10/04/2022, 08/30/2015 HEPATITIS A VACCINES Aged Out No long er eligible based on patient's age to complete this topic HIB VACCINES Aged Out No longer eligi ble based on patient's age to complete this topic MENINGOCOCCAL VACCINES (ACWY) Aged Out No longer eligible based on patient's age to complete this topic MENINGOCOCCAL VACCINES (B) Aged Out N o longer eligible based on patient's age to complete this topic Medical Devices Not on file Procedures Procedure Name Priority Date/Time Associated Diagnosis Comments OUTSIDE HEMOGLOBIN A1C Routine 11/03/2024 OUTSIDE POTASSIUM LEVEL Routine 11/03/2024 OUTSIDE SERUM CREATININE LEVEL Routine 11/03/2024 DIABETES EYE EXAM FOR RESULT ENTRY ONLY Routine 06/20/2011 from Last 3 Months or Most Recently Relevant to Health Maintenance Results * Outside Potassium Level (11/03/2024) Potassium level - External 4.5 3.4 - 5.0 mmol/L EXTERNAL NON-INTERFACED REF LAB [facility] Provider MD LAB BLOOD ORDERABLES Veronica l Result Performing Organization Address City/[facility]/ZIP Co de Phone Number EXTERNAL NON-INTERFACED REF LAB * Outside HbA1c (11/03/2024) Hemoglobin A1c - External 6.1 % EXTERNAL NON-INTERFACED REF LAB [facility] Provider MD LAB BLOOD ORDERABLES Veronica l Result EXTERNAL NON-INTERFACED REF LAB * (ABNORMAL) Outside Serum Creatinine Level (11/03/2024) Creatinine, serum - External 0.78(A) 0.8 - 1.3 mg/dL EXTERNAL NON-INTERFACED REF LAB [facility] Provider MD LAB BLOOD ORDERABLES Veronica l Result Performing Organization Address City/[facility]/ZIP Co de Phone Number EXTERNAL NON-INTERFACED REF LAB * DIABETES EYE EXAM FOR RESULT ENTRY ONLY (06/20/2011) EYE EXAM . [facility] Provider MD HEALTH MAINTENANCE Final Result from Last 3 Months or Most Recently Relevant to Health Maintenance Insurance [employer] MED[employer] HMO REPLACEMENT MEDICARE HMO REPLACEMENT MEDICARE HMO REPLACEMENT MEDICARE HMO REPLACEMENT [employer] [employer] REPLAC[employer] MEDICARE HMO REPLACEMENT [employer] [employer] HMO REPLACEMENT [employer] [employer] REPLACEMENT Care Teams Vehicle Monitor Technician Relationship Specialty Start Date End Date Sam Pitts MD [address] [place] [id number] [email or web address] PCP - General Internal Medicine 10/30/23 Additional Source Comments The information contained in this document represents components of the legal health record. It is not the complete legal health record.[facility]
--- OUTSIDE RECORDS SUMMARY | 2025-07-28 12:45 | XMS_ITS | Patient Health Record ---
Author Organization [facility] Address [address] [place] [address] Care Team Providers Care Credit Support Specialist Name Role Phone Ijeoma ACOSTA, [place] [...] Problem Status W/U Status Risk Notes Problem [id number] Colon cancer screening (Z12.11) Active confirmed Problem [id number] half-way (current) use of aspirin (Z79.82) Active confirmed Plan Of Treatment Future Test Test Name Order Date COLONOSCOPY 10/01/2013 COLONOSCOPY 04/14/2019 Insurance Providers Payer Name Payer Address Payer Phone Subscriber Number Group Number Insured Name Patient Relationship to Insured Coverage Start Date Coverage End Date [facility] [address] [place] [address] [id number] ANJU ESPINAL Self - patient is the insured Medicare of [facility] [address] [place] [address] [id number] ANJU ESPINAL Self - patient is the insured Medical (General) History Medical History History ICD Code colonoscopy 02/04/14, tubular adenoma x1 GERD elevated cholesterol coronary artery disease, history of [place] Surgical History Surgery Date(Month/Year) hernia surgery finger surgery stent placement 2006
== END 2025-07-28 12:01 | disposition home or self-care (01) ==
LOC: HO.HOS 11:24
PROVIDERS: PCP Internal Medicine; Visit Provider Orthopaedic Surgery
DX: M25.562 Pain in left knee (principal)
CPT/HCPCS: 99024

== ENCOUNTER → 2025-07-28 11:24 | Outpatient (BNVA) | payer MEDICARE, SELFPAY | PROVIDERS: PCP Internal Medicine; Visit Provider Orthopaedic Surgery | DX: M25.562 Pain in left knee (principal) | CPT/HCPCS: 99212 ==

== ENCOUNTER 2025-09-28 11:29 | Outpatient (AMB) | payer MEDICARE, SELFPAY ==
--- NOTE | 2025-09-28 11:56 | A.OFFVIS_ITS ---
Intake Visit Reasons: Left knee pain Intake Note: Luc is a 79 year old male who presents with complaints of mild intermittent discomfort in his left knee after undergoing left knee arthroscopic surgery on 07/15/2025. He continues with his home exercise program. He denies any fevers or chills. Allergies No Known Allergies Allergy (Verified 07/28/25 11:39) Medication List - Last Reconciled 09/28/25 by Wiliam Rowan MD aspirin (Adult Aspirin Regimen) 81 mg PO DAILY atorvastatin 80 mg PO DAILY ezetimibe (Zetia) 10 mg PO DAILY finasteride 5 mg PO DAILY isosorbide mononitrate ER 30 mg PO DAILY lisinopril 10 mg PO DAILY meloxicam 15 mg PO DAILY PRN metoprolol succinate ER 50 mg PO DAILY multivitamin 1 tab PO DAILY omeprazole 20 mg PO DAILY PFSH Medical History Ambulates with cane Bilateral numbness and tingling of arms and legs AUGUST (dyspnea on exertion) Chronic cough Snores Impaired fasting glucose Back pain BPH (benign prostatic hyperplasia) GERD (gastroesophageal reflux disease) Arthritis Hyperlipidemia HTN (hypertension) CAD (coronary artery disease) Surgical History H/O heart artery stent (~2014) Hx of arthroscopy of left knee (04/02/24) History of excision of mass H/O colonoscopy Stented coronary artery Family History Father Cancer Mother Cancer Social History Household Members: Family Housing: House Are you a primary critical care transport nurse to a significant other at home: No Do you presently have visiting nurse or other home services: No Patient Tobacco Use Status: Former Tobacco user Tobacco use type: Cigarette Current occupational status: retired Current occupation: 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 Physical Exam Extrem Other: Left knee examination shows that the surgical incisions are well healed, no erythema, mild crepitus with range of motion, no instability Assessment & Plan Assessment & Plan (1) Left knee pain: Code(s): M25.562 - Pain in left knee Category: Medical Plan Mr. Boswell continues to do fairly well after undergoing left knee arthroscopic surgery on 07/15/2025. He will continue with his home exercise program. He will contact me prior to his follow-up appointment in 3 months should any questions or concerns arise. Feel free to call me at any time should questions regarding his orthopedic management arise. Coding Level of Care Code Global (21942) Diagnoses Left knee pain M25.562
--- OUTSIDE RECORDS SUMMARY | 2025-09-28 14:54 | XMS_ITS | Patient Health Record ---
Author Organization [facility] Address [address] [place] [address] Care Team Providers Care Wood Technologist Name Role Phone Sam Pitts MD Primary Care Provider Unavaila ble Neto Doris Unavailable [phone] Reason For Referral No Information Medications Medication [...] Insured Coverage Start Date Coverage End Date [facility] [address] [place] [address] [phone] [id number] Luc Boswell Self - patient is the insured Medical (General) History Medical History History ICD Code Cholesterol Chicken pox High blood pressure Measles Mumps Heart valve conditions/replacement Surgical History Surgery Date(Month/Year) stent insertion gall stones
--- OUTSIDE RECORDS SUMMARY | 2025-09-28 14:54 | XMS_ITS | Clinical Summary ---
Author Organization [facility] Address [address] [place] [address] Phone Care Team Providers Care Raw Juice Weigher Name Role Phone Sam Pitts MD Primary Care Provider [phone] Allergies No known active allergies Surgical History Surgery Date Site/Laterality Comments CHOLECYSTECTOMY PROCEDURE: [place] LAPAROSCOPY SURG CHOLECYSTECTOMY HERNIA REPAIR PROCEDURE: HISTORICAL HERNIA REPAIR/UMB KNEE ARTHROSCOPY 07/27/2020 Left PROCEDURE: NV ARTHROSCOPY AID TX SPINE&/FX KNEE W/O FIXJ; COMMENT: Partial Medial Meniscectomy, Dr. Esteves HAND SURGERY Right PROCEDURE: HISTORICAL HAND SURGERY; COMMENT: Long Finger repair, due to traumatic injury OTHER SURGICAL HISTORY PROCEDURE: [place] PATIENT HAS A CORONARY ARTERY STENT; COMMENT: [...] mmol/L LAB CHEMISTRY METHOD 01/14/2025 1:21 PM [facility] Potassium 4.2 3.5 - 5.5 mmol/L LAB CHEMISTRY METHOD 01/14/2025 1:21 PM [facility] Chloride 110 96 - 110 mmol/L LAB CHEMISTRY METHOD 01/14/2025 1:21 PM [facility] CO2 26 21 - 32 mmol/L LAB CHEMISTRY METHOD 01/14/2025 1:21 PM [facility] Anion Gap 3 3 - 11 LAB CHEMISTRY METHOD 01/14/2025 1:21 PM [facility] Glucose 106(H) 70 - 100 mg/dL LAB CHEMISTRY METHOD 01/14/2025 1:[address] [facility] BUN 19 5 - 25 mg/dL LAB CHEMISTRY METHOD 01/14/2025 1:21 PM [facility] Creatinine 0.70 0.70 - 1.30 mg/dL LAB CHEMISTRY METHOD 01/14/2025 1:21 PM [facility] eGFR 93 >=60 mL/min/1. 73m2 LAB CHEMISTRY METHOD 01/14/2025 1:[address] [facility] Comment:Calculation based on the Chronic Kidney Disease Epidemiology Collaboration (CKD-EPI) equation refit without adjustment for race. BUN/Creatinine Ratio 27.1 LAB CHEMISTRY METHOD 01/14/2025 1:21 PM [facility] Calcium 9.3 8.5 - 10.5 mg/dL LAB CHEMISTRY METHOD 01/14/2025 1:21 PM [facility] Blood Venous blood specimen / Unknown Venipuncture / Unknown 01/14/2025 12:27 PM EST 01/14/2025 12:52 PM EST [facility] Dennis Linda MD LAB BLOOD ORDERABLES Final Resu lt [facility] [address] [place] [address], from Last 3 Months or Most Recently Relevant to Health Maintenance Insurance [employer] MEDIC[employer] ADVANTAGE Care Teams Raw Juice Weigher Relationship Specialty Start Date End Date Sam Pitts MD [address] [place] [address] PCP - General Internal Medicine 09/24/21
--- OUTSIDE RECORDS SUMMARY | 2025-09-28 14:54 | XMS_ITS | Clinical Summary ---
Author Organization [facility] Address [address] [address] Phone Care Team Providers Care Metal Roaster Name Role Phone Sam Pitts MD Primary Care Provider Allergies No known active allergies Medications metoprolol [...] also going to request his most recent air pollution specialist notes and consider returning to orthopedist [...] Description 10/21/2025 10:00 AM EST Office Visit [facility] Internal Medicine [address] [place] [address] Sam Pitts MD [address] [place] [address] [email or web address] Health Maintenance Due Date Last Done Comments ZOSTER VACCINES (1 of 2) 1993 DIABETIC EYE EXAM 03/18/2018 06/20/2011 RSV VACCINE (1 - 1-dose 75+ series) 2018 HEMOGLOBIN A1C 05/04/2025 11/03/2024, 03/02, 10/23/2022, Additional history exists INFLUENZA VACCINE (#1) 2025 , 08/16/2023, 09/05/2022, Additional history exists COVID-19 VACCINE ( season) 2025 10/18/2024, 08/16/2023, 01/27/2022, Additional history exists BLOOD PRESSURE 08/21/2025 02/18/2025 [...] - 5.0 mmol/L EXTERNAL NON-INTERFACED REF LAB [facility] Provider MD LAB BLOOD ORDERABLES Veronica l Result Performing Organization Address City/[facility]/ZIP Co de Phone Number EXTERNAL NON-INTERFACED REF LAB * Outside HbA1c (11/03/2024) Hemoglobin A1c - External 6.1 % EXTERNAL NON-INTERFACED REF LAB [facility] Provider MD LAB BLOOD ORDERABLES Veronica l Result EXTERNAL NON-INTERFACED REF LAB * (ABNORMAL) Outside Serum Creatinine Level (11/03/2024) Creatinine, serum - External 0.78(A) 0.8 - 1.3 mg/dL EXTERNAL NON-INTERFACED REF LAB [facility] Provider MD LAB BLOOD ORDERABLES Veronica l Result EXTERNAL NON-INTERFACED REF LAB * HM DIABETES EYE EXAM FOR RESULT ENTRY ONLY (06/20/2011) EYE EXAM . Result [facility] Historical Provider MD HEALTH MAINTENANCE Final Result from Last 3 Months or Most Recently Relevant to Health Maintenance Insurance MEDICARE HMO REPLACEMENT MEDICARE HMO REPLACEMENT MEDICARE HMO REPLACEMENT MEDICARE HMO REPLACEMENT MEDICARE HMO REPLACEMENT MEDICARE HMO REPLACEMENT MEDICARE HMO REPLACEMENT [employer] MED[employer] HMO REPLACEMENT [employer] MED[employer] HMO REPLACEMENT Care Teams Metal Roaster Relationship Specialty Start Date End Date Sam Pitts MD [address] [place] [id number] [email or web address] PCP - General Internal Medicine 10/30/23 Additional Source Comments The information contained in this document represents components of the legal health record. It is not the complete legal health record.[facility]
--- OUTSIDE RECORDS SUMMARY | 2025-09-28 14:55 | XMS_ITS | Patient Health Record ---
Author Organization [facility] Address [address] [place] [address] Care Team Providers Care Commissioning Specialist Name Role Phone Ijeoma ACOSTA, [place] [...] GM As directed Orally Over the specified time.; Duration: 1 day(s) 04/14/2019 Active Immunizations Vaccine Route Administration Date Status Comme nts Influenza Unknown 09/09/2018 Administered Problems Problem Type SNOMED Code ICD Code Onset Dates Problem Status W/U Status Risk Notes Problem Colon cancer screening (315544475) Colon cancer screening (Z12.11) Active confirmed Problem Long-term current use of antiplatelet drug ([id number]) termite exterminator (current) use of aspirin (Z79.82) Active confirmed Plan Of Treatment Future Test Test Name Order Date COLONOSCOPY 10/01/2013 COLONOSCOPY 04/14/2019 Insurance Providers Payer Name Payer Address Payer Phone Subscriber Number Group Number Insured Name Patient Relationship to Insured Coverage Start Date Coverage End Date [facility] [address] [place] [address] [id number] ANJU ESPINAL Self - patient is the insured Medicare of [place] [employer] [address] [place] [address] [id number] ANJU ESPINAL Self - patient is the insured Medical (General) History Medical History History ICD Code colonoscopy 02/04/14, tubular adenoma x1 GERD elevated cholesterol coronary artery disease, history of [place] Surgical History Surgery Date(Month/Year) hernia surgery finger surgery stent placement 2006
== END 2025-09-28 12:14 | disposition home or self-care (01) ==
LOC: HO.HOS 11:30
PROVIDERS: PCP Internal Medicine; Visit Provider Orthopaedic Surgery
DX: M25.562 Pain in left knee (principal)
CPT/HCPCS: 99024

== ENCOUNTER → 2025-09-28 11:29 | Outpatient (BNVA) | payer MEDICARE, SELFPAY | PROVIDERS: PCP Internal Medicine; Visit Provider Orthopaedic Surgery | DX: M25.562 Pain in left knee (principal) | CPT/HCPCS: 99212 ==

== ENCOUNTER 2025-11-07 09:47 | Outpatient (REF) | payer MEDICARE, SELFPAY ==
--- NOTE | ~2025-11-07 | XR_ITS ---
EXAMINATION: XR LUMBOSACRAL SPINE CLINICAL INFORMATION: CHRONIC BILATERAL LOW BACK PAIN COMPARISON: December 10, 2023 TECHNIQUE: AP and lateral views FINDINGS: Multilevel syndesmophyte formation, marginal osteophyte formation, endplate sclerosis, subchondral cyst formation and decreased intervertebral disc height throughout the axial skeleton. No acute cortical disruption or gross malalignment. S-shaped curvature of the thoracolumbar spine. No lytic or blastic lesions. Vascular calcifications, aorta. XR/XR lumbar spine 2-3V IMPRESSION: Multilevel thoracolumbar spondylosis without acute fracture or gross listhesis. Electronically signed by: Neftaly Chen MD 11/07/2025 10:55 AM [facility]
--- NOTE | ~2025-11-07 | XR_ITS ---
EXAMINATION: XR BILATERAL HIPS WITH AP PELVIS CLINICAL INFORMATION: BILATERAL HIP PAIN COMPARISON: None available. TECHNIQUE: AP view of the pelvis and single views of each hip were obtained. FINDINGS: No acute fracture, dislocation or suspicious bony lesion. Hip joint spaces are maintained. Alignment is anatomic. Mild symphysis pubis degeneration. SI joints are preserved.. No abnormal soft tissue calcifications. XR/XR hip BI w PEL1V IMPRESSION: No acute findings Electronically signed by: Sea Wood MD 11/07/2025 04:21 PM [facility]
== END 2025-11-07 09:48 | disposition home or self-care (01) ==
LOC: HO.XRAY 09:47
PROVIDERS: PCP Internal Medicine; Visit Provider Internal Medicine
DX: M25.551 Pain in right hip (principal); M25.552 Pain in left hip; G89.29 Other chronic pain; M54.50 Low back pain, unspecified
CPT/HCPCS: 72100; 73521

== ENCOUNTER → 2025-11-07 10:04 | Outpatient (BNV) | payer MEDICARE, SELFPAY | PROVIDERS: PCP Internal Medicine; Visit Provider Radiology Diagnostic Radiology | DX: M25.551 Pain in right hip (principal); M25.552 Pain in left hip; M47.815 Spondylosis without myelopathy or radiculopathy, thoracolumbar region | CPT/HCPCS: 72100; 73521 ==